=== PATIENT | female | born 1950 | race Caucasian/White ===

== ENCOUNTER → 2016-09-29 | Outpatient (CLI) | payer OTHER ==
[~2016-09-29] MED LIST: AMAN100T PO; ASPI-428 PO; AZL/5 PO; CALC500C70 PO; CARB25TA12 PO; CARB25TA16 PO; CLON1TAB3 PO; DIAZ-165 PO; HYDR-5688 PO; IBUP-103 PO; IBUP-1050 PO; KETO10TA PO; MELO7.5T5 PO; NAPR-1169 PO; TAMO20TA47 PO
--- NOTE | 2016-09-29 15:12 | MAMMOGRAPHY REPORT ---
BILATERAL DIGITAL SCREENING MAMMOGRAM WITH CAD: 09/29/2016 CLINICAL HISTORY: Routine screening examination. TECHNIQUE: Current study was also evaluated with a Computer Aided Detection (CAD) system. COMPARISON: Comparison is made to exams dated: 09/26/2015 mammogram, 09/21/2013 mammogram, 09/22/2014 mammogram, 09/20/2012 mammogram, 09/19/2011 mammogram, and 09/18/2010 mammogram - [facility]. BREAST COMPOSITION: The tissue of both breasts is heterogeneously dense, which may obscure small ma sses. FINDINGS: There are possible clustered microcalcifications in the 9:00 to 10:00 left breast, for wh ich additional spot magnification views are recommended. A 6 mm dense asymmetry in the inferior far posterior left breast, only seen on the MLO view could represent normal overlapping fibroglandular tissue, however additional spot compression tomosynthesis views and possibly ultrasound are recommen ded. No other suspicious mass, architectural distortion or cluster of microcalcifications is seen. IMPRESSION: ACR BI-RADS CATEGORY 0: INCOMPLETE EVALUATION: NEED ADDITIONAL IMAGING EVALUATION The possible clustered microcalcifications in the left breast, and a 6 mm asymmetry in the posterior inferior left breast need additional evaluation. The patient will be called to schedule an appointment. Approximately 10% of breast cancers are not detected with mammography. A negative mammographic repor t should not delay biopsy if a clinically suggestive mass is present. Tiffanie Yee M.D. ay/:09/29/2016 14:41:06 Patient Financial Coordinator: Katherine CARRILLO)(Leo), [facility] letter sent: Addl Imaging 0 BI-RADS Code: ACR BI-RADS Category 0: Incomplete Evaluation: Need Additional Imaging Evaluation
== END | disposition home or self-care (01) ==
LOC: C.MAMM 10:38
PROVIDERS: ATTEND Student in an Organized Health Care Education/Training Program
DX: Z12.31 Encounter for screening mammogram for malignant neoplasm of breast (principal); N64.89 Other specified disorders of breast; R92.8 Other abnormal and inconclusive findings on diagnostic imaging of breast

== ENCOUNTER → 2016-10-09 | Outpatient (CLI) | payer OTHER ==
--- NOTE | 2016-10-09 13:26 | MAMMOGRAPHY REPORT ---
UNILATERAL LEFT DIGITAL DIAGNOSTIC MAMMOGRAM TOMOSYNTHESIS: 10/09/2016 CLINICAL HISTORY: Callback from screening mammogram for left breast asymmetry and left breast calcif ications. TECHNIQUE: Breast tomosynthesis in addition to standard 2D mammography was performed. Spot magnifi cation left CC and ML views and spot compression left CC and MLO 2-D and tomosynthesis images were o btained. COMPARISON: Comparison is made to exams dated: 09/29/2016 mammogram, 09/22/2014 mammogram, 09/26/2015 mammogram, 09/21/2013 mammogram, 09/20/2012 mammogram, and 09/19/2011 mammogram - [facility]. BREAST COMPOSITION: The tissue of the left breast is heterogeneously dense, which may obscure small masses. FINDINGS: The previously described asymmetry seen within the left breast posteriorly on the MLO view effaces o n the spot compression view and has the appearance of normal overlapping fibroglandular tissue. Spot magnification views of the left breast demonstrate a small 2 mm cluster of punctate calcificati ons in the left upper inner quadrant posteriorly. In retrospect, the calcifications are likely not significantly changed compared to the cc view from the 09/22/2014 exam, and are therefore probably be nign. There are grouped faint calcifications within the left upper inner quadrant more anteriorly, which a re not clearly stable compared to prior exams and are therefore indeterminant. Stereotactic biopsy is recommended for further evaluation, however, the patient does not want biopsy and would prefer sh ort interval follow-up. It was discussed with the patient that DCIS is in the differential for the calcifications however she would still like to opt for follow-up. Therefore, recommend follow-up di agnostic mammograms in 6 months. IMPRESSION: ACR-BI-RADS CATEGORY 3: PROBABLY BENIGN 1. Grouped faint calcifications in the left upper inner quadrant are not clearly stable compared to prior exams and are therefore indeterminant and stereotactic biopsy is recommended for further evalu ation. However, the patient does not want biopsy and would prefer follow-up. Therefore, recommend follow-up diagnostic mammograms of the left breast in 6 months to reevaluate. 2. Small cluster of calcifications in the left upper inner quadrant posteriorly is likely stable co mpared to the 2014 exam and is therefore probably benign. Recommend follow-up diagnostic mammograms in 6 months to reevaluate. The patient has been verbally notified of the results. Approximately 10% of breast cancers are not detected with mammography. A negative mammographic repor t should not delay biopsy if a clinically suggestive mass is present. Luisa Holt M.D. ah/:10/09/2016 12:21:27 Keel Press Operator: Katherine SYKES(Antionette)(Leo), [facility] letter sent: Follow Up Recommended 3 BI-RADS Code: ACR-BI-RADS Category 3: Probably Benign
== END | disposition home or self-care (01) ==
LOC: C.MAMM 11:03
PROVIDERS: ATTEND Student in an Organized Health Care Education/Training Program
DX: R92.0 Mammographic microcalcification found on diagnostic imaging of breast (principal); N64.9 Disorder of breast, unspecified

== ENCOUNTER → 2016-10-24 | Outpatient (CLI) | payer OTHER ==
[~2016-10-24] MED LIST changes: -TAMO20TA47 PO; +TAMO20TA9 PO
--- NOTE | 2016-10-24 13:24 | Discharge Instructions ---
Discharge Instructions Procedure Procedure Date: Oct 24, 2016. Reason for visit: Left Calcifications. Discharge Discharge Date: Oct 24, 2016. Discharge Diagnosis: status post breast biopsy Medications Restart Stopped Medication(s): ACTIVITY RECOMMENDATIONS: * No lifting, pushing, pulling or exercising the affected side for three days. RETURN TO SCHOOL/WORK: * You may return to work/school after the procedure, but do not perform any strenuous activities for 24 to 48 hours. MEDICATIONS: * Tylenol (two 325 mg) every four to six hours if needed for mild pain (if not allergic to Tylenol). DIET: * Resume previous diet. SPECIAL CARE INSTRUCTIONS: * Keep biopsy site dry for 24 hours. May shower after 24 hours, but do not soak (bathe) incision. * May remove Tegaderm (plastic patch) tomorrow AFTER showering. * Leave the steri-strips on for one week. Allow the steri-strips to fall off by themselves. If not off after one week, you may remove them. You may place a Bandaid crosswise over the strips, if desired. * Apply ice 10 minutes on and 10 minutes off as needed. * Wear a bra at bedtime to sleep more comfortably for 2-3 days. * Your referring physician should have the results after approximately 5 to 7 business days. * Call for unusual bleeding, fever, drainage, etc or if you have any questions call during normal business hours or after hours call Dr Holt, . FOLLOW UP VISIT: Follow-up with Referring Physician as scheduled. [facility] Recommendations: Call your doctor if: * Temperature above 101 degrees * Pain not relieved by pain medicine ordered * There is increased drainage or redness from any incision * You have any unanswered questions or concerns. Your Doctors Instructions noted above were prepared by provider Luisa Holt. Patient Signature Section: Patient Instructions Signature Page Marifer Farida Patient (or Guardian) Signature/Date: I have read and understand the instructions given to me by my caregivers. Caregiver/RN/Doctor Signature/Date: The above-named patient and/or guardian has received patient instructions on this date. + Original Patient Signature Page (only) stays with chart. Please make copy for patient.
--- NOTE | 2016-10-24 14:30 | MAMMOGRAPHY REPORT ---
UNILATERAL LEFT DIGITAL DIAGNOSTIC MAMMOGRAM: 10/24/2016 CLINICAL HISTORY: Status post left breast stereotactic biopsy. TECHNIQUE: Postprocedural left CC and ML views were obtained. COMPARISON: Comparison is made to exams dated: 10/09/2016 mammogram, 09/26/2015 mammogram, 09/22/2014 m ammogram, 09/21/2013 mammogram, and 09/29/2016 mammogram - [facility]. BREAST COMPOSITION: The tissue of the left breast is heterogeneously dense, which may obscure small masses. FINDINGS: There are postbiopsy changes seen in the expected location of the biopsied calcifications in the le ft upper inner quadrant. There is a possible small postbiopsy hematoma at the biopsy site measuring 1.5 cm. A clip was not placed due to patient request. IMPRESSION: POST PROCEDURE IMAGING FOR MARKER PLACEMENT Post biopsy changes noted at the site of the biopsied calcifications in the left upper inner quadran t. Pending benign pathology results, recommend follow-up diagnostic mammograms of the left breast i n 6 months to reevaluate the other cluster of calcifications seen more posteriorly. Approximately 10% of breast cancers are not detected with mammography. A negative mammographic repor t should not delay biopsy if a clinically suggestive mass is present. Luisa Holt M.D. ah/:10/24/2016 13:53:08 Attending Technologist: Rachel CARRILLO)(M), [facility] Horticulturalist: Katherine Narayan, [facility] BI-RADS Code: Post Procedure Imaging For Marker Placement
--- NOTE | 2016-10-24 14:30 | MAMMOGRAPHY REPORT ---
THIS REPORT HAS BEEN AMENDED. STEREOTACTIC GUIDED BIOPSY LEFT BREAST: 10/24/2016 CLINICAL HISTORY: Indeterminate calcifications in the left upper inner quadrant. PATIENT CONSENT: The procedure, risks, benefits, and alternatives of stereotactic biopsy with clip p lacement were discussed with the patient, and verbal and written consent was obtained. The patient refuses clip placement. A timeout was performed immediately prior to the procedure. PROCEDURE DESCRIPTION: With stereotactic guidance, aseptic technique, and lidocaine as a local anest hetic (1% lidocaine to anesthetize the skin and 1% lidocaine with epinephrine to anesthetize the sabas per tissues), the area of concern was sampled multiple times with a 9-gauge vacuum-assisted biopsy n eedle (Suros Eviva). The path of approach was craniocaudal. The specimen radiograph demonstrates c alcifications to be present in the samples. A clip was not placed due to patient request. Direct p ressure was applied at the biopsy site and hemostasis was readily achieved. The patient tolerated t he procedure without complication. Postprocedure mammograms were obtained; see separate dictation f or details. She was given wound care instructions. COMPARISON: Comparison is made to exams dated: 10/09/2016 mammogram, 09/29/2016 mammogram, 09/26/2015 m ammogram, and 09/22/2014 mammogram - [facility]. IMPRESSION: STEREOTACTIC GUIDED BIOPSY Stereotactic biopsy of indeterminate calcifications in the left upper inner quadrant. A biopsy clip was not placed due to patient request. Pending benign pathology results, recommend follow-up diagn ostic mammograms of the left breast in 6 months to confirm stability of the other cluster in the lef t breast far posteriorly. Luisa Holt M.D. ah/:10/24/2016 13:27:18 Attending Technologist: Rachel CARRILLO)(Leo), [facility] Duty Engineer: Katherine Narayan, [facility] AMENDMENT: 10/29/2016 Luisa Holt M.D. The pathology results from stereotactic biopsy of left breast calcifications reviewed on 10/29/2016. The pathology showed atypical ductal hyperplasia, columnar cell change, and microcalcifications ass ociated with benign ductal elements. Given the presence of atypia, surgical excision is recommended . Additionally, given the presence of atypia, recommend stereotactic biopsy of the other smaller cl uster of calcifications seen within the left upper inner quadrant posteriorly.
== END | disposition home or self-care (01) ==
LOC: C.MAMM 12:29
PROVIDERS: ATTEND Student in an Organized Health Care Education/Training Program
DX: R92.0 Mammographic microcalcification found on diagnostic imaging of breast (principal); N60.82 Other benign mammary dysplasias of left breast

== ENCOUNTER → 2017-01-16 | Day surgery (SDC) | payer OTHER ==
[2017-01-13 16:21] VITALS: Ht 170.2 cm; Wt 72.7 kg
[~2017-01-16] VITALS: Ht 170.2 cm; Wt 72.7 kg
[~2017-01-16] MED LIST changes: +DEXAMETHASONE SOD INJ 4 MG/ML VIAL ONE; -IBUP-1050 PO; +LIDOCAINE HCL 1% MPF 5 ML VIAL ONE
--- NOTE | 2017-01-16 07:31 | History & Physical Bridge - SC ---
H&P Re-Evaluation Bridge Note: I have examined the patient, reviewed the History & Physical and in the interval since the performance of the History & Physical I have noted the following changes of clinical significance: No changes noted
--- NOTE | 2017-01-16 07:52 | Discharge Instructions-SurgCtr ---
Discharge Instructions Date of Service Jan 16, 2017. Visit Reason for Visit: Spondylolisthesis Discharge Discharge Diagnosis / Problem: as above Discharge Goals Goal(s): Improve function Activity Recommendations Activity Limitations: as noted below Lifting Limitations: until after follow-up appointment Exercise/Sports Limitations: until after follow-up appointment May Resume Sexual Activity: after follow-up appointment Anesthesia . Post Anesthesia Instructions: If you have had General Anesthesia or IV Sedation: * Do not drive today. * Resume driving when surgeon permits. * Do not make important decisions or sign legal documents today. * Call surgeon for: 1. Temperature elevations greater than 101 degrees F. 2. Uncontrollable pain. 3. Excessive bleeding. 4. Persistent nausea and vomiting. 5. Medication intolerance (nausea, vomiting or rash). * For nausea and vomiting use only clear liquids such as: tea, soda, bouillon until nausea subsides, then gradually increase diet as tolerated. * If you have any concerns or questions, call your surgeon's office. If physician is unavailable and it is an emergency, call 911 or go to the nearest emergency room. . Diet Recommendations Home Diet: no limitations Procedures Procedures Performed: Lumber Epidural Injection L4-L5. Pending Studies Studies pending at discharge: no Medical Emergencies . Who to Call and When: Medical Emergencies: If at any time you feel your situation is an emergency, please call 911 immediately. . Non-Emergent Contact Non-Emergency issues call your: Surgeon . . "Provider Documentation" section prepared by Broderick Rodríguez. .
--- NOTE | 2017-01-16 07:53 | [facility] Post Operative Brief Note ---
Immediate Operative Summary Operative Date Jan 16, 2017. Pre-Operative Diagnosis Spondylolisthesis Post-Operative Diagnosis same Procedure(s) Performed Lumber Epidural Injection L4-L5. Surgeon Dr. Luli Rodríguez Sexual Assault Counsellor Surgeon(s) 0 Estimated Blood Loss 0 Findings spondy Specimens 0 Complication(s) None Disposition Recovery Room / PACU
[2017-01-16 07:56] VITALS: BP 155/87; PULSE 77; TEMP 36.6; O2SAT 99
--- NOTE | 2017-01-16 08:05 | OPERATIVE REPORT ---
DATE OF OPERATION: 01/16/2017 PREOPERATIVE DIAGNOSIS: Grade 1, possibly grade 2 spondylolisthesis, lumbar spine. POSTOPERATIVE DIAGNOSIS: Same. PROCEDURE: Epidural steroid injection L4-L5 lumbar spine. SURGEON: Dr. Rodríguez. PROCEDURE: The patient was taken to the minor procedure room, scrubbed with Betadine. I engaged the 22 gauge Tuohy needle to the epidural space, left side and right side. One mL of dexamethasone injected without incident. The patient tolerated it well with return to recovery in satisfactory and stable. No complications. No blood loss. I attest to the content of the Intraoperative Record and any orders documented therein. Any exception s are noted below.
== END | disposition home or self-care (01) ==
LOC: X.SURG 06:23
PROVIDERS: ATTEND Orthopaedic Surgery Orthopaedic Surgery of the Spine
DX: M43.16 Spondylolisthesis, lumbar region (principal); M54.5 Low back pain; I10 Essential (primary) hypertension; Z85.3 Personal history of malignant neoplasm of breast; Z82.49 Family history of ischemic heart disease and other diseases of the circulatory system; Z82.3 Family history of stroke; Z80.0 Family history of malignant neoplasm of digestive organs; Z80.42 Family history of malignant neoplasm of prostate; Z51.0 Encounter for antineoplastic radiation therapy; D05.12 Intraductal carcinoma in situ of left breast

== ENCOUNTER → 2017-02-06 | Day surgery (SDC) | payer OTHER ==
[2017-02-03 09:13] VITALS: Ht 170.2 cm; Wt 72.7 kg
[~2017-02-06] VITALS: Ht 170.2 cm; Wt 72.7 kg
[~2017-02-06] MED LIST changes: -DIAZ-165 PO; -KETO10TA PO; +TAMO20TA47 PO; -TAMO20TA9 PO
--- NOTE | 2017-02-06 08:19 | [facility] Operative Report ---
Operative Report Operative Date Feb 06, 2017. Pre-Operative Diagnosis si joint pain, stenosis Procedure(s) Performed si joint injection , bilateral. do L2-3 Findings as above Complication(s) None Disposition Recovery Room / PACU I attest to the content of the Intraoperative Record and any orders documented therein. Any exceptions are noted below.
--- NOTE | 2017-02-06 08:33 | [facility] Post Operative Brief Note ---
Immediate Operative Summary Operative Date Feb 06, 2017. Pre-Operative Diagnosis Low Back Pain and Lower Extremity Difficulty Post-Operative Diagnosis same Procedure(s) Performed L4-[address] Rodríguez Rag Baler Surgeon(s) none Estimated Blood Loss 0ml Findings stenosis Specimens none Complication(s) None Disposition Recovery Room / PACU
--- NOTE | 2017-02-06 08:33 | Discharge Instructions-SurgCtr ---
Discharge Instructions Date of Service Feb 06, 2017. Visit Reason for Visit: Spondylolisthesis Discharge Discharge Diagnosis / Problem: same Discharge Goals Goal(s): Improve function Activity Recommendations Activity Limitations: as noted below Exercise/Sports Limitations: until after follow-up appointment May Resume Sexual Activity: after follow-up appointment Shower/Bathe: no limitations Anesthesia . Post Anesthesia Instructions: If you have had General Anesthesia or IV Sedation: * Do not drive today. * Resume driving when surgeon permits. * Do not make important decisions or sign legal documents today. * Call surgeon for: 1. Temperature elevations greater than 101 degrees F. 2. Uncontrollable pain. 3. Excessive bleeding. 4. Persistent nausea and vomiting. 5. Medication intolerance (nausea, vomiting or rash). * For nausea and vomiting use only clear liquids such as: tea, soda, bouillon until nausea subsides, then gradually increase diet as tolerated. * If you have any concerns or questions, call your surgeon's office. If physician is unavailable and it is an emergency, call 911 or go to the nearest emergency room. . Diet Recommendations Home Diet: no limitations Procedures Procedures Performed: L4-5 Epidural Steroid Injection Pending Studies Studies pending at discharge: no Medical Emergencies . Who to Call and When: Medical Emergencies: If at any time you feel your situation is an emergency, please call 911 immediately. . Non-Emergent Contact Non-Emergency issues call your: Surgeon . . "Provider Documentation" section prepared by Broderick Rodríguez. .
[2017-02-06 08:36] VITALS: TEMP 36.9
--- NOTE | 2017-02-06 08:36 | [facility] Operative Report ---
Operative Report Operative Date Feb 06, 2017. Pre-Operative Diagnosis Low Back Pain and Lower Extremity Difficulty Procedure(s) Performed do Surgeon Dr Rodríguez Head Athletic Trainer/Strength Coach Surgeon(s) none Estimated Blood Loss 0ml Findings stenosis Specimens none Complication(s) None Disposition Recovery Room / PACU I attest to the content of the Intraoperative Record and any orders documented therein. Any exceptions are noted below.
[2017-02-06 08:43] VITALS: BP 155/92; PULSE 73; O2SAT 100
--- NOTE | 2017-02-18 07:03 | [facility] Operative Report ---
Operative Report Operative Date Feb 18, 2017. Pre-Operative Diagnosis Low Back Pain and Lower Extremity Difficulty Post-Operative Diagnosis same Procedure(s) Performed L4-[address] Rodríguez Applications Trainer Surgeon(s) none Estimated Blood Loss 0ml Findings stenosis and spondylolisthes Specimens none Complication(s) None Disposition Recovery Room / PACU Description of Procedure do L4-5 I attest to the content of the Intraoperative Record and any orders documented therein. Any exceptions are noted below.
== END | disposition home or self-care (01) ==
LOC: X.SURG 06:41
PROVIDERS: ATTEND Orthopaedic Surgery Orthopaedic Surgery of the Spine
DX: Z51.0 Encounter for antineoplastic radiation therapy (principal); D05.12 Intraductal carcinoma in situ of left breast; M53.3 Sacrococcygeal disorders, not elsewhere classified; M48.06 Spinal stenosis, lumbar region
CPT/HCPCS: 62323; G0260

== ENCOUNTER → 2017-02-20 | Outpatient (CLI) | payer OTHER ==
[~2017-02-20] MED LIST changes: -ASPI-428 PO; -CALC500C70 PO; -DEXAMETHASONE SOD INJ 4 MG/ML VIAL ONE; -LIDOCAINE HCL 1% MPF 5 ML VIAL ONE; -TAMO20TA47 PO
[2017-02-20 17:04] LABS: BLOOD UREA NITROGEN 18 mg/dl (7-18)
== END | disposition home or self-care (01) ==
LOC: C.LAB 15:06
PROVIDERS: ATTEND Orthopaedic Surgery Orthopaedic Surgery of the Spine
DX: M47.817 Spondylosis without myelopathy or radiculopathy, lumbosacral region (principal)

== ENCOUNTER → 2017-02-23 | Outpatient (CLI) | payer OTHER ==
[~2017-02-23] MED LIST changes: +CALC500C70 PO; +GADAVIST IV PRN; +TAMO20TA47 PO
--- NOTE | 2017-02-23 09:47 | DIAGNOSTIC IMAGING REPORT ---
MRI LUMBAR SPINE COMBINATION CLINICAL HISTORY: Severe back pain. History of breast carcinoma. TECHNIQUE: Sagittal and axial T1, T2 and STIR images were obtained. COMPARISON STUDY: No previous studies for comparison. OBSERVATIONS: There are no areas of marrow replacement viewed as suspicious for metastatic disease. L1-2: No disc protrusions or extrusions. No evidence of spinal canal or neural foraminal compromise. L2-3: No disc protrusions or extrusions. No evidence of spinal canal or neural foraminal compromise. L3-4: There is a mild circumferential disc bulge. There is a slight triangular configuration of the thecal sac, but significant spinal stenosis is not felt to be present L4-5: There is a grade 1 spondylolisthesis of L4 on L5. There is a broad-based disc protrusion. There is moderate spinal stenosis. There is bilateral facet joint arthropathy. There is bilateral foraminal narrowing. L5-S1: No disc protrusions or extrusions. No evidence of spinal canal or neural foraminal compromise. The conus medullaris and cauda equina appear normal. There are no pathologically enhancing masses. IMPRESSION: Multilevel degenerative changes. The study is most significant for a broad-based disc protrusion at the L4-5 level. This in association with facet joint arthropathy, and a grade 1 spondylolisthesis of L4 on L5 results in moderate spinal stenosis and bilateral foraminal narrowing Electronically signed by: Zhao Gaona M.D. 02/23/2017 9:46 AM Dictated Date/Time: 02/23/2017 9:41 AM
== END | disposition home or self-care (01) ==
LOC: C.MRIBC 08:28
PROVIDERS: ATTEND Orthopaedic Surgery Orthopaedic Surgery of the Spine
DX: M47.817 Spondylosis without myelopathy or radiculopathy, lumbosacral region (principal); Z85.3 Personal history of malignant neoplasm of breast

== ENCOUNTER → 2017-03-17 | Outpatient (CLI) | payer OTHER ==
[~2017-03-17] MED LIST changes: -GADAVIST IV PRN; -MELO7.5T5 PO; -NAPR-1169 PO
[2017-03-17 15:05] VITALS: BP 156/83; PULSE 76; TEMP 36.8; O2SAT 99
--- NOTE | 2017-03-17 16:19 | Radiation Oncology Follow-Up ---
Radiation Oncology Follow-Up Date of Visit Mar 17, 2017. 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 Last Edited By: Zeynep Bardales on Mar 06, 2017 09:23 History of Present Illness Ms. Iqbal is a 66-year-old female with Parkinson's disease who recently presented with an abnormal finding on a bilateral digital screening mammogram completed on 09/29/2016; the mammogram revealed a cluster of microcalcification in the left breast and a 6 mm asymmetry in the posterior inferior left breast. The patient underwent a unilateral left digital diagnostic mammogram with Tomosynthesis on 10/09/2016 which confirmed a grouped faint calcification a left upper inner quadrant breast which are not clearly stable as well as a small cluster of calcifications in the left upper inner quadrant that did appear stable. The patient underwent a stereotactic guided biopsy on 2016 of the breast mass in the left upper inner quadrant. Pathology from the biopsy revealed atypical ductal hyperplasia and no evidence of invasive carcinoma. The patient was referred to Dr. Valeria Marin who recommended an excisional biopsy to confirm no evidence of DCIS or invasive carcinoma. The patient underwent a left breast lumpectomy on 11/25/2016 which revealed ductal carcinoma in situ that measured at least 10 mm in the greatest dimension; the tumor was grade 2 and there was comedonecrosis present. The margins were close and measured 0.5 mm. The tumor was estrogen receptor positive and progesterone receptor positive. Dr. Marin brought the patient back for a reexcision to obtain larger margins on 12/17/2016; the pathology revealed 2 foci of low grade residual ductal carcinoma in situ with a new 1.5 mm margin. Ultimately, Dr. Marin was able to achieve negative margins. The patient was seen by Dr. Rigoberto Blake from medical oncology who recommended tamoxifen or Femara for [address] Blake and Dr. Marin both recommended consideration of adjuvant radiation therapy. We are now seeing the patient in consultation. She had a CT simulation was found to be a candidate for hypo-fractionation. Radiation was completed 02/17/2017 she received 5130 cGy. The patient is doing relatively well overall. She states her only significant issues that sometimes she does have difficulty with unintentional tremors due to her Parkinson's disease. Otherwise, she has healed up well from surgery. She completed a CT simulation was found to be a candidate for hypo- fractionation. Radiation was completed 02/11/2017 she received 5130 cGy. Interim History She's been doing well over this past month she did have dry skin. The dark skin has been peeling. She had swelling at the nipple which was tender. She's been using aloe vera on the nipple. She's been using the Lidex to the outer portion of the breast. She's noted no masses or tenderness and no change in the axilla. She is seen Dr. Marin in follow-up and mammography has been scheduled. She is seeing Dr. Blake and is now on tamoxifen. She is tolerating this other than hot flashes. Allergies Coded Allergies: Adhesives (Verified Allergy, Unknown, Rash, 02/06/17) Gold (Verified Allergy, Unknown, Rash, 02/06/17) Nickel (Verified Allergy, Unknown, Discolors skin, 02/06/17) Home Medications Scheduled Amantadine Hcl (Symmetrel), 1 TAB PO BID Calcium/Vitamin D (Os-Elvis 500 Plus D), 1 TAB PO DAILY Carbidopa/Levodopa (Sinemet Cr 25MG/100MG), 2 TAB PO HS Carbidopa/Levodopa (Sinemet 25MG/100MG), 1 TAB PO QID Hydrocodone/Acetaminophen 5MG/325MG ([place] 5MG/325MG), 1 TAB PO Q6 Ibuprofen Tab (Advil), 200 MG PO QID Rasagiline (Azilect), 0.5 TAB PO QAM Scheduled PRN Clonazepam (Klonopin), 1 MG PO HS PRN for Insomnia Miscellaneous Medications Tamoxifen (Nolvadex), 20 MG PO Review of Systems Gastrointestinal: Symptoms: Constipation GI Comments: Chronic constipation - manageable at home; Oral: Symptoms: No Problems Respiratory: Symptoms: WNL Urinary: Symptoms: WNL Skin: Other Skin Symptoms: Dry peely dark brown old desq on left breast/areola/ nipple Breast: Right Upper Arm Measurement: 32.0 Right Mid Arm Measurement: 24.8 Right Wrist Measurement: 16.0 Left Upper Arm Measurement: 33.0 Left Mid Arm Measurement: 24.5 Left Wrist Measurement: 15.5 Arm Dominence: Left Physical Exam Vital Signs Date Time Temp Pulse Resp B/P (MAP) Pulse Ox O2 Delivery O2 Flow Rate FiO2 03/17/17 15:05 36.8 76 20 156/83 99 Pain: Patient Pain Scale: 0 - 10 Initial Pain Intensity: 1.0 Fatigue: None General Appearance: no apparent distress Eyes: normal inspection, EOMI ENT: normal ENT inspection, hearing grossly normal Neck: supple, no adenopathy, thyroid normal Respiratory/Chest: lungs clear, no respiratory distress, no accessory muscle use Breast: Breast examination reveals well-healed incisions of the left breast. She has resolving hyperpigmentation. There is mild swelling at the nipple. There are no masses or tenderness no axillary adenopathy. Using the [place] score cosmesis she currently has a fair outcome due to the hyperpigmentation that is resolving. The right breast showed no masses or tenderness and no axillary adenopathy. Cardiovascular: regular rate, rhythm, no gallop, no murmur Abdomen: non tender, soft Extremities: no pedal edema Neurologic/Psychiatric: no motor/sensory deficits, alert, normal mood/affect Skin: warm/dry Laboratory Studies Test 02/20/17 15:36 Blood Urea Nitrogen 18 mg/dl (7-18) Creatinine 0.80 mg/dl (0.60-1.20) Estimated GFR () 89.0 Estimated GFR (Non- 76.8 Assessment & Plan Plan: Patient is also seen and examined by Dr. Ag. She continues on tamoxifen. Follow-up mammography has been scheduled. She is going to continue to have these at [facility]. She has Parkinson's and has tremors and occasional involuntary movements. She stated at this facility mammography can be done with her sitting in a chair. This helps to keep her in the same position. Today we completed a cancer survivorship care plan. A copy the documents given to the patient. She was given Aquaphor to be used at bedtime. She is can tingling the aloe vera to the nipple. We asked her to return to our office in one month. She may call if she has any questions or concerns in the interim. I agree with note created by Zeynep Bardales PA-C. I reviewed the patient's chart and information with her. I have examined and evaluated the patient. I reviewed relevant clinical information and answered the patient's and/or family' s questions. Total Time In Follow-Up I spent 20 minutes speaking to the patient performing examination. I spent 20 minutes reviewing information, preparing the survivorship document, and completing this note. AK I spent 15 minutes examining and counseling the patient. OUTREACH DIRECTOR Copy To Valeria Marin MD; Jo Ann Smith D.O.; Rigoberot Blake M.D.
== END | disposition home or self-care (01) ==
LOC: C.ONC 14:44
PROVIDERS: ATTEND Physician Assistant Medical
DX: D05.12 Intraductal carcinoma in situ of left breast (principal)

== ENCOUNTER → 2017-09-22 | Outpatient (CLI) | payer OTHER ==
[2017-03-17 15:05] VITALS: BP 156/83; PULSE 76
[~2017-09-22] MED LIST changes: +DOCU-94 PO; +FMR25 PO; -HYDR-5688 PO; -TAMO20TA47 PO
[2017-09-22 13:27] VITALS: BP 153/79; PULSE 80; TEMP 36.6; O2SAT 100
--- NOTE | 2017-09-22 16:18 | Radiation Oncology Follow-Up ---
Radiation Oncology Follow-Up Date of Visit Sep 22, 2017. 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 Last Edited By: Zeynep Bardales on Mar 06, 2017 09:23 History of Present Illness Ms. Iqbal has a history of Parkinson's disease who recently presented with an abnormal finding on a bilateral digital screening mammogram completed on 2016; the mammogram revealed a cluster of microcalcification in the left breast and a 6 mm asymmetry in the posterior inferior left breast. The patient underwent a unilateral left digital diagnostic mammogram with Tomosynthesis on 10/09/2016 which confirmed a grouped faint calcification a left upper inner quadrant breast which are not clearly stable as well as a small cluster of calcifications in the left upper inner quadrant that did appear stable. The patient underwent a stereotactic guided biopsy on 10/24/2016 of the breast mass in the left upper inner quadrant. Pathology from the biopsy revealed atypical ductal hyperplasia and no evidence of invasive carcinoma. The patient was referred to Dr. Valeria Marin who recommended an excisional biopsy to confirm no evidence of DCIS or invasive carcinoma. The patient underwent a left breast lumpectomy on 11/25/2016 which revealed ductal carcinoma in situ that measured at least 10 mm in the greatest dimension; the tumor was grade 2 and there was comedonecrosis present. The margins were close and measured 0.5 mm. The tumor was estrogen receptor positive and progesterone receptor positive. Dr. Marin brought the patient back for a reexcision to obtain larger margins on 12/17/2016; the pathology revealed 2 foci of low grade residual ductal carcinoma in situ with a new 1.5 mm margin. Ultimately, Dr. Marin was able to achieve negative margins. The patient was seen by Dr. Rigoberto Blake from medical oncology who recommended tamoxifen or Femara for [address] Blake and Dr. Marin both recommended consideration of adjuvant radiation therapy. We are now seeing the patient in consultation. She had a CT simulation was found to be a candidate for hypo-fractionation. Radiation was completed 02/17/2017 she received 5130 cGy. The patient is doing relatively well overall. She states her only significant issues that sometimes she does have difficulty with unintentional tremors due to her Parkinson's disease. Otherwise, she has healed up well from surgery. She completed a CT simulation was found to be a candidate for hypo- fractionation. Radiation was completed 02/11/2017 she received 5130 cGy. Interim History She's been doing well over the past 6 months. She has noted no changes to her breast. She denies any areas of pain or tenderness area and she is noted no masses. She has a tight feeling in the axilla. She has been doing stretching exercises and this has improved. She's been seen in follow-up by Dr. Marin. She is scheduled for mammography on 10/02/2017. She had been started on tamoxifen. This was discontinued due to side effects. This was especially the side effect of hot flashes. She also had a metallic taste in her mouth as well as feeling of being emotional. The medication was changed to Femara and this is better tolerated. Allergies Coded Allergies: Adhesives (Verified Allergy, Unknown, Rash, 08/04/17) Gold (Verified Allergy, Unknown, Rash, 08/04/17) Nickel (Verified Allergy, Unknown, Discolors skin, 08/04/17) Home Medications Scheduled Amantadine Hcl (Symmetrel), 1 TAB PO BID Calcium/Vitamin D (Os-Elvis 500 Plus D), 1 TAB PO DAILY Carbidopa/Levodopa (Sinemet Cr 25MG/100MG), 2 TAB PO HS Carbidopa/Levodopa (Sinemet 25MG/100MG), 1 TAB PO QID Letrozole (Femara), 2.5 MG PO DAILY Rasagiline (Azilect), 0.5 TAB PO QAM Scheduled PRN Clonazepam (Klonopin), 1 MG PO HS PRN for Insomnia Docusate Sodium (Colace), 1 CAP PO DAILY PRN for Constipation Ibuprofen Tab (Advil), 200 MG PO QID PRN for Pain Review of Systems Gastrointestinal: Symptoms: Constipation GI Comments: Chronic constipation manageable at home; Oral: Symptoms: No Problems Respiratory: Symptoms: WNL Urinary: Symptoms: Incontinence Comments: Can have urinary leakage- as getting on commode will leak Skin: Symptoms: No Problems Other Skin Symptoms: Dry peely dark brown old desq on left breast/areola/ nipple Breast: Right Upper Arm Measurement: 32.5 Right Mid Arm Measurement: 24.5 Right Wrist Measurement: 15.5 Left Upper Arm Measurement: 32.0 Left Mid Arm Measurement: 24.0 Left Wrist Measurement: 15.0 Arm Dominence: Right Physical Exam Vital Signs Date Time Temp Pulse Resp B/P (MAP) Pulse Ox O2 Delivery O2 Flow Rate FiO2 09/22/17 13:27 36.6 80 16 153/79 100 Fatigue: None General Appearance: no apparent distress Eyes: normal inspection, EOMI ENT: normal ENT inspection, hearing grossly normal Neck: no adenopathy, thyroid normal Respiratory/Chest: lungs clear, no respiratory distress, no accessory muscle use Breast: Breast examination reveals well-healed incisions of the left breast. There are no masses or tenderness and no axillary adenopathy. She has no skin retractions or nipple changes. Using the [place] score cosmesis she has a excellent outcome. The right breast showed no masses or tenderness and no axillary adenopathy. Cardiovascular: regular rate, rhythm, no gallop, no murmur Extremities: no pedal edema Neurologic/Psychiatric: no motor/sensory deficits, alert, normal mood/affect Skin: warm/dry Pain Management Patient Reports Pain: Yes (States her back pain can "be anywhere and down either leg") Pain Location: Left lower back/back of top of legs Patient Preferred Pain Scale: 0 - 10 Initial Pain Intensity: 1.0 Pain Management Plan Her pain is minimal. She requires no pain management through our office. Laboratory Laboratory Results: not applicable Pathology Pathology Results: not applicable Imaging Imaging Studies: were reviewed, and pertinent findings noted below Imaging Comments Results MAMMOGRAM, DIAGNOSTIC, UNILAT [G0206.3] (Spec. #[id number]) (Order [id number]) Date/Time of Imaging Study Study Completed: 05/08/2017 9:53 AM [employer] PACS Image Narrative Comparison is made to images from 11/25/2016 and images from 11/17/2016 (left) and images from 10/24/2016 and images from 10/09/2016 and images from 09/29/2016 and images from 09/26/2015. Left Breast Findings: The breast is heterogeneously dense (51% - 75% fibroglandular). This may lower the sensitivity of mammography. Post surgical changes related to breast conserving surgery for carcinoma (DCIS and ADH) are noted in the upper inner left breast. A linear wire marker indicates the overlying skin scar related to lumpectomy in this region. No new dominant mass or clustered microcalcifications suspicious for malignancy are identified. Authenticated By Authenticating Date Authenticating Time Reading Providers(s) NAHUM PATRICK MD 05-08-2017 14:37 NAHUM PATRICK MD IMPRESSION: LEFT BREAST: Findings are probably benign. A short interval follow-up is recommended in 6 months. Note: Approximately 10% of breast cancers are not detected on mammography. A negative mammographic report should not delay biopsy if a clinically suggestive mass is present. This mammogram has been analyzed with the computer aided detection system. Tomosynthesis was done. This notice contains the results of your recent mammogram, including information about breast density. If your mammogram shows that your breast tissue is dense, you should know that dense breast tissue is a common finding and is not abnormal. Statistics show many women could have dense or highly dense breasts. Dense breast tissue can make it harder to find cancer on a mammogram and may be associated with an increased risk of cancer. This information about the result of your mammogram is given to you to raise your awareness and to inform your conversations with your physician. Together, you can decide which screening options are right for you, based on your mammogram results, individual risk factors or physical examination. A report of your results was sent to your physician. Your mammographic breast density on today's study is described above. There are four categories of breast density on mammography. Fatty breasts and those with scattered fibroglandular tissue are not considered dense. Heterogeneously dense or extremely dense tissue is considered "dense". Please understand that assessment of breast density may vary from year to year. OVERALL ASSESSMENT - CATEGORY 3 - PROBABLY BENIGN; Follow up Bilateral Diagnostic mammogram is advised in September of 2017 at which time patient will be due for her annual follow up mammogram or sooner if clinically warranted.The above findings and recommendations were discussed with and understood by the patient. END OF IMPRESSION Assessment & Plan Plan: Patient was also seen and examined by Dr. Ag. She will be having a recheck mammogram 10/02/2017. She continues on the antiestrogen therapy. Continue follow-up with Dr. Marin, her primary care physician, and Dr. Ag in medical oncology. We asked her to return to our office in 1 year. She may call our office if she has any questions or concerns in the interim. She'll continue the stretching exercises for the axilla. Assessment & Plan (Attending) I agree with note created by Zeynep Bardales PA-C. I reviewed the patient's chart and information with her. I have examined and evaluated the patient. I reviewed relevant clinical information and answered the patient's and/or family' s questions. CILNICAL SCIENTIST Total Time In Follow-Up I spent 20 minutes speaking to the patient and performing examination. I spent 15 minutes reviewing information and completing this note. AK Total Time (Attending) In Follow-Up I spent 15 minutes examining and counseling the patient. CILNICAL SCIENTIST Copy To Valeria Marin MD; Jo Ann Smith D.O.; Jules Ag M.D.
== END | disposition home or self-care (01) ==
LOC: C.ONC 13:19
PROVIDERS: ATTEND Physician Assistant Medical
DX: Z08 Encounter for follow-up examination after completed treatment for malignant neoplasm (principal); Z92.3 Personal history of irradiation; Z85.3 Personal history of malignant neoplasm of breast

== ENCOUNTER 2017-11-01 12:08 | Emergency (ER) | payer OTHER ==
[~2017-11-01] VITALS: Ht 170.2 cm; Wt 74.4 kg
[2017-11-01 12:11] VITALS: TEMP 36.8; Ht 170.2 cm; Wt 74.4 kg
[2017-11-01] MEDS ORDERED: HYDROmorphone INJ 1 MG/ML SYR IV STA (12:32)
[2017-11-01] MEDS ORDERED: ONDANSETRON INJ 2 MG/ML 2 ML VIAL IV STA (12:32)
--- NOTE | 2017-11-01 12:38 | EMERGENCY ROOM VISIT NOTE ---
History Report prepared by Yrn: Rito Argueta Under the Supervision of: Dr. Jose Luis Guaman M.D. First contact with patient: 12:20 Chief Complaint: BACK PAIN Stated Complaint: BACK PAIN/ THORNE History of Present Illness The patient is a 67 year old female who presents to the Emergency Room with complaints of constant back pain beginning two days ago. The patient states that she had a spinal fusion surgery for a ruptured herniated disc done 12 days ago. She notes that she was doing well following her surgery and was discharged home. She reports that she developed a headache yesterday, prompting her to come to the emergency department today. She also complains of constipation but states that her constipation is chronic. The patient notes that took oxycodone, 2 250mg Tylenol tablets, and a muscle relaxer this morning at around 0800 with no relief of her symptoms. She reports that she has a history of breast cancer and Parkinson's disease. She rates her pain as a 5/10. Source of History: patient Onset: two days ago Position: back Symptom Intensity: 5/10 Timing: constant Associated Symptoms: + headache Note: The patient also complains of constipation. Review of Systems See HPI for pertinent positives & negatives. A total of 10 systems reviewed and were otherwise negative. Past Medical & Surgical Medical Problems: (1) Intraductal carcinoma of left breast (2) Parkinson disease (3) Previous back surgery (4) Ruptured disk Family History No pertinent family history stated. Social History Smoking Status: Never Smoker Marital Status: Housing Status: lives with family Occupation Status: retired Current/Historical Medications Scheduled Amantadine Hcl (Symmetrel), 1 TAB PO BID Calcium Carbonate (Tums), 500 MG PO TID Carbidopa/Levodopa (Sinemet Cr 25MG/100MG), 2 TAB PO HS Carbidopa/Levodopa (Sinemet 25MG/100MG), 1 TAB PO QID Cholecalciferol (Vitamin D), 1,000 UNITS PO DAILY Letrozole (Femara), 2.5 MG PO DAILY Methocarbamol (Methocarbamol), 500 MG PO Q4 Rasagiline (Azilect), 0.5 TAB PO QAM Scheduled PRN Clonazepam (Klonopin), 1 MG PO HS PRN for Insomnia Docusate Sodium (Colace), 1 CAP PO DAILY PRN for Constipation Oxycodone HCl (Oxycodone HCl), 5-10 MG PO Q4 PRN for Moderate Pain Allergies Coded Allergies: Adhesives (Verified Allergy, Unknown, Rash, 08/04/17) Gold (Verified Allergy, Unknown, Rash, 08/04/17) Nickel (Verified Allergy, Unknown, Discolors skin, 08/04/17) Physical Exam Vital Signs Date Time Temp Pulse Resp B/P (MAP) Pulse Ox O2 Delivery O2 Flow Rate FiO2 11/01/17 16:52 80 16 143/74 99 11/01/17 15:37 82 24 124/70 98 Room Air 11/01/17 14:18 77 22 143/48 96 Room Air 11/01/17 12:47 83 11/01/17 12:44 83 22 178/80 100 Room Air 11/01/17 12:11 36.8 109 18 137/82 99 Room Air Physical Exam GENERAL: Awake, alert, well-appearing, in no acute distress, able to walk on tip toes and heels, no loss of bladder or bowel control. HENT: Normocephalic, atraumatic. Oropharynx unremarkable. EYES: Normal conjunctiva. Sclera non-icteric. NECK: Supple. No nuchal rigidity. FROM. No JVD. RESPIRATORY: Clear to auscultation. CARDIAC: Regular rate, normal rhythm. Extremities warm and well perfused. Pulses equal. ABDOMEN: Soft, non-distended. No tenderness to palpation. No rebound or guarding. No masses. RECTAL: Deferred. MUSCULOSKELETAL: Chest examination reveals no tenderness. The back is symmetrical on inspection without obvious abnormality. There is no CVA tenderness to palpation. No joint edema. Surgical site running from L2 to S1, sutures in place and appear to be healing well. LOWER EXTREMITIES: Calves are equal size bilaterally and non-tender. No edema. No discoloration. NEURO: Normal sensorium. No sensory or motor deficits noted. SKIN: No rash or jaundice noted. Medical Decision & Procedures ER Provider Diagnostic Interpretation: Radiology results as stated below per my review and radiologist interpretation: LUMBAR SPINE COMBO FINDINGS: Power Generation Turbine Room Operator topogram: Bilateral posterior transpedicular screw fixation of L4-S1 with interbody spacer at L4-5. Slightly exaggerated lumbar lordosis. As mentioned, postsurgical changes of L4-S1 posterior lumbar fusion with transpedicular screw and gisele fixation. Associated laminectomy defects noted at L4 and L5. Bone graft material evident in the operative bed. 5 mm of grade 1 anterolisthesis of L4 on L5. Otherwise alignment is maintained. Vertebral body heights maintained. Interbody spacer evident at L4-5. Remainder of disc spaces preserved. Mild anterior osteophytosis noted at several levels. Allowing for limited evaluation of the soft tissues on CT, no evidence of a disc bulge. No gross evidence of spinal canal narrowing. No osseous neural foraminal narrowing though there is suggestion of mild neural foraminal narrowing on the right at L3-4 secondary to soft tissues. No evidence of a fluid collection in operative bed. Infiltration of the operative bed compatible with granulation tissue. Evaluation of the spinal canal is limited given streak artifact arising from the hardware. IMPRESSION: 1. Postsurgical changes of L4-S1 posterior lumbar fusion with L4-5 laminectomies. 2. Grade 1 anterolisthesis of L4 on L5. 3. Neural foraminal narrowing suggested on the right at L3-4 secondary to soft tissues, which could be better evaluated on MR. No gross evidence of spinal now narrowing. Electronically signed by: Skip Sheehan M.D. 11/01/2017 2:00 PM HEAD WITHOUT CONTRAST (CT) FINDINGS: [employer] Room Operator topogram: Unremarkable. Crowding of the foramen magnum could suggest tonsillar ectopia. Ventricles and sulci otherwise normal in size. Brain parenchyma normal in appearance with preserved kaba-white differentiation. No mass effect or midline shift. No hemorrhage or acute territorial infarct. No extra-axial fluid collection. Paranasal sinuses and mastoid air cells clear. Calvarium intact. IMPRESSION: 1. No acute intracranial abnormality. 2. Tonsillar ectopia suggested. Electronically signed by: Skip Sheehan M.D. 11/01/2017 1:52 PM Laboratory Results 11/01/17 13:00 Red Blood Count 4.04, Mean Corpuscular Volume 92.1, Mean Corpuscular Hemoglobin 31.7, Mean Corpuscular Hemoglobin Concent 34.4, Mean Platelet Volume 9.5, Neutrophils (%) (Auto) 72.5, Lymphocytes (%) (Auto) 18.4, Monocytes (%) (Auto) 6.0, Eosinophils (%) (Auto) 2.4, Basophils (%) (Auto) 0.3, Neutrophils # (Auto) 5.53, Lymphocytes # (Auto) 1.40, Monocytes # (Auto) 0.46, Eosinophils # (Auto) 0.18, Basophils # (Auto) 0.02 11/01/17 13:00 Test 11/01/17 13:00 11/01/17 13:16 11/01/17 14:06 White Blood Count 7.62 K/uL (4.8-10.8) Red Blood Count 4.04 M/uL (4.2-5.4) Hemoglobin 12.8 g/dL (12.0-16.0) Hematocrit 37.2 % (37-47) Mean Corpuscular Volume 92.1 fL (80-100) Mean Corpuscular Hemoglobin 31.7 pg (25-34) Mean Corpuscular Hemoglobin Concent 34.4 g/dl (32-36) Platelet Count 455 K/uL (130-400) Mean Platelet Volume 9.5 fL (7.4-10.4) Neutrophils (%) (Auto) 72.5 % Lymphocytes (%) (Auto) 18.4 % Monocytes (%) (Auto) 6.0 % Eosinophils (%) (Auto) 2.4 % Basophils (%) (Auto) 0.3 % Neutrophils # (Auto) 5.53 K/uL (1.4-6.5) Lymphocytes # (Auto) 1.40 K/uL (1.2-3.4) Monocytes # (Auto) 0.46 K/uL (0.11-0.59) Eosinophils # (Auto) 0.18 K/uL (0-0.5) Basophils # (Auto) 0.02 K/uL (0-0.2) RDW Standard Deviation 42.9 fL (36.4-46.3) RDW Coefficient of Variation 12.6 % (11.5-14.5) Immature Granulocyte % (Auto) 0.4 % Immature Granulocyte # (Auto) 0.03 K/uL (0.00-0.02) Erythrocyte Sedimentation Rate 59 mm/hr (0-21) Est Creatinine Clear Calc Drug Dose 70.1 ml/min Estimated GFR () 85.8 Estimated GFR (Non- 74.0 BUN/Creatinine Ratio 9.7 (10-20) Calcium Level 9.8 mg/dl (8.5-10.1) Total Bilirubin 0.8 mg/dl (0.2-1) Direct Bilirubin 0.1 mg/dl (0-0.2) Aspartate Amino Transf (AST/SGOT) 11 U/L (15-37) Alanine Aminotransferase (ALT/SGPT) 12 U/L (12-78) Alkaline Phosphatase 179 U/L (45-117) C-Reactive Protein 0.78 mg/dl (0-0.29) Total Protein 8.7 gm/dl (6.4-8.2) Albumin 3.9 gm/dl (3.4-5.0) Lipase 77 U/L (73-393) Bedside Hemoglobin 12.2 g/dl (12.0-16.0) Bedside Hematocrit 36 % (37-47) Bedside Sodium 139 mEq/L (135-144) Bedside Potassium 3.7 mEq/L (3.3-5.0) Bedside Chloride 100 mEq/L (101-112) Bedside Total CO2 29 mEq/l (24-31) Anion Gap 15.0 mmol/L (16-25) Bedside Blood Urea Nitrogen 7 mg/dl (7-18) Bedside Creatinine 0.8 mg/dl (0.6-1.3) Bedside Glucose (other) 103 mg/dl (70-99) Bedside Ionized Calcium (Diana) 1.15 mmol/l (1.12-1.32) Urine Color YELLOW Urine Appearance CLEAR (CLEAR) Urine pH 6.0 (4.5-7.5) Urine Specific Am[place] 1.030 (1.000-1.030) Urine Protein NEG (NEG) Urine Glucose (UA) NEG (NEG) Urine Ketones NEG (NEG) Urine Occult Blood NEG (NEG) Urine Nitrite NEG (NEG) Urine Bilirubin NEG (NEG) Urine Urobilinogen NEG (NEG) Urine Leukocyte Esterase TRACE (NEG) Urine WBC (Auto) 1-5 /hpf (0-5) Urine RBC (Auto) 0-4 /hpf (0-4) Urine Hyaline Casts (Auto) 0 /lpf (0-5) Urine Epithelial Cells (Auto) 5-10 /lpf (0-5) Urine Bacteria (Auto) NEG (NEG) Labs reviewed by ED physician. Medications Administered Medications (Trade) Dose Ordered Sig/Cirilo Route Start Time Stop Time Status Last Admin Dose Admin Hydromorphone HCl (Dilaudid Inj) 1 mg NOW STAT IV 11/01/17 12:32 11/01/17 12:37 DC 3/25/18 12:57 1 MG Ondansetron HCl (Zofran Inj) 4 mg NOW STAT IV 11/01/17 12:32 11/01/17 12:37 DC 11/01/17 12:56 4 MG Potassium Chloride (Eleanor Ciel Elix) 40 meq NOW STAT PO 11/01/17 13:39 11/01/17 13:40 DC 11/01/17 13:57 40 MEQ Cyclobenzaprine HCl (Flexeril Tab) 10 mg NOW STAT PO 11/01/17 13:49 11/01/17 13:50 DC 11/01/17 13:56 10 MG Acetaminophen (Tylenol Tab) 1,000 mg NOW STAT PO 11/01/17 14:14 11/01/17 14:15 DC 11/01/17 14:28 1,000 MG Prochlorperazine Edisylate (Compazine Inj) 5 mg NOW STAT IV 11/01/17 14:14 11/01/17 14:15 DC 11/01/17 14:28 5 MG Diphenhydramine HCl (Benadryl Inj) 50 mg NOW STAT IV 11/01/17 14:14 11/01/17 14:15 DC 11/01/17 14:28 50 MG ED Course 1221: Past medical records reviewed. The patient was evaluated in room C8. A complete history and physical examination was performed. 1232: Zofran Inj IV, Dilaudid Inj 1mg IV 1339: Potassium Chloride 40meq PO, Flexeril Tab 10mg PO 1414: Benadryl Inj 50mg PO, Compazine Inj 5mg IV, Acetaminophen 1000mg PO 1415: I reevaluated and updated the patient. She feels much better. 1427: I spoke to the patient at length. 1428: Discussed the patient's case with Dr. Narvaez - customer contact representative for Dr. Farley, Neurology 1601: The patient was accepted to [facility]. 1618: Upon reexamination the patient is stable. I discussed results and treatment plan with the patient. She verbalizes agreement and understanding. She will be transferred to [facility]. Medical Decision Differential diagnosis: Etiologies such as musculoskeletal, disc herniation, fracture, aortic disease, metastatic disease, cord compression, discitis, infection, renal colic, gastrointestinal, acute exacerbation of chronic back pain, sciatica, cauda equina, as well as others were entertained. This is a 67-year-old female who presents emergency department complaining of low back pain. The patient had surgery at [facility] approximate 9 days ago. She has not been doing physical therapy since the surgery and I suspect that in addition to her Parkinson's disease is causing her back muscles to seize up. I will note that the patient is able to walk on her tiptoes as well as her heels. She has not had loss of bowel or bladder control. In addition the patient was given 1 mg of Dilaudid here in the emergency department along with Tylenol Benadryl Compazine. Repeat examination revealed much improvement the patient's symptoms. I did get case management involved in anticipation of the patient needing a rehabilitation hospital stay. I also did discuss the case with the patient's on-call neurosurgeon. We reviewed the patient's films together as well as her laboratory work and felt that the patient was safe enough to be discharged home. The patient was accepted at [facility] for rehabilitation. Both patient and were in agreement with the treatment plan. Medication Reconcilliation Current Medication List: was personally reviewed by me Blood Pressure Screening Patient's blood pressure: Normal blood pressure Blood pressure disposition: Did not require urgent referral Consults Time Called: 1420 Consulting Physician: Dr. Narvaez Returned Call: 1429 Discussed the patient's case with Dr. Narvaez - customer contact representative for Dr. Farley, Neurology Impression Primary Impression: Back pain Scribe Attestation The scribe's documentation has been prepared under my direction and personally reviewed by me in its entirety. I confirm that the note above accurately reflects all work, treatment, procedures, and medical decision making performed by me. Departure Information Dispostion Transfer Acute Care Facility Referrals Jo Ann Smith D.O. (PCP) Patient Instructions My [facility] Problem Qualifiers Primary Impression: Back pain Back pain location: low back pain Chronicity: acute Back pain laterality: midline Sciatica presence: without sciatica Qualified Codes: M54.5 - Low back pain
[2017-11-01] MEDS ORDERED: CALC500C3 PO (12:42)
[2017-11-01] MEDS ORDERED: OXYC-609 PO (12:42)
[2017-11-01] MEDS ORDERED: RBX500 PO (12:42)
[2017-11-01] MEDS ORDERED: CHOL100010 PO (12:42)
[2017-11-01] MEDS ORDERED: OPTIRAY 320 IV PRN (13:00)
[2017-11-01 13:22] LABS: BASO % 0.3 %; BASO ABS # 0.02 K/uL (0-0.2); EOS % 2.4 %; EOS ABS # 0.18 K/uL (0-0.5); HEMATOCRIT 37.2 % (37-47); HEMOGLOBIN 12.8 g/dL (12.0-16.0); IG# 0.03 K/uL (0.00-0.02); LYMPH % 18.4 %; MEAN CELL VOLUME 92.1 fL (80-100); MEAN CORPUSCULAR HEMOGLOBIN 31.7 pg (25-34); MEAN CORPUSCULAR HGB CONC 34.4 g/dl (32-36); MEAN PLATELET VOLUME 9.5 fL (7.4-10.4); MONO ABS # 0.46 K/uL (0.11-0.59); NEUT % 72.5 %; NEUT ABS # 5.53 K/uL (1.4-6.5); PLATELET COUNT 455 K/uL (130-400); RED CELL DISTRIBUTION WIDTH CV 12.6 % (11.5-14.5); RED CELL DISTRIBUTION WIDTH SD 42.9 fL (36.4-46.3); WHITE BLOOD COUNT 7.62 K/uL (4.8-10.8)
[2017-11-01 13:27] LABS: ISTAT CREATININE 0.8 mg/dl (0.6-1.3); ISTAT IONIZED CALCIUM 1.15 mmol/l (1.12-1.32); ISTAT POTASSIUM 3.7 mEq/L (3.3-5.0)
[2017-11-01 13:34] LABS: ALBUMIN 3.9 gm/dl (3.4-5.0); CALCIUM 9.8 mg/dl (8.5-10.1); CREATININE 0.82 mg/dl (0.60-1.20)
[2017-11-01 13:37] LABS: POTASSIUM 3.4 mmol/L (3.5-5.1); TOTAL PROTEIN 8.7 gm/dl (6.4-8.2)
[2017-11-01] MEDS ORDERED: POTASSIUM CHLORIDE 20 MEQ/15 ML UDC PO STA (13:39)
[2017-11-01] MEDS ORDERED: CYCLOBENZAPRINE HCL 5 MG TAB PO STA (13:49)
--- NOTE | 2017-11-01 13:53 | DIAGNOSTIC IMAGING REPORT ---
HEAD WITHOUT CONTRAST (CT) CLINICAL HISTORY: 67 years-old Female presenting with Pt c/o headache. TECHNIQUE: Multidetector CT imaging of the head was performed without the use of intravenous contrast. IV contrast: None. A dose lowering technique was used consistent with the principles of ALARA (as low as reasonably achievable). COMPARISON: None. CT DOSE (mGy.cm): The estimated cumulative dose is 2571.[address] lumbar spine. FINDINGS: Gis Engineer topogram: Unremarkable. Crowding of the foramen magnum could suggest tonsillar ectopia. Ventricles and sulci otherwise normal in size. Brain parenchyma normal in appearance with preserved kaba-white differentiation. No mass effect or midline shift. No hemorrhage or acute territorial infarct. No extra-axial fluid collection. Paranasal sinuses and mastoid air cells clear. Calvarium intact. IMPRESSION: 1. No acute intracranial abnormality. 2. Tonsillar ectopia suggested. Electronically signed by: Skip Sheehan M.D. 11/01/2017 1:52 PM Dictated Date/Time: 11/01/2017 1:50 PM
--- NOTE | 2017-11-01 14:01 | DIAGNOSTIC IMAGING REPORT ---
LUMBAR SPINE COMBO CLINICAL HISTORY: 67 years-old Female presenting with Pt c/o surgery L2-L5. TECHNIQUE: Multidetector CT of the lumbar spine was performed before and after the administration of intravenous contrast. IV contrast: 118 mL of Optiray 320. A dose lowering technique was used consistent with the principles of ALARA (as low as reasonably achievable). COMPARISON: None. CT DOSE (mGy.cm): The estimated cumulative dose is 2571.47 mGy.cm. FINDINGS: Cut [employer] Station Operator topogram: Bilateral posterior transpedicular screw fixation of L4-S1 with interbody spacer at L4-5. Slightly exaggerated lumbar lordosis. As mentioned, postsurgical changes of L4-S1 posterior lumbar fusion with transpedicular screw and gisele fixation. Associated laminectomy defects noted at L4 and L5. Bone graft material evident in the operative bed. 5 mm of grade 1 anterolisthesis of L4 on L5. Otherwise alignment is maintained. Vertebral body heights maintained. Interbody spacer evident at L4-5. Remainder of disc spaces preserved. Mild anterior osteophytosis noted at several levels. Allowing for limited evaluation of the soft tissues on CT, no evidence of a disc bulge. No gross evidence of spinal canal narrowing. No osseous neural foraminal narrowing though there is suggestion of mild neural foraminal narrowing on the right at L3-4 secondary to soft tissues. No evidence of a fluid collection in operative bed. Infiltration of the operative bed compatible with granulation tissue. Evaluation of the spinal canal is limited given streak artifact arising from the hardware. IMPRESSION: 1. Postsurgical changes of L4-S1 posterior lumbar fusion with L4-5 laminectomies. 2. Grade 1 anterolisthesis of L4 on L5. 3. Neural foraminal narrowing suggested on the right at L3-4 secondary to soft tissues, which could be better evaluated on MR. No gross evidence of spinal now narrowing. Electronically signed by: Skip Sheehan M.D. 11/01/2017 2:00 PM Dictated Date/Time: 11/01/2017 1:54 PM
[2017-11-01] MEDS ORDERED: PROCHLORPERAZINE 5 MG/ML 2 ML VIAL IV STA (14:14)
[2017-11-01] MEDS ORDERED: DiphenhydrAMINE HCL 50 MG/ML VIAL IV STA (14:14)
[2017-11-01] MEDS ORDERED: ACETAMINOPHEN 500 MG TAB PO STA (14:14)
[2017-11-01 16:52] VITALS: BP 143/74; PULSE 80; O2SAT 99
== END 2017-11-01 16:50 | disposition short-term general hospital (02) ==
LOC: C.EDB 12:09 → C.EDC 16:50
DX: M54.5 Low back pain (principal); G20 Parkinson's disease; R51 Headache; K59.00 Constipation, unspecified; Z79.899 Other long term (current) drug therapy; Z98.890 Other specified postprocedural states; Z85.3 Personal history of malignant neoplasm of breast; Z88.8 Allergy status to other drugs, medicaments and biological substances; Z91.048 Other nonmedicinal substance allergy status

== ENCOUNTER 2020-05-22 06:46 | Observation (INO) ==
--- NOTE | 2020-04-26 09:32 | PAT Medication Instructions ---
Medication Instructions Date of Service April 26, 2020 Home Medications Medication Instructions Recorded gabapentin 400 mg capsule 400 mg PO QAM #30 cap 05/24/19 diclofenac sodium 75 mg 75 mg PO BID #180 tab 02/02/20 tablet,delayed release calcium carbonate 500 mg calcium (1,250 mg) chewable tablet 500 mg PO BID carbidopa 25 mg-levodopa 100 mg tablet 1 tab PO QID cholecalciferol (vitamin D3) 25 mcg (1,000 unit) capsule 1,000 units PO QAM rasagiline 0.5 mg tablet 0.5 mg PO QAM carbidopa 50 mg-levodopa 200 mg-entacapone 200 mg tablet 1 tab PO HS sennosides 8.6 mg tablet 8.6 mg PO TID acetaminophen 500 mg tablet 500 mg PO Q6H PRN amantadine HCl 100 mg tablet 100 mg PO BID docusate sodium 100 mg capsule 100 mg PO BID gabapentin 400 mg capsule 400 mg PO QAM gabapentin 600 mg tablet 600 mg PO BID diclofenac sodium 75 mg tablet,delayed release 75 mg PO BID Bifidobacterium infantis [Align] 4 mg PO QAM anastrozole 1 mg PO QAM lactobacillus combination no.4 [Probiotic] 3,000 mmu cells PO DAILY polyethylene glycol 3350 [Miralax] 17 g PO QPM trazodone 25 mg PO HS ASK your surgeon for instructions diclofenac sodium 75 mg tablet,delayed release 75 mg PO BID ASK your prescriber and surgeon anastrozole 1 mg PO QAM STOP taking 2 weeks before surgery rasagiline 0.5 mg tablet 0.5 mg PO QAM (please check if this is okay with prescribing doctor) DO NOT take the morning of surgery calcium carbonate 500 mg calcium (1,250 mg) chewable tablet 500 mg PO BID cholecalciferol (vitamin D3) 25 mcg (1,000 unit) capsule 1,000 units PO QAM sennosides 8.6 mg tablet 8.6 mg PO TID docusate sodium 100 mg capsule 100 mg PO BID Bifidobacterium infantis [Align] 4 mg PO QAM lactobacillus combination no.4 [Probiotic] 3,000 mmu cells PO DAILY Take morning of surgery With a small sip of water, OTHERWISE NOTHING TO EAT OR DRINK AFTER MIDNIGHT: carbidopa 25 mg-levodopa 100 mg tablet 1 tab PO QID acetaminophen 500 mg tablet 500 mg PO Q6H PRN (okay to take up to 4 hours prior to surgery if needed) amantadine HCl 100 mg tablet 100 mg PO BID gabapentin 600 mg tablet 600 mg PO BID Take evening before surgery calcium carbonate 500 mg calcium (1,250 mg) chewable tablet 500 mg PO BID carbidopa 25 mg-levodopa 100 mg tablet 1 tab PO QID carbidopa 50 mg-levodopa 200 mg-entacapone 200 mg tablet 1 tab PO HS sennosides 8.6 mg tablet 8.6 mg PO TID acetaminophen 500 mg tablet 500 mg PO Q6H PRN (if needed) amantadine HCl 100 mg tablet 100 mg PO BID docusate sodium 100 mg capsule 100 mg PO BID gabapentin 600 mg tablet 600 mg PO BID polyethylene glycol 3350 [Miralax] 17 g PO QPM trazodone 25 mg PO HS Other Notes If you have any questions please call us at [phone] or [phone] or [phone] or [phone]
--- NOTE | 2020-04-30 09:11 | Anesthesiology Consultation ---
Date of Service April 30, 2020 Assessment & Plan (1) Encounter for pre-operative examination: Chart Review Chart Review: Acceptable Risk for Surgery (pending preop Covid testing results ) and Patient seen in Pre Admission Testing Per PAT appt on 04/30/20, pt resides in [facility]. No recent travel. Wears mask, uses good hand hygiene and socially distances. Educated patient to follow up with surgeon's office regarding Covid testing. Educated on importance of self quarantining, social distancing and wearing mask in public both for the patient and household contacts. Last seen by neurology 03/19/20= seen for follow up on unilateral Parkinson's disease- which is now really bilateral. Right side affected more than left side. Has chronic dyskinetic movements of right arm. Neuro aware of ongoing right knee issues. Pt's exam looked good. Third dose of Amanatine added to regiment. Follow up in three months. Teaching & Discussion Pre-Anesthesia Teaching/Discussion Notes: Instructed NPO after midnight before surgery,except medications with 15 cc of water. Medication instructions provided according to the PAT guidelines. History Surgery Operation Date: 05/22/20 12:30 Proposed Procedures p Right Total Knee Arthroplasty - Andre Whitehead MD Height/Weight Height: 5 ft 7 in Weight: 79.5 kg Allergies Allergy/AdvReac Type Severity Reaction Status Date / Time adhesive Allergy Unknown Rash Verified 04/23/20 09:46 Gold Salts Allergy Unknown Rash Verified 04/23/20 09:46 nickel Allergy Unknown Discolors Verified 04/23/20 09:46 skin Medications Home Medications Medication Instructions Recorded Confirmed Last Taken calcium carbonate 500 mg calcium 500 mg PO BID tab 04/21/18 04/23/20 Unknown (1,250 mg) chewable tablet carbidopa 25 mg-levodopa 100 mg 1 tab PO QID 04/21/18 04/23/20 Unknown tablet cholecalciferol (vitamin D3) 25 1,000 units PO QAM 04/21/18 04/23/20 Unknown mcg (1,000 unit) capsule rasagiline 0.5 mg tablet 0.5 mg PO QAM 04/21/18 04/23/20 Unknown carbidopa 50 mg-levodopa 200 1 tab PO HS tab 09/21/18 04/23/20 Unknown mg-entacapone 200 mg tablet sennosides 8.6 mg tablet 8.6 mg PO TID 09/21/18 04/23/20 Unknown acetaminophen 500 mg tablet 500 mg PO Q6H PRN 05/24/19 04/23/20 Unknown amantadine HCl 100 mg tablet 100 mg PO BID tab 05/24/19 04/23/20 Unknown docusate sodium 100 mg capsule 100 mg PO BID cap 05/24/19 04/23/20 Unknown gabapentin 400 mg capsule 400 mg PO QAM #30 cap 05/24/19 04/23/20 Unknown gabapentin 600 mg tablet 600 mg PO BID tab 09/28/19 04/23/20 Unknown diclofenac sodium 75 mg 75 mg PO BID #180 tab 02/02/20 04/23/20 Unknown tablet,delayed release Bifidobacterium infantis [Align] 4 mg PO QAM 04/23/20 04/23/20 Unknown anastrozole 1 mg PO QAM 04/23/20 04/23/20 Unknown lactobacillus combination no.4 3,000 mmu cells PO DAILY 04/23/20 04/23/20 Unknown [Probiotic] polyethylene glycol 3350 [Miralax] 17 g PO QPM 04/23/20 04/23/20 Unknown trazodone 25 mg PO HS 04/23/20 04/23/20 Unknown Past Medical History Medical History Cardiac murmur " A BABY"- HAS SINCE RESOLVED History of breast cancer Dx'ed 2016- s/p lumpectomy and XRT - no current issues Parkinsons disease DX'D 1999-F/U DR ALLRED- R SIDE AFFECTED >L SIDE SOB (shortness of breath) on exertion "OUT OF SHAPE"-DOES NOT EXERCISE PER PT Urinary incontinence MILD Exercise / Class Metabolic Activity III < 4 Walking/Shop/Light housework (one flight of stairs- no chest pain- does have SOB) Past Family History Family History Mother Family hx of colon cancer Past Surgical History Surgical History H/O breast biopsy LEFT History of breast surgery Re-incision surgery to remove additional margins after lumpectomy History of colonoscopy History of lumbar fusion L4-S1 10/[address] Martel Status post left breast lumpectomy Past Anesthesia History No Hx of Anesthesia Complications (with exception to combativeness post op ) and No Family Hx of Anesthesia Complications History of PONV No Hx of PONV and No Hx of Motion Sickness Social History Smoking Status: Never smoker Do You Dip or Chew Tobacco: No Hx Alcohol Use: Yes Alcohol type: wine alcohol intake frequency: other Alcohol Intake Frequency Comment: 1 X A WEEK Hx Substance Use: Yes substance use type: other Substance Use Type Other:: HEMP SPRAY TOPICALLY R KNEE Q 2 DAYS Review of Systems Patient denies chest pain, shortness of breath at rest,, reflux, cough, wheezing, palpitations. No hx of seizures, stroke, RI, apnea/snoring. No hx of blood clots or blood transfusions Physical Exam Vital Signs VITALS BP 123/67 P 76 TEMP 97.4 SP02 98% RESP 16 Constitutional no acute distress ENMT Mouth: no TMJ clicking Thyromental Distance: > or= 3.5 Finger Breadths Mallampati Class: II Top left molar permanent implant Neck + limited neck extension (minimal ) Respiratory normal respiratory effort; no respiratory distress Auscultation: lungs clear to auscultation bilaterally; no wheezes Cardiovascular Rate/Rhythm: regular rate and regular rhythm Heart Sounds: no murmur Vessels: no carotid bruit Musculoskeletal Spine: + pain with cervical ROM (mild- pain to lower back with neck extension ) Neurologic moves all extremities Dyskinetic movements of arms noted during exam. Right UE droops lower to right side of body compared to left side Psychiatric Orientation: alert Testing Laboratory Results 04/30/20 09:44 04/30/20 09:44 PT 11.1 Seconds (9.0-12.0) 04/30/20 09:44 INR 1.1 (0.9-1.1) 04/30/20 09:44 APTT 25.7 Seconds (21.0-31.0) 04/30/20 09:44 Blood Type A Negative 04/30/20 09:44 Antibody Screen NEGATIVE 04/30/20 09:44 Electrocardiogram Date: 04/30/20 SR with PACs with aberrant conduction at [address] and T wave abnormality Chest X-Ray Date: 04/30/20 Findings: + NAD
--- NOTE | 2020-04-30 10:14 | XRay Report ---
XR chest Pre-admission PA/Lat HISTORY: Preop. COMPARISON: None. FINDINGS: The lungs are clear. Cardiac silhouette is normal in size. No pleural effusions. No pneumot horax. IMPRESSION: No acute process. ACT 112: Negative or not required by law. Electronically signed by: Andrea Salmeron M.D. 04/30/2020 10:13 AM
[2020-04-30 10:30] LABS: Basophils # (auto) 0.02 K/uL (0-0.2); Basophils % (auto) 0.4 %; Eosinophils # (auto) 0.15 K/uL (0-0.5); Eosinophils % (auto) 2.9 %; Hematocrit (blood only) 41.2 % (37-47); Hemoglobin 13.8 g/dL (12.0-16.0); Immature Granulocytes # (auto) 0.01 K/uL (0.00-0.02); Immature Granulocytes % (auto) 0.2 %; Lymphocytes # (auto) 1.47 K/uL (1.2-3.4); Lymphocytes % (auto) 28.4 %; Mean Corpuscular Hemoglobin 31.6 pg (25-34); Mean Corpuscular Hgb Conc 33.5 g/dL (32-36); Mean Corpuscular Volume 94.3 fL (80-100); Mean Platelet Volume 10.7 fL (7.4-10.4); Monocytes # (auto) 0.42 K/uL (0.11-0.59); Monocytes % (auto) 8.1 %; Neutrophils # (auto) 3.11 K/uL (1.4-6.5); Platelet Count 298 K/uL (130-400); RDW Coefficient of Variation 13.2 % (11.5-14.5); RDW Standard Deviation 45.8 fL (36.4-46.3); Red Blood Count 4.37 M/uL (4.2-5.4); White Blood Count 5.18 K/uL (4.8-10.8)
[2020-04-30 10:42] LABS: BUN Creatinine Ratio 32.6 (10-20); Calcium 9.2 mg/dl (8.5-10.1); Creatinine Clr Calc Pharmacy 69.4 ml/min; Est GFR (African American) 83.4; Est GFR (Non-African American) 71.9; Potassium 4.5 mmol/L (3.5-5.1)
[2020-04-30 10:54] LABS: INR 1.1 (0.9-1.1); Partial Thromboplastin Ratio 0.9; Partial Thromboplastin Time 25.7 Seconds (21.0-31.0); Prothrombin Time 11.1 Seconds (9.0-12.0)
--- NOTE | 2020-05-01 15:25 | Electrocardiogram Report ---
Test Reason : Blood Pressure : / mmHG Vent. Rate : 090 BPM Atrial Rate : 077 BPM P-R Int : 160 ms QRS Dur : 082 ms QT Int : 368 ms P-R-T Axes : 059 030 081 degrees QTc Int : 450 ms Sinus rhythm with Premature atrial complexes with Aberrant conduction Nonspecific ST and T wave abnormality Abnormal ECG No previous ECGs available Confirmed by Ernesto Interiano ([id number]) on 05/01/2020 3:25:05 PM Referred By: Andre Whitehead Confirmed By:Ernesto Interiano
--- NOTE | 2020-05-15 22:55 | History and Physical Report ---
DATE OF ADMISSION: 05/22/2020 CHIEF COMPLAINT: Right knee pain, discomfort and instability. HISTORY OF PRESENT ILLNESS: The patient is a 69-year-old female with a long history of underlying Parkinson's disease affecting her right side more so than the left, who presents for surgical treatment of her right knee. I have been treating her over the years with injections and bracing, which initially worked pretty well. This has become less successful over time. The last shot did not help her much at all. Her knee continues to give out on her regularly. She is worried about falling. Has a collapse, it is regularly. She does not feel like she can keep going on like this. She has pain with every step. She has instability also which is a major problem for her. Her Parkinson's disease has been pretty stable and she would like to have her knee fixed. PAST MEDICAL HISTORY: Significant for 1. Parkinson's disease affecting the right side more so than the left. 2. Low back pain/sciatica. 3. Breast cancer, status post mastectomy without recurrence. PAST SURGICAL HISTORY: Include: 1. Spinal fusion. 2. Breast cancer, mastectomy. ALLERGIES: ADHESIVES, STITCHES NICKEL AND GOLD. CURRENT MEDICINES: Include: 1. Amantadine 100 mg 3 times a day. 2. Rasagiline 0.5 mg once a day. 3. Carbidopa/levodopa 5 times a day. 4. Trazodone as needed. 5. Docusate sodium 100 mg a day. 6. Polyethylene glycol. 7. Vitamin D. 8. Gabapentin 3 times a day. 9. Anastrozole 1 mg a day for breast cancer. 10. Calcium. 11. Diclofenac. 12. Sennosides. SOCIAL HISTORY: A 69-year-old female. She is . Does not smoke. FAMILY HISTORY: Noncontributory. REVIEW OF SYSTEMS: Negative for diabetes. Denies any chest pain or shortness of breath. No history of DVT or PE. She does have this underlying Parkinson's disease, followed at [facility] by Dr. Weber. PHYSICAL EXAMINATION: GENERAL: Shows a pleasant, middle-aged female. Looks to be in good health and younger than her age. HEENT: Benign. NECK: Supple, no lymphadenopathy. LUNGS: Clear to auscultation. HEART: Has regular rate and rhythm. ABDOMEN: Soft, nontender, nondistended. EXTREMITIES: Grossly neurovascularly intact except as follows: Examination of the right knee reveals the patient walks with a markedly antalgic gait. Her knee kind of donald in when she weight bears, it goes into further valgus. She has a small knee effusion. Moderate soft tissue envelope. Range of motion about 10 degrees short of full extension, about 120 degrees of flexion. There is no gross instability to testing or laxity. No pain with hip motion. X-RAYS: X-rays of the right knee reviewed. She has advanced right knee lateral compartment DJD. She has complete loss of her lateral joint space. She has gapping of the medial side suggestive of medial laxity. Diffuse osteopenia. ASSESSMENT: A 69-year-old white female with a long history of Parkinson's disease with advanced right knee lateral compartment DJD. It has gotten to the point where it is not only just painful, but markedly unstable and she would like to have her knee fixed as she cannot really do any type of activities. PLAN: We talked about treatment options. We tried to put off surgery as long as possible, but she would like to have this fixed. We will take her to the operating room and do a right total knee replacement. She apparently has a NICKEL ALLERGY, so will use a Moore and Nephew knee, we might need to use a constrained implant. We will likely put a tibial stem in. The risks and benefits of this procedure were explained to the patient including but not limited to DVT, PE, , infection, neurological injury, vascular injury, persistent pain, instability, dislocation, need for blood transfusion, etc. The patient understands and desires to proceed. Informed consent was obtained. As far as discharge plans, she is hoping to go to physical therapy, rehabilitation center versus a correction center for recovery. We will likely use Xarelto for DVT prophylaxis. I believe she has some issues with aspirin. I will see her back in 2 weeks postop.
[~2020-05-22 06:46] MED LIST changes: +ACETAMINOPHEN 500 MG TAB PO SCH; -AMAN100T PO; -AZL/5 PO; +BUPIVACAINE 0.5 % 5 MG/1 ML PF 10ML VIAL ONE; +BUPIVACAINE LIPOSOME/PF 266 MG, BUPIVACAINE/EPINEPHRINE 50 ML, SODIUM CHLORIDE 0.9% 30 ... INFIL SCH; +BUPIVACAINE/EPINEPHRINE 0.25% 1:200,000 30 ML VIAL ONE; -CALC500C70 PO; -CARB25TA12 PO; -CARB25TA16 PO; -CLON1TAB3 PO; -DOCU-94 PO; +FAMOTIDINE 20 MG TAB PO SCH; -FMR25 PO; +GABAPENTIN 300 MG CAP PO SCH; -IBUP-103 PO; +LR 15ML/HR IV SCH; +LR 60ML/HR IV SCH; +TRANEXAMIC ACID 1,000 MG **IV Intra-op IV SCH; +ceFAZolin 2000MG 2,000 MG/15 ML SYR IV SCH
--- NOTE | 2020-05-22 06:52 | History & Physical Bridge Note ---
Date of Service May 22, 2020 History & Physical Bridge Note I have examined the patient, reviewed the History & Physical and in the interval since the performance of the History & Physical I have noted the following changes of clinical significance: no changes noted
[2020-05-22] MEDS ORDERED: MIDAZOLAM HCL 1 MG/ML 2ML VIAL ONE (07:48)
[2020-05-22] MEDS ORDERED: fentaNYL citrate 100 MCG/2 ML VIAL ONE (07:48)
[2020-05-22] MEDS ORDERED: ATROPINE SULFATE 0.1 MG/ML 10ML SYR IV PRN (08:53)
[2020-05-22] MEDS ORDERED: HYDROmorphone INJ 2 MG/ML SYR/VIAL IV PRN (08:53)
[2020-05-22] MEDS ORDERED: ePHEDrine sulfate 50 MG/ML AMP IV PRN (08:53)
[2020-05-22] MEDS ORDERED: fentaNYL citrate 100 MCG/2 ML VIAL IV PRN (08:53)
[2020-05-22] MEDS ORDERED: PROMETHAZINE HCL 12.5 MG in SODIUM CHLORIDE 0.9% 50 ML IV PRN (08:53)
[2020-05-22] MEDS ORDERED: ONDANSETRON INJ 2 MG/ML 2 ML VIAL IV PRN ×2 (08:53→12:33)
[2020-05-22] MEDS ORDERED: BACITRACIN INJ 50,000 UNIT VIAL ONE (09:10)
[2020-05-22] MEDS ORDERED: SODIUM CHLORIDE 0.9% PF 50 ML VIAL ONE (09:10)
[2020-05-22] MEDS ORDERED: BUPIVACAINE LIPOSOME 1.3% 266 MG/20 ML VIAL ONE (09:10)
[2020-05-22] MEDS ORDERED: BUPIVACAINE/EPINEPHRINE 0.25% 1:200,000 30 ML VIAL ONE (09:10)
[2020-05-22] MEDS ORDERED: PROPOFOL IV EMULSION 10 MG/ML 20 ML VIAL IV ONE ×2 (09:14→11:18)
[2020-05-22] MEDS ORDERED: LIDOCAINE HCL 2% 2 ML VIAL/AMP(20MG/ML) INFIL ONE (09:14)
--- NOTE | 2020-05-22 11:24 | Post Operative Brief Note ---
PG Immediate Post Op with CF Date of Surgery May 22, 2020 Pre & Post Diagnosis Operation Date: 05/22/20 08:50 Pre-Op Diagnosis: Right Knee Degenerative Joint Disease Post-Op Diagnosis: Right Knee Degenerative Joint Disease I identified the patient and participated in the time-out.: Yes Procedure Operation Date: 05/22/20 08:50 Actual Procedures p Right Total Knee Arthroplasty(Right) - Andre Whitehead MD Surgeon Andre Whitehead MD Shrimp Header Jean Claude, PAC Estimated Blood Loss 50 Findings Consistent with Post-Op Diagnosis Fluids 1300 cc Specimens Specimen Description: A. Bone and tissue from Right knee Drains Rebolledo Catheter (16 Fr rebolledo catheter inserted by VINCENT Felipe without difficulty. Draining clear yellow urine. Anesthesia to monitor urine output. ) Anesthesia Type Spinal MAC Complications none Disposition Accompanied Patient To Recovery: No Disposition: Recovery Room
--- NOTE | 2020-05-22 11:43 | XRay Report ---
RIGHT KNEE 2 VIEWS History: Right total knee arthroplasty. Degenerative arthritis. Postop. FINDINGS: The patient is status post a right total knee arthroplasty. The hardware is intact. No frac ture or dislocation. Skin damir are in place. IMPRESSION: Right total knee arthroplasty. No evidence for hardware complication. ACT 112: Negative or not required by law. Electronically signed by: Andrea Salmeron M.D. 05/22/2020 11:42 AM
--- NOTE | 2020-05-22 12:07 | Operative Report ---
Post Operative Report Pre & Post Diagnosis Operation Date: 05/22/20 08:50 Pre-Op Diagnosis: Right Knee Degenerative Joint Disease Post-Op Diagnosis: Right Knee Degenerative Joint Disease I identified the patient and participated in the time-out.: Yes Procedure Operation Date: 05/22/20 08:50 Actual Procedures p Right Total Knee Arthroplasty(Right) - Andre Whitehead MD Surgeon Andre Whitehead MD [employer] Director Jean Claude, NICOLA Estimated Blood Loss 50 Findings Consistent with Post-Op Diagnosis Operative findings to the limit weightbearing it is done. revealed advanced right knee DJD with extensive grade 4 [id number] disease of the lateral compartment as well as the patellofemoral compartment. Her medial compartment was fairly well-preserved. She did have a significant valgus deformity to her knee. She had osteoporosis on the medial compartment of the knee. She had a slight flexion contracture. She had extensive wear of the posterior lateral femoral condyle. Fluids 1300 cc. Specimens Right knee sent for pathology. Drains None. Anesthesia Type Spinal MAC Complications none Disposition Accompanied Patient To Recovery: No Disposition: Recovery Room Indications Patient is a 69-year-old female with some underlying Parkinson's disease who developed a progressive increased pain discomfort and deformity to her right leg. We treated her over the years with conservative care which became less successful over time. As she was having a lot of pain with her knee and a lot o f instability as well. She was certainly at risk for falling. X-rays show advanced DJD. She elected proceed with surgical treatment. The patient does have an apparent nickel allergy so therefore used a Moore & Nephew zirconium total knee arthroplasty. Description of Procedure Operative implants consist of: 1. Moore & Nephew size 6 right journey 2 zirconium posterior stabilized femoral component. 2. Moore & Nephew size 4 right tibial tray with 14 mm x 100 mm stem extension. 3. 12 mm posterior stabilized polyethylene plus insert. 4. 32 x 9 all poly-patella. Patient was taken to the operating identified and placed on the operating table supine position protectors were appropriately padded. IV antibiotics were 5 by the anesthesia team. A spinal anesthetic and abductor canal block had been provided in the holding area. Ibrahim catheter was placed in sterile fashion. Right thigh turn was then placed in the right lower extremities and prepped and draped in usual sterile fashion. The right leg was elevated exsanguinated with use of an Esmarch and turns placed at 300 mmHg. An anterior approach to the right knee was then performed to longitudinal incision centered over the patella. Sharp dissection was got through subcutaneous tissue down to the extensor mechanism. A medial parapatellar arthrotomy incision was made. Some subperiosteal dissection was carried out medially. I tried to minimize this dissection and stripping the MCL as it was already fairly lax. The fat pad was resected from each patella tendon. Lateral patellofemoral ligament was released. The patella was subluxated laterally and the knee was flexed. The osteophytes were taken off the distal femur. The ACL and PCL were then released in the distal femur and the tibia subluxated anteriorly. The external tibial alignment jig was then placed in the interface the tibia and adjusted 8 mm medially. Proximal tibial cut was made remove about 4 mm of bone from the medial side. This resected about 2 from the most efficient aspect the lateral side. I then sized the tibia to a size 4. The tibial tray was pinned in place and the proximal tibia was initially prepared for a standard for tibial tray. Then the dentist eventually did ream up to a size [address] a 14 mm stem. I placed a cemented stem as I was planning on placing a constrained into her insert due to her marked instability preoperatively. The tibial tray was left in place and attention then drawn the femur. The distal femur returned with a sharp drill bit intramedullary canal was suction. A right 5 degree valgus cutting guide was placed. Distal femoral cutting block was pinned in place. The distal femoral cutting block was adjusted to take an additional 2 mm of bone off distal femur. The distal femur was then cut and took just a small amount of bone from the most efficient lateral side. The femur was then sized to a size 6. We did downsize this sligh tly. The AP cutting block was then pinned and placed parallel to the epicondylar axis which was 6 degrees of external rotation. The anterior cord, anterior chamfer, posterior cut, posterior chamfer followed by anterior chamfer cuts were made. I then flexed the knee. The osteophytes were taken off posteriorly. The remnants of the medial lateral menisci were excised. The femoral component was placed. The femur was then reamed for the box and the trochlear component was placed. I then trialed the knee and the 12 mm insert fit most appropriately. I initially just tried the standard posterior stabilized insert and it fit pretty well but with her marked instability and Parkinson's disease I really wanted to maximize her stability so we did place the PS plus insert. Attention drawn the patella. The patella was cleaned of all soft tissues. Patella thickness measured 21 mm in thickness was cut down to 14. Was sized to a size 32 patella. Locals were drilled for 32 patella. The lateral osteophyte is moved. Patella button was placed. The knee was taken through range of motion the patella tracked nicely with no thumbs test. Attention drawn to place the permanent components. All trial components were removed. A bone plug was placed in the distal femur limit blood loss. I did try the permanent tibial component appeared to fit well within the proximal tibia. A double batch Palacos G cement was then mixed. A Moore & Nephew size 6 right posterior stabilized journey zirconium femoral component was then placed followed by a size 4 right tibial tray with a 14 x 100 mm stem extension, 12 mm posterior stabilized polyethylene plus implant followed by a 32 x 9 all poly-patella. I placed this cemented stem in order to maximize her stability. The knee was brought out in full extension until cement hardened. Upon placing the tibial component it did shift a little bit medial. This left for just a slight bit of overhang medially and I did not feel this was anything that would provide any clinical significance and only lead to a just a slight abnormal appearance on x-ray. I elected to leave this as placed. A final cement check was then performed. The pericapsular tissues were injected with total 100 cc of combination of 20 cc of Exparel, 30 cc normal saline, 50 cc of quarter percent Marcaine with epinephrine. Patient did receive 1 g tranexamic acid. The tourniquet was then let down for final tourniquet time 69 minutes. Hemostasis assured use electrocautery. Wounds once again irrigated. The extensor max was then closed with combination 1 PDS suture #1 Vicryl suture in [id number] fashion. The extensor mechanism checked found to be intact with subcutaneous this and then closed with 2 Dexon suture in a buried interrupted fashion skin was closed skin damir. Legs then cleaned dried and sterile dressed with Xeroform, 4 x 4's, cast padding, Wisam bandage were applied. Patient then transferred to the recovery room in stable condition. Patient tolerated procedure well and there were no complications. Anton Silverio, my physician event sales assistant, was present for the entire procedure. His assistance was essential and required for appropriate patient positioning, prepping and draping, surgical exposure, performing the technical details the operation, placement the implants, closure of the wound, and placement of the sterile dressing. I attest to the content of the Intraoperative Record and any orders documented therein. Any exceptions are noted below.
[2020-05-22] MEDS ORDERED: CARBIDOPA/LEVODOPA 25/100MG TAB PO STA (12:15)
--- NOTE | 2020-05-22 12:17 | Anesthesiology Progress Note ---
Date of Service May 22, 2020 Anesthesia Post Procedure Vital Signs Vital Signs: Temp Pulse Pulse Resp BP BP Pulse Ox 05/22/20 12:10 95 H 20 126/70 92 05/22/20 12:00 36.4 C L 93 H 17 116/59 L 93 05/22/20 11:50 93 H 24 130/57 L 92 05/22/20 11:40 92 H 19 107/54 L 92 05/22/20 11:30 36.3 C L 102 H 17 102/60 92 05/22/20 08:07 95 H 18 150/95 H 100 05/22/20 07:43 36.5 C 80 18 148/72 H 96 Transfer of Care Handoff Completed per policy Notes Mental Status: alert / awake / arousable and participated in evaluation Patient Amnestic to Procedure: Yes Nausea / Vomiting: adequately controlled Pain: adequately controlled Airway Patency, RR, SpO2: stable & adequate BP & HR: stable & adequate Hydration State: stable & adequate Anesthetic Complications: no major complications apparent and Pt Satisfied with anesthetic care
[2020-05-22] MEDS ORDERED: ALUMINUM/MAGNESIUM SUSP 30 ML UDC PO PRN (12:33)
[2020-05-22] MEDS ORDERED: MAGNESIUM HYDROXIDE SUSP 30 ML UDC PO PRN (12:33)
[2020-05-22] MEDS ORDERED: HYDROmorphone INJ 0.5 MG/0.5 ML SYR IV PRN (12:33)
[2020-05-22] MEDS ORDERED: oxyCODONE HCL IR 5 MG TAB (IMMEDIATE RELEASE) PO PRN (12:33)
[2020-05-22] MEDS ORDERED: NALOXONE HCL 0.4 MG/1 ML VIAL/CARP IV PRN (12:33)
[2020-05-22] MEDS ORDERED: bisacodyL 10 MG SUPP PR PRN (12:33)
[2020-05-22] MEDS ORDERED: METOCLOPRAMIDE HCL INJ 5 MG/ML 2 ML VIAL IV PRN (12:33)
[2020-05-22] MEDS: SODIUM CHLORIDE 0.9% 1000ML 1,000 ML IV SCH ×2 (12:41→22:16)
[2020-05-22] MEDS: SENNA 8.6 MG TAB PO SCH ×2 (14:04→20:35)
[2020-05-22] MEDS: KETOROLAC TROMETHAMINE 15 MG/ML VIAL IV SCH ×2 (14:06→20:34)
[2020-05-22] MEDS: GABAPENTIN 600 MG TAB PO SCH ×2 (14:32→22:16)
[2020-05-22] MEDS: Scopolamine CHECK PATCH PLACEMENT SCH (16:28)
[2020-05-22] MEDS: FERROUS GLUCONATE 324 MG TAB PO SCH (16:32)
[2020-05-22] MEDS: ASCORBIC ACID 500 MG TAB PO SCH (16:32)
[2020-05-22] MEDS: ceFAZolin 1000MG 1,000 MG/7.5 ML SYR IV SCH (16:32)
[2020-05-22] MEDS: CARBIDOPA/LEVODOPA 25/100MG TAB PO SCH ×2 (16:33→20:35)
[2020-05-22] MEDS ORDERED: TRANEXAMIC ACID / 0.7% NACL 1,000 MG/100 ML BAG IV SCH (17:30)
[2020-05-22] MEDS: CALCIUM 600MG + VIT D 400 IU TAB PO SCH (20:34)
[2020-05-22] MEDS: ASPIRIN 81 MG ECTAB PO SCH (20:34)
[2020-05-22] MEDS: DOCUSATE SODIUM 100 MG CAP PO SCH (20:35)
[2020-05-22] MEDS: AMANTADINE HCL 100 MG CAPSULE PO SCH (20:35)
[2020-05-22] MEDS: ENTACAPONE 200 MG TAB PO SCH (20:36)
[2020-05-22] MEDS: TAPENTADOL HCL ER 50 MG TABCR PO SCH (20:36)
[2020-05-22] MEDS: traZODone HCL 50 MG TAB PO SCH (20:36)
[2020-05-22] MEDS: CARBIDOPA/LEVODOPA 50/200MG EXT REL TAB PO SCH (20:36)
[2020-05-22] MEDS: POLYETHYLENE (MIRALAX) 17 GM PACK PO SCH (20:37)
[2020-05-22] MEDS ORDERED: ASPIRIN 81 MG ECTAB PO SCH (21:00)
[2020-05-22] MEDS ORDERED: SENNA 8.6 MG TAB PO SCH (21:00)
[2020-05-22] MEDS ORDERED: DOCUSATE SODIUM 100 MG CAP PO SCH (21:00)
[2020-05-23] MEDS: ceFAZolin 1000MG 1,000 MG/7.5 ML SYR IV SCH (00:10)
[2020-05-23] MEDS: Scopolamine CHECK PATCH PLACEMENT SCH ×4 (00:10→22:56)
[2020-05-23] MEDS: KETOROLAC TROMETHAMINE 15 MG/ML VIAL IV SCH ×4 (02:22→21:07)
[2020-05-23 07:18] LABS: Hematocrit (blood only) 34.8 % (37-47); Hemoglobin 11.5 g/dL (12.0-16.0); Mean Corpuscular Hemoglobin 31.3 pg (25-34); Mean Corpuscular Volume 94.8 fL (80-100); Platelet Count 185 K/uL (130-400); RDW Coefficient of Variation 12.9 % (11.5-14.5); Red Blood Count 3.67 M/uL (4.2-5.4); White Blood Count 5.97 K/uL (4.8-10.8)
[2020-05-23 07:48] LABS: BUN Creatinine Ratio 17.6 (10-20); Creatinine Clr Calc Pharmacy 82.2 ml/min; Est GFR (African American) 102.9; Est GFR (Non-African American) 88.8; Potassium 3.9 mmol/L (3.5-5.1)
[2020-05-23] MEDS ORDERED: NON-FORMULARY MEDICATION (Lactobacillus Combination No.4 [Probiotic] 3,000 mmu cells) PO SCH (09:00)
[2020-05-23] MEDS: ANASTROZOLE 1 MG TAB PO SCH (09:13)
[2020-05-23] MEDS: LACTOBACILLUS ACIDOPHILUS (FLORANEX) TAB PO SCH (09:13)
[2020-05-23] MEDS: GABAPENTIN 400 MG CAP PO SCH (09:13)
[2020-05-23] MEDS: AMANTADINE HCL 100 MG CAPSULE PO SCH ×2 (09:13→21:14)
[2020-05-23] MEDS: CALCIUM 600MG + VIT D 400 IU TAB PO SCH ×2 (09:13→21:08)
[2020-05-23] MEDS: DOCUSATE SODIUM 100 MG CAP PO SCH ×2 (09:14→21:10)
[2020-05-23] MEDS: SENNA 8.6 MG TAB PO SCH ×3 (09:14→21:10)
[2020-05-23] MEDS: CHOLECALCIFEROL 1,000 UNITS 25 MCG TAB PO SCH (09:14)
[2020-05-23] MEDS: CARBIDOPA/LEVODOPA 25/100MG TAB PO SCH ×4 (09:14→21:11)
[2020-05-23] MEDS: ASCORBIC ACID 500 MG TAB PO SCH ×2 (09:14→18:17)
[2020-05-23] MEDS: FERROUS GLUCONATE 324 MG TAB PO SCH ×2 (09:14→18:18)
[2020-05-23] MEDS: ASPIRIN 81 MG ECTAB PO SCH ×2 (09:15→21:09)
[2020-05-23] MEDS: MULTIVITAMIN TAB PO SCH (09:16)
[2020-05-23] MEDS: TAPENTADOL HCL ER 50 MG TABCR PO SCH ×2 (09:24→21:19)
--- NOTE | 2020-05-23 12:27 | Progress Notes ---
DATE: 05/23/2020 SUBJECTIVE: A 69-year-old white female with underlying Parkinson's disease, now postop day 1 from a right knee replacement. She is doing pretty well. Has some moderate amount of pain, but doing okay with pain pills. No chest pain or shortness of breath. Not feeling dizzy or lightheaded. OBJECTIVE: VITAL SIGNS: Temperature is 36.8. Vital signs stable. GENERAL: Shows a pleasant, middle-aged female. She was sitting up in her bed, reading a book when I visited her this morning. LUNGS: Clear to auscultation. HEART: Has a regular rate and rhythm. ABDOMEN: Soft, nontender, nondistended. EXTREMITIES: Grossly neurovascularly intact except as follows: Examination of the right leg reveals the leg to be well aligned. She can dorsiflex her foot and her toes appropriately. She cannot quite do a straight leg raise. She is neurologically intact otherwise. LABORATORY DATA: Hemoglobin 11.5. Hematocrit 34.8. Electrolytes are stable. ASSESSMENT: A 69-year-old white female with underlying Parkinson disease, postoperative day 1 from a right knee replacement, doing pretty well. She is having some pain, but nothing out of the ordinary. Pain medications are doing okay. She is neurologically intact. PLAN: 1. DVT prophylaxis including thigh-high TEDs, SCDs, and aspirin twice a day. 2. PT/OT. She can weightbear as tolerated. Right total knee protocol. 3. Pain control, doing okay with current pain regimen. 4. Disposition: She is hoping to be discharged to rehab or shelter facility for a short stay. I certainly think with her Parkinson disease, this could benefit her.
[2020-05-23] MEDS: GABAPENTIN 600 MG TAB PO SCH ×2 (14:33→22:55)
[2020-05-23] MEDS: RASAGILINE PO SCH (18:17)
[2020-05-23] MEDS: traZODone HCL 50 MG TAB PO SCH (21:09)
[2020-05-23] MEDS: CARBIDOPA/LEVODOPA 50/200MG EXT REL TAB PO SCH (21:09)
[2020-05-23] MEDS: ENTACAPONE 200 MG TAB PO SCH (21:10)
[2020-05-23] MEDS: POLYETHYLENE (MIRALAX) 17 GM PACK PO SCH (21:14)
[2020-05-24] MEDS: KETOROLAC TROMETHAMINE 15 MG/ML VIAL IV SCH ×2 (01:44→09:07)
[2020-05-24 07:13] VITALS: BP 110/68; PULSE 84; TEMP 98.1; O2SAT 91
--- NOTE | 2020-05-24 08:55 | Progress Notes ---
DATE: 05/24/2020 SUBJECTIVE: A 69-year-old white female postop day 2 from a right knee replacement. She is doing pretty well. A moderate amount of pain, but doing okay with pain pills. No chest pain or shortness of breath. Not feeling dizzy or lightheaded. OBJECTIVE: VITAL SIGNS: Temperature 36.7. Vital signs stable. GENERAL: Shows a pleasant, middle-aged female. She is lying in bed, looks pretty comfortable. EXTREMITIES: Examination of the right leg reveals the leg to be well aligned. Dressing is clean, dry and intact. Minimal drainage. Calf is soft and supple. She is neurologically intact. ASSESSMENT: A 69-year-old white female postop day 2 from a right knee replacement, doing pretty well. She has got underlying Parkinson's disease which is going to make her rehabilitation a little bit more difficult, but seems to be doing okay. PLAN: 1. DVT prophylaxis including thigh-high TEDs, SCDs, and aspirin twice a day. 2. PT/OT. Weight bear as tolerated. Right total knee protocol. 3. Pain control, doing well with current pain regimen. 4. Disposition: Plan to discharge to rehab if approved and accepted.
[2020-05-24] MEDS: CHOLECALCIFEROL 1,000 UNITS 25 MCG TAB PO SCH (09:08)
[2020-05-24] MEDS: ASCORBIC ACID 500 MG TAB PO SCH (09:08)
[2020-05-24] MEDS: MULTIVITAMIN TAB PO SCH (09:08)
[2020-05-24] MEDS: ANASTROZOLE 1 MG TAB PO SCH (09:09)
[2020-05-24] MEDS: Scopolamine CHECK PATCH PLACEMENT SCH (09:09)
[2020-05-24] MEDS: FERROUS GLUCONATE 324 MG TAB PO SCH (09:09)
[2020-05-24] MEDS: GABAPENTIN 400 MG CAP PO SCH (09:09)
[2020-05-24] MEDS: CARBIDOPA/LEVODOPA 25/100MG TAB PO SCH ×2 (09:10→13:34)
[2020-05-24] MEDS: ASPIRIN 81 MG ECTAB PO SCH (09:10)
[2020-05-24] MEDS: TAPENTADOL HCL ER 50 MG TABCR PO SCH (09:10)
[2020-05-24] MEDS: AMANTADINE HCL 100 MG CAPSULE PO SCH (09:11)
[2020-05-24] MEDS: RASAGILINE PO SCH (09:12)
[2020-05-24] MEDS: SENNA 8.6 MG TAB PO SCH ×2 (09:12→13:33)
[2020-05-24] MEDS: CALCIUM 600MG + VIT D 400 IU TAB PO SCH (09:13)
[2020-05-24] MEDS: LACTOBACILLUS ACIDOPHILUS (FLORANEX) TAB PO SCH (09:13)
[2020-05-24] MEDS: DOCUSATE SODIUM 100 MG CAP PO SCH (09:13)
[2020-05-24] MEDS: ACETAMINOPHEN 500 MG TAB PO SCH ×2 (09:14→13:33)
[2020-05-24] MEDS ORDERED: CeleBREX 200 MG CAP PO SCH (21:00)
[2020-05-25] MEDS ORDERED: ADVANCED PROBIOTIC 1250 MG CAPSULE PO SCH (09:00)
== END 2020-05-24 14:06 ==
LOC: ASU 06:46 → 3E 06:46

== ENCOUNTER 2020-09-24 11:25 | Observation (INO) ==
--- NOTE | 2020-09-07 12:35 | Anesthesiology Consultation ---
Date of Service September 07, 2020 Assessment & Plan (1) Encounter for pre-operative examination: Chart Review Chart Review: Acceptable Risk for Surgery (pending preop Covid testing and new surgery date that allows patient to hold Azilect for two weeks ) and Patient NOT seen in Pre Admission Testing Pt initially scheduled for surgery 09/14/20- but Azilect was not held two weeks prior to surgery. As a results- surgery will need to be rescheduled- Azilect will need to be held two weeks prior to surgery and patient will need to check with neuro to ensure they approve. ((Per nursing assessment on 09/07/20, patient denies any recent travel. No known Covid positive contacts or Covid related symptoms. No known Covid infection in the past 90 days. Pt will need preop Covid testing done 6-7 days prior to new surgery date = will await results. Right TKA 05/22/20= Done under [facility] with MAC at L3-4 with 1 attempt. No anesthesia issues noted per anesthesia record. Last seen by neurology 06/20/2020 = patient seen for follow-up on longstanding hemiparkinsonism predominantly involving left arm with some emergence of some low-grade parkinsonian symptoms on the right and a lot of dyskinesias over the years. Having visual issues. "At this point Parkinson's is doing very well and I am going to make no changes in her combination of Sinemet Azilect and amantadine. She is going to keep an eye on the visual phenomenon and at some point we may end up cutting back a little on both the Azilect and then the amantadine to see if either of these agents may be the driving force here.. Unfortunately is may simply be part of her Parkinson's disease and not medication driven and even if it were medication related I am not sure we would changing as her control has been so good on the current combination and for unclear reasons seems even better following knee surgery" History Surgery Operation Date: 09/14/20 09:05 Proposed Procedures p Right Total Knee Revision - Andre Whitehead MD Height/Weight Height: 5 ft 7 in Weight: 72.575 kg Allergies Allergy/AdvReac Type Severity Reaction Status Date / Time adhesive Allergy Mild Rash Verified 09/07/20 11:30 Gold Salts Allergy Mild Rash Verified 09/07/20 11:30 nickel Allergy Mild Discolors Verified 09/07/20 11:30 skin Medications Home Medications Medication Instructions Recorded Confirmed Last Taken calcium carbonate 500 mg calcium 500 mg PO BID tab 04/21/18 09/07/20 05/20/20 (1,250 mg) chewable tablet carbidopa 25 mg-levodopa 100 mg 1 tab PO QID 04/21/18 09/07/20 05/22/20 06:00 tablet cholecalciferol (vitamin D3) 25 1,000 units PO QAM 04/21/18 09/07/20 05/21/20 09:00 mcg (1,000 unit) capsule rasagiline 0.5 mg tablet 0.5 mg PO QAM 04/21/18 09/07/20 05/08/20 carbidopa 50 mg-levodopa 200 1 tab PO HS tab 09/21/18 09/07/20 05/21/20 23:00 mg-entacapone 200 mg tablet sennosides 8.6 mg tablet 8.6 mg PO TID 09/21/18 09/07/20 05/21/20 21:00 acetaminophen 500 mg tablet 500 mg PO Q6H PRN 05/24/19 09/07/20 05/21/20 23:00 amantadine HCl 100 mg tablet 100 mg PO BID tab 05/24/19 09/07/20 05/22/20 06:00 docusate sodium 100 mg capsule 100 mg PO BID cap 05/24/19 09/07/20 05/21/20 21:00 gabapentin 400 mg capsule 400 mg PO QAM #30 cap 05/24/19 09/07/20 05/21/20 09:00 gabapentin 600 mg tablet 600 mg PO BID tab 09/28/19 09/07/20 05/22/20 06:00 anastrozole 1 mg PO QAM 04/23/20 09/07/20 05/19/20 polyethylene glycol 3350 [Miralax] 17 g PO QPM 04/23/20 09/07/20 05/18/20 trazodone 50 mg PO HS 04/23/20 09/07/20 05/21/20 23:00 tramadol 50 mg PO QAM 09/07/20 09/07/20 Unknown Past Medical History Medical History Cardiac murmur " A BABY"- HAS SINCE RESOLVED History of breast cancer Dx'ed 2017- s/p lumpectomy and XRT - no current issues Parkinsons disease DX'D 1999-F/U DR ALLRED- R SIDE AFFECTED >L SIDE Right knee dislocation Sciatica SOB (shortness of breath) on exertion "OUT OF SHAPE"-DOES NOT EXERCISE PER PT Urinary incontinence MILD Past Family History Family History Mother Family hx of colon cancer Past Surgical History Surgical History H/O breast biopsy LEFT History of breast surgery Re-incision surgery to remove additional margins after lumpectomy History of colonoscopy History of lumbar fusion L4-S1 10/[address] Martel History of total knee replacement RT Status post left breast lumpectomy Social History Smoking Status: Never smoker Hx Alcohol Use: Yes Alcohol type: wine alcohol intake frequency: a few times a month Hx Substance Use: No substance use type: other Substance Use Type Other:: HEMP SPRAY TOPICALLY R KNEE Q 2 DAYS Testing Laboratory Results Blood Type A Negative 09/07/20 10:37 Antibody Screen NEGATIVE 09/07/20 10:37 Laboratory Tests 09/07/20 09/07/20 09/07/20 10:37 10:37 10:37 WBC 5.63 Hgb 14.4 Hct 43.2 Plt Count 423 H PT 10.9 INR 1.0 Sodium 139 Potassium 3.9 Chloride 108 H Carbon Dioxide 28 BUN 24 H Creatinine 0.96 Glucose 96 Electrocardiogram Date: 04/30/20 SR with PACs with aberrant conduction at [address] and T wave abnormality Chest X-Ray Date: 04/30/20 Findings: + NAD
[~2020-09-24 11:25] MED LIST changes: -BUPIVACAINE/EPINEPHRINE 0.25% 1:200,000 30 ML VIAL ONE; +LIDOCAINE HCL 2% 2 ML VIAL/AMP(20MG/ML) INFIL ONE; -LR 15ML/HR IV SCH; +LR 500ML BOLUS, THEN 15ML/HR IV SCH; +METOCLOPRAMIDE HCL 10 MG TABLET PO SCH; +MIDAZOLAM HCL 1 MG/ML 2ML VIAL ONE; +ONDANSETRON INJ 2 MG/ML 2 ML VIAL ONE; +PROPOFOL IV EMULSION 10 MG/ML 20 ML VIAL IV ONE; +fentaNYL citrate 100 MCG/2 ML VIAL ONE
[2020-09-24] MEDS ORDERED: EPINEPHrine INJ 1 MG/ML AMP ONE (12:48)
[2020-09-24] MEDS ORDERED: BUPIVACAINE 0.25% 30 ML VIAL ONE (12:48)
[2020-09-24] MEDS ORDERED: BUPIVACAINE LIPOSOME 1.3% 266 MG/20 ML VIAL ONE (12:48)
[2020-09-24] MEDS ORDERED: SODIUM CHLORIDE 0.9% PF 50 ML VIAL ONE (12:48)
[2020-09-24] MEDS ORDERED: BACITRACIN INJ 50,000 UNIT VIAL ONE (12:48)
[2020-09-24] MEDS ORDERED: ATROPINE SULFATE 0.1 MG/ML 10ML SYR IV PRN (12:53)
[2020-09-24] MEDS ORDERED: ePHEDrine sulfate 50 MG/ML AMP IV PRN (12:53)
[2020-09-24] MEDS ORDERED: ONDANSETRON INJ 2 MG/ML 2 ML VIAL IV PRN ×2 (12:53→17:44)
[2020-09-24] MEDS ORDERED: fentaNYL citrate 100 MCG/2 ML VIAL IV PRN (12:53)
--- NOTE | 2020-09-24 13:10 | History & Physical Bridge Note ---
Date of Service September 24, 2020 History & Physical Bridge Note I have examined the patient, reviewed the History & Physical and in the interval since the performance of the History & Physical I have noted the following changes of clinical significance: no changes noted
[2020-09-24] MEDS ORDERED: PROPOFOL IV EMULSION 10 MG/ML 20 ML VIAL IV ONE ×2 (13:55→14:43)
[2020-09-24] MEDS ORDERED: LIDOCAINE HCL 2% 2 ML VIAL/AMP(20MG/ML) INFIL ONE (13:55)
--- NOTE | 2020-09-24 14:56 | Post Operative Brief Note ---
PG Immediate Post Op with CF Date of Surgery September 24, 2020 Pre & Post Diagnosis Operation Date: 09/24/20 13:30 Pre-Op Diagnosis: Right Total Knee Dislocation Post-Op Diagnosis: Right Total Knee Dislocation I identified the patient and participated in the time-out.: Yes Procedure Operation Date: 09/24/20 13:30 Actual Procedures p Right Total Knee Poly Revision(Right) - Andre Whitehead MD Surgeon Andre Whitehead MD Aluminum Boat Inspector VINCENT Silverio Estimated Blood Loss 50 Findings Consistent with Post-Op Diagnosis Fluids 1000 cc Specimens Specimen Description: no specimens per surgeon Drains Ibrahim Catheter (placed by Johnny Silverio, clear yellow urine for return) Anesthesia Type Spinal MAC Complications none Disposition Accompanied Patient To Recovery: No Disposition: Recovery Room
--- NOTE | 2020-09-24 15:11 | Operative Report ---
Post Operative Report Pre & Post Diagnosis Operation Date: 09/24/20 13:30 Pre-Op Diagnosis: Right Total Knee replacement recurrent dislocation Post-Op Diagnosis: Right Total Knee replacement recurrent dislocation I identified the patient and participated in the time-out.: Yes Procedure Operation Date: 09/24/20 13:30 Actual Procedures p Right Total Knee Poly Revision(Right) - Andre Whitehead MD Surgeon Andre Whitehead MD Lacquerer VINCENT Silverio Estimated Blood Loss 50 Findings Consistent with Post-Op Diagnosis Operative findings are posteriorly dislocated total knee arthroplasty. The femoral and tibial components were well fixed. There is a moderate to mild a serosanguineous effusion. No clinical signs of infection. Fluids 1000 cc. Specimens None. Drains None. Anesthesia Type Spinal MAC Disposition Accompanied Patient To Recovery: No Disposition: Recovery Room Indications Patient is a 70-year-old female with pretty significant Parkinson's disease who has had a progressive a history of right knee pain discomfort and instability. We treated conservatively for several years but she became more unstable over time and was falling. She underwent right knee replacement about 4 months ago. About 7weeks post surgery she developed a dislocation with doing some exercising bending and twisting her knee. We did do a closed reduction and she did well well for several weeks. She is come back with persistent instability knee without a for further injury. X-ray showed recurrent dislocation. The patient is indicated for surgical revision. There is no clinical signs of infection. Description of Procedure Operative implants consist of: 1 [employer] journey 2 size 18 posterior stabilized polyethylene plus insert. The patient was taken the operating identified and placed on the operating table supine position protectors were properly padded. IV antibiotics tried by anesthesia team. A spinal anesthetic and abductor canal block had provided holding area. Ibrahim catheter was placed in sterile fashion a right thigh turn was then placed in the right lower extremities and prepped draped in usual sterile fashion. The right leg was elevated exsanguinated with use of an Esmarch and tourniquet placed at 300 mmHg. An anterior posterior right knee was then performed through a longitudinal incision using the previous incision. Sharp dissection was got through subcutaneous tissue down the extensor mechanism. A medial parapatellar arthrotomy incision was made. I did do some dissection with subperiosteally medially. Suprapatellar pouch and medial lateral glide synovectomies were performed. There was not much in the way synovitis. I subluxated the patella laterally. The knee was clearly dislocated and I could relocated to easier in extension than flexion. We exposed the knee and then remove the poly-. I then trialed the knee with several different implants. The knee seemed a little bit looser in extension than flexion. I initially tried the 12 insert and it seemed to loosen extension more than flexion. She did have some mild to moderate medial laxity with his implant in in extension only. I then trialed the the 15. It provided pretty good stability but I was still concerned that only a 3 mm increase would not fix her problem. Therefore, we elected to place the 18 poly- . The knee was extremely stable in extension and flexion. Was little bit tighter in flexion but I did not feel like I could compromise and go down any further thickness on the polyconvincingly increased greater stability. Therefore, we elect to place his implant. Knee was prepared and cleaned. I cleaned off the tibial tray meticulously and then placed an 18 mm posterior stabilized polyethylene plus insert. This was placed and reduced. The knee was fully stable. With this implant the patella did tend to tilted laterally some. We did irrigated extensively then injected locally with 100 cc of combination of 20 cc of Exparel rel, 30 cc normal saline, 50 cc of quarter percent Marcaine with epinephrine. Patient did receive 1 g tranexamic acid. The tourniquet was then let down for a total tourniquet time of 35 minutes. Hemostasis assured use electrocautery.. The patella tracked better but still tended to a tilt and sublux a little bit laterally. I did a modified lateral release to try to maximize this. I then repaired the extensor mechanism with a single suture and the patella tracked much improved. I elected not to do any further released. The extensor mechanism is then closed with a combination 1 PDS suture #1 Vicryl suture in a [id number] fashion. Extensor mechanism checked found to be intact the subcutaneous tissue then closed with 2 Dexon suture in a buried interrupted fashion skin was closed skin damir. Leg was then cleaned and dried and a sterile dressing both Xeroform, 4 x 4's, sterile cast padding, Wisam bandage were applied. I did place the patient in knee immobilizer until she was awake alert and started therapy. The patient was then transferred to the recovery room in stable condition. The there were no complications. I attest to the content of the Intraoperative Record and any orders documented therein. Any exceptions are noted below.
--- NOTE | 2020-09-24 15:22 | XRay Report ---
XR knee RT 1 or 2V routine HISTORY: 70 years-old Female Surgical Post Op right knee total joint arthroplasty COMPARISON: Knee radiographs 05/22/2020 TECHNIQUE: 2 views of the right knee FINDINGS: Right knee total joint arthroplasty and patella resurfacing. Expected postsurgical soft tissue swelli ng and deep tissue air with anterior skin damir. No acute fracture, dislocation or unexpected opaqu e foreign body. IMPRESSION: Right knee total joint arthroplasty and patella resurfacing with expected postoperative c hanges. ACT 112: Negative or not required by law. The above report was generated using voice recognition software. It may contain grammatical, syntax o r spelling errors. Electronically signed by: Goyo Lua M.D. 09/24/2020 3:20 PM
--- NOTE | 2020-09-24 16:45 | Anesthesiology Progress Note ---
Date of Service September 24, 2020 Anesthesia Post Procedure Vital Signs Vital Signs: Temp Pulse Pulse Resp BP Pulse Ox 09/24/20 16:30 36.5 C 87 20 125/72 99 09/24/20 16:20 85 20 119/75 99 09/24/20 16:10 83 20 112/60 99 09/24/20 16:00 67 14 121/59 L 98 09/24/20 15:50 92 H 20 108/62 99 09/24/20 15:40 82 15 116/63 99 09/24/20 15:30 73 15 124/59 L 98 09/24/20 15:20 80 15 121/69 100 09/24/20 15:10 81 16 124/53 L 100 09/24/20 15:04 36.7 C 86 16 100/63 98 09/24/20 12:28 36.5 C 76 20 124/76 100 Pain Intensity Left Leg: Pain Intensity: 5 Transfer of Care Handoff Completed per policy Notes Mental Status: alert / awake / arousable Patient Amnestic to Procedure: Yes Nausea / Vomiting: adequately controlled Pain: adequately controlled Airway Patency, RR, SpO2: stable & adequate BP & HR: stable & adequate Hydration State: stable & adequate Neuraxial Anesthesia: was administered and sensory block is resolving Anesthetic Complications: no major complications apparent and Pt Satisfied with anesthetic care
[2020-09-24] MEDS ORDERED: NALOXONE HCL 0.4 MG/1 ML VIAL/CARP IV PRN (17:44)
[2020-09-24] MEDS ORDERED: SODIUM CHLORIDE 0.9% 1000ML 1,000 ML IV SCH (17:44)
[2020-09-24] MEDS ORDERED: traMADol HCL 50 MG TABLET PO PRN (17:44)
[2020-09-24] MEDS ORDERED: ALUMINUM/MAGNESIUM SUSP 30 ML UDC PO PRN (17:44)
[2020-09-24] MEDS ORDERED: HYDROmorphone INJ 0.5 MG/0.5 ML SYR IV PRN (17:44)
[2020-09-24] MEDS ORDERED: MAGNESIUM HYDROXIDE SUSP 30 ML UDC PO PRN (17:44)
[2020-09-24] MEDS ORDERED: bisacodyL 10 MG SUPP PR PRN (17:44)
[2020-09-24] MEDS ORDERED: METOCLOPRAMIDE HCL INJ 5 MG/ML 2 ML VIAL IV PRN (17:44)
[2020-09-24] MEDS: ASCORBIC ACID 500 MG TAB PO SCH (18:39)
[2020-09-24] MEDS: CARBIDOPA/LEVODOPA 25/100MG TAB PO SCH ×2 (18:39→20:44)
[2020-09-24] MEDS: KETOROLAC TROMETHAMINE 15 MG/ML VIAL IV SCH (18:40)
[2020-09-24] MEDS: POLYETHYLENE (MIRALAX) 17 GM PACK PO SCH (20:43)
[2020-09-24] MEDS: DOCUSATE SODIUM 100 MG CAP PO SCH (20:43)
[2020-09-24] MEDS: CARBIDOPA/LEVODOPA 50/200MG EXT REL TAB PO SCH (20:44)
[2020-09-24] MEDS: ENTACAPONE 200 MG TAB PO SCH (20:44)
[2020-09-24] MEDS: ASPIRIN 81 MG ECTAB PO SCH (20:45)
[2020-09-24] MEDS: traZODone HCL 50 MG TAB PO SCH (20:45)
[2020-09-24] MEDS: CALCIUM CARBONATE 1250MG TAB PO SCH (20:45)
[2020-09-24] MEDS: AMANTADINE HCL 100 MG CAPSULE PO SCH (20:45)
[2020-09-24] MEDS: SENNA 8.6 MG TAB PO SCH (20:46)
[2020-09-24] MEDS: ceFAZolin 1000MG 1,000 MG/7.5 ML SYR IV SCH (20:49)
[2020-09-24] MEDS ORDERED: DOCUSATE SODIUM 100 MG CAP PO SCH (21:00)
[2020-09-24] MEDS ORDERED: SENNA 8.6 MG TAB PO SCH (21:00)
[2020-09-24] MEDS: ACETAMINOPHEN 500 MG TAB PO SCH (22:46)
[2020-09-24] MEDS: GABAPENTIN 600 MG TAB PO SCH (22:46)
[2020-09-25] MEDS: KETOROLAC TROMETHAMINE 15 MG/ML VIAL IV SCH ×5 (00:11→23:39)
[2020-09-25] MEDS: RASAGILINE: ORDER AWAITING ACTION SCH ×4 (00:16→22:39)
[2020-09-25] MEDS: ACETAMINOPHEN 500 MG TAB PO SCH ×3 (05:31→21:49)
[2020-09-25] MEDS: ceFAZolin 1000MG 1,000 MG/7.5 ML SYR IV SCH (05:32)
[2020-09-25 07:12] LABS: Hematocrit (blood only) 38.2 % (37-47); Hemoglobin 13.2 g/dL (12.0-16.0); Mean Corpuscular Hemoglobin 31.9 pg (25-34); Mean Corpuscular Hgb Conc 34.6 g/dL (32-36); Mean Corpuscular Volume 92.3 fL (80-100); Mean Platelet Volume 10.2 fL (7.4-10.4); Platelet Count 274 K/uL (130-400); RDW Coefficient of Variation 13.6 % (11.5-14.5); RDW Standard Deviation 45.8 fL (36.4-46.3); Red Blood Count 4.14 M/uL (4.2-5.4); White Blood Count 5.48 K/uL (4.8-10.8)
--- NOTE | 2020-09-25 07:27 | Anesthesiology Progress Note ---
Date of Service September 25, 2020 Anesthesia Post Procedure Vital Signs Vital Signs: Temp Pulse Pulse Resp BP Pulse Ox 09/25/20 03:26 36.5 C 85 16 152/97 H 95 09/24/20 21:51 36.5 C 77 16 164/97 H 98 09/24/20 19:45 36.4 C L 92 H 16 168/85 H 92 09/24/20 18:45 36.5 C 79 16 172/95 H 96 09/24/20 18:17 36.7 C 82 17 155/85 H 100 09/24/20 17:45 36.6 C 87 16 133/71 99 09/24/20 17:20 36.5 C 89 17 125/72 100 09/24/20 17:10 36.5 C 89 16 132/85 100 09/24/20 17:00 36.5 C 85 16 130/70 100 09/24/20 16:50 36.5 C 87 20 132/66 100 09/24/20 16:40 87 20 135/67 100 09/24/20 16:30 87 20 125/72 99 09/24/20 16:20 85 20 119/75 99 09/24/20 16:10 83 20 112/60 99 09/24/20 16:00 67 14 121/59 L 98 09/24/20 15:50 92 H 20 108/62 99 09/24/20 15:40 82 15 116/63 99 09/24/20 15:30 73 15 124/59 L 98 09/24/20 15:20 80 15 121/69 100 09/24/20 15:10 81 16 124/53 L 100 09/24/20 15:04 36.7 C 86 16 100/63 98 09/24/20 12:28 36.5 C 76 20 124/76 100 Notes Mental Status: alert / awake / arousable and participated in evaluation Patient Amnestic to Procedure: Yes Nausea / Vomiting: adequately controlled Pain: adequately controlled Airway Patency, RR, SpO2: stable & adequate BP & HR: stable & adequate Hydration State: stable & adequate Neuraxial Anesthesia: sensory block resolved Anesthetic Complications: no major complications apparent
[2020-09-25 07:46] LABS: BUN Creatinine Ratio 18.2 (10-20); Calcium 9.2 mg/dl (8.5-10.1); Est GFR (Non-African American) 86.3; Potassium 3.9 mmol/L (3.5-5.1)
[2020-09-25] MEDS ORDERED: dexAMETHasone 4 MG TAB PO SCH (08:00)
[2020-09-25] MEDS: CHOLECALCIFEROL 1,000 UNITS 25 MCG TAB PO SCH (08:31)
[2020-09-25] MEDS: ASCORBIC ACID 500 MG TAB PO SCH ×2 (08:31→17:24)
[2020-09-25] MEDS: CALCIUM CARBONATE 1250MG TAB PO SCH ×2 (08:31→20:12)
[2020-09-25] MEDS: AMANTADINE HCL 100 MG CAPSULE PO SCH ×2 (08:31→20:13)
[2020-09-25] MEDS: ANASTROZOLE 1 MG TAB PO SCH (08:31)
[2020-09-25] MEDS: MULTIVITAMIN TAB PO SCH (08:31)
[2020-09-25] MEDS: GABAPENTIN 400 MG CAP PO SCH (08:32)
[2020-09-25] MEDS: SENNA 8.6 MG TAB PO SCH ×3 (08:32→20:12)
[2020-09-25] MEDS: CARBIDOPA/LEVODOPA 25/100MG TAB PO SCH ×4 (08:32→20:13)
[2020-09-25] MEDS: DOCUSATE SODIUM 100 MG CAP PO SCH ×2 (08:32→20:11)
[2020-09-25] MEDS: ASPIRIN 81 MG ECTAB PO SCH ×2 (08:33→20:12)
[2020-09-25 15:18] VITALS: O2SAT 95
[2020-09-25] MEDS: GABAPENTIN 600 MG TAB PO SCH ×2 (15:35→21:49)
--- NOTE | 2020-09-25 19:42 | Progress Notes ---
DATE: 09/25/2020 SUBJECTIVE: A 70-year-old female postop day 1 from a right revision of polyethylene component of the total knee for instability. She is doing pretty well. She has been in a knee immobilizer and it is really hindering her. She would like to get back wearing a different brace. Her pain is controlled with tramadol. No fevers. No chest pain or shortness of breath. OBJECTIVE: VITAL SIGNS: Temperature 36.7. Vital signs are stable. GENERAL: Shows a pleasant, middle-aged female. She is lying in bed, looks pretty comfortable. LUNGS: Clear to auscultation. HEART: Has a regular rate and rhythm. ABDOMEN: Soft, nontender, nondistended. EXTREMITIES: Grossly neurovascularly intact except as follows: Examination of the right leg reveals the leg to be well aligned. Dressing is clean, dry and intact. She can dorsiflex and plantarflex her foot appropriately. She can do a pretty good straight leg raise with some effort. She is neurologically intact. LABORATORY DATA: Hemoglobin 13.2. Hematocrit 38.2. Electrolytes are stable. ASSESSMENT: A 70-year-old female postoperative day 1 of right total knee polyethylene revision for instability. She is doing well. Pain is controlled. She is neurologically intact. PLAN: 1. DVT prophylaxis including thigh-high TEDs, SCDs, and aspirin twice a day for the next month. 2. PT/OT. Weight bear as tolerated. Right total knee protocol. We are going to discontinue the use of a knee immobilizer. 3. Pain control, doing well with current pain regimen. 4. Disposition: She would like to do a little bit more therapy and likely discharge tomorrow. We will change her bandage tomorrow, discharge to home with likely some home health.
[2020-09-25] MEDS: traZODone HCL 50 MG TAB PO SCH (20:12)
[2020-09-25] MEDS: ENTACAPONE 200 MG TAB PO SCH (20:12)
[2020-09-25] MEDS: CARBIDOPA/LEVODOPA 50/200MG EXT REL TAB PO SCH (20:12)
[2020-09-25] MEDS: POLYETHYLENE (MIRALAX) 17 GM PACK PO SCH (20:13)
[2020-09-26] MEDS: ACETAMINOPHEN 500 MG TAB PO SCH ×2 (05:26→13:21)
[2020-09-26] MEDS: KETOROLAC TROMETHAMINE 15 MG/ML VIAL IV SCH ×2 (05:26→13:20)
[2020-09-26 07:00] VITALS: BP 148/82; PULSE 76; TEMP 98.2
[2020-09-26] MEDS: CHOLECALCIFEROL 1,000 UNITS 25 MCG TAB PO SCH (08:27)
[2020-09-26] MEDS: RASAGILINE: ORDER AWAITING ACTION SCH (08:27)
[2020-09-26] MEDS: ASCORBIC ACID 500 MG TAB PO SCH (08:28)
[2020-09-26] MEDS: AMANTADINE HCL 100 MG CAPSULE PO SCH (08:28)
[2020-09-26] MEDS: CARBIDOPA/LEVODOPA 25/100MG TAB PO SCH ×2 (08:28→13:20)
[2020-09-26] MEDS: GABAPENTIN 400 MG CAP PO SCH (08:28)
[2020-09-26] MEDS: ANASTROZOLE 1 MG TAB PO SCH (08:28)
[2020-09-26] MEDS: MULTIVITAMIN TAB PO SCH (08:28)
[2020-09-26] MEDS: CALCIUM CARBONATE 1250MG TAB PO SCH (08:29)
[2020-09-26] MEDS: SENNA 8.6 MG TAB PO SCH (08:29)
[2020-09-26] MEDS: DOCUSATE SODIUM 100 MG CAP PO SCH (08:29)
[2020-09-26] MEDS: ASPIRIN 81 MG ECTAB PO SCH (08:29)
--- NOTE | 2020-09-26 10:02 | Progress Notes ---
DATE: 09/26/2020 SUBJECTIVE: A 70-year-old female postop day 2 from a right polyethylene revision/exchange for instability. She is doing pretty well. Pain is controlled taking tramadol. No chest pain or shortness of breath. OBJECTIVE: VITAL SIGNS: Temperature 36.8. Vital signs are stable. GENERAL: Shows a pleasant, middle-aged female. She is sitting in her bedside chair, just finished up some therapy. EXTREMITIES: Examination of the right leg reveals the dressing to be clean, dry and intact. Leg is well aligned. She can do a straight leg raise. She is neurologically intact. ASSESSMENT: A 70-year-old female postoperative day 2 from a right revision of polyethylene for instability. Her knee is located. Knee alignment looks good. Pain is controlled. She is neurologically intact. PLAN: 1. DVT prophylaxis including thigh-high TEDs, SCDs, and aspirin twice a day. 2. PT/OT. She can weightbear as tolerated. We are going to discontinue the use of a knee immobilizer as her knee feels quite stable and her muscles are working well. 3. Pain control, doing pretty well with current pain regimen. 4. Disposition: Plan to discharge to home later today.
--- NOTE | 2020-09-27 06:33 | Discharge Summary ---
Date of Service September 27, 2020 Discharge Data Consultations 09/24/20 17:44 Consult Case Management - Discharge Planning Routine Procedures Performed Operation Date: 09/24/20 13:30 Actual Procedures p Right Total Knee Poly Revision(Right) - Andre Whitehead MD Hospital Course (1) Status post revision of total replacement of right knee: This patient is a 70 year old female admitted on 09/24/20 and underwent total knee revision/exchange of polyethylene liner. She tolerated the procedure well and there were no complications. Transferred to the PACU post op and later to the orthopedic floor for further care. She was given ancef for antibiotic prophylaxis. She was also given HAMMAD stockings, SCDs, and aspirin for DVT prophylaxis. Hemoglobin, hematocrit, and vital signs were monitored during her hospital stay and remained stable. Did not require any blood transfusions. There were no complications during her hospital stay. By post op day #2 the patient was tolerating a regular diet, pain was reasonably controlled with oral pain medicine, and she was participating in physical therapy. On post op day #2 the patient was discharged home and set up with home health care. She was given printed discharge instructions including prescriptions for extra strength tylenol, aspirin, and tramadol. Continue physical therapy, weight bearing as tolerated. Continue HAMMAD stockings. Follow up approximately 2 weeks post op or sooner if there are problems or concerns. Coding Level of Care Code None Diagnoses Status post revision of total replacement of right knee Z96.651
== END 2020-09-26 14:16 | disposition home or self-care (01) ==
LOC: ASU 11:25 → 3E 11:25 → UNDODISOB 09-26 13:30

== ENCOUNTER 2024-05-09 15:24 | Inpatient (IN) ==
[2024-05-09] MEDS: ONDANSETRON INJ 2 MG/ML 2 ML VIAL IV STA (15:40)
[2024-05-09] MEDS: MoRPHine SULFATE 4 MG/ML 1 ML CARP\\VIAL IV PRN (15:41)
[2024-05-09] MEDS: SODIUM CHLORIDE 0.9% 500 ML IV STA (15:42)
--- NOTE | 2024-05-09 15:48 | Emergency Department Note ---
Impression & Plan Subcapital fracture of left hip, Fall ED Provider Note NAME: JANE MCGOVERN AGE: 73 SEX: F : 1950 ARRIVES VIA: Ambulance INFORMANT: Patient, EMS ED PROVIDER(S): Richard Mei DO CHIEF COMPLAINT: Fall HPI: The patient is a 73-year-old female who has a history of Parkinson's who presented to the emergency department after a fall. The patient states that she was out for a walk. She became dizzy when she turned quickly and fell onto her left side. The patient was not able to stand. The patient arrived via ambulance. The patient describes having any nausea or vomiting. She denies striking her head. She denies having any headache or neck pain. The patient was immobilized prior to arrival in a position of comfort. She arrived via ambulance. ROS: See above HPI for pertinent positives & negatives. A total of 10 systems reviewed and were otherwise negative. PAST MEDICAL HISTORY: See Below PAST SURGICAL HISTORY: See Below FAMILY HISTORY: See Below SOCIAL HISTORY: See Below HOME MEDICATIONS: See Below ALLERGIES: See Below VITALS: See Below PHYSICAL EXAMINATION: GENERAL: Patient is awake and alert. She is very anxious and appears to be uncomfortable. EYES: The conjunctivae are clear. The pupils are round and reactive. EARS, NOSE, MOUTH AND THROAT: The nose is without any evidence of any deformity. NECK: The neck is nontender and supple. RESPIRATORY: Normal respiratory effort is noted there is no evidence of wheezing rhonchi or rales CARDIOVASCULAR: Regular rate and rhythm noted there no murmurs rubs or gallops normal S1 normal S2. GASTROINTESTINAL: The abdomen is soft. Abdomen is nontender. BACK: No midline tenderness or or step-off noted range of motion in flexion extension as well as rotation no signs of muscle spasm noted MUSCULOSKELETAL/EXTREMITIES: There is shortening noted to the left hip. There is tenderness to range of motion testing of the left hip. Pulses are symmetric in both feet. There is also a small abrasion and tenderness over the left knee. There is no tenderness below the knee. SKIN: There is no obvious evidence of any rash. There are no petechiae, pallor or cyanosis noted. NEUROLOGIC: Patient is awake alert and oriented x3 MEDICAL DECISION MAKING: The patient is a 73-year-old female who presented to the emergency department for an evaluation after a fall. The patient fell onto her left side suffering a left hip fracture. She was treated with pain medication in the emergency department. She was reevaluated multiple times. I discussed the patient's laboratory and radiographic studies with her. I discussed her condition with the on-call [facility] hospitalist as well as the on-call orthopedic physician. They have agreed to evaluate the patient for further management and disposition. Likely the patient will require inpatient management and surgical intervention. Triage Nursing notes reviewed. Prior medical records reviewed Vital Signs: reviewed and remarkable for elevated blood pressure. Differential diagnosis: Fracture, subluxation, dislocation, contusion, ligamentous injury, neurovascular, compartment syndrome, rhabdomyolysis, as well as other pathologies. ER treatment provided: See below Diagnostics interpreted by me: ECG: EKG was obtained in the emergency department. My interpretation is sinus rhythm at 75 bpm. Frequent PVCs were noted. Nonspecific ST segment depressions were also appreciated. This was compared to a tracing from April 30, 2020. The PVCs are new otherwise no specific changes are noted. Cardiac Monitoring: An order was placed for continuous cardiac monitoring. The monitor shows a rate of 81 beats per with sinus rhythm. Laboratory studies: As stated above and show below. Imaging studies: See below. Radiographic imaging was reviewed by myself Consultation(s): I discussed this case with Jillian who is on for the [facility] hospitalist group. I discussed this case with Dr. Whitehead who is on-call for the orthopedic group. Past Med/Surg History Problem List (Updated 05/09/24 @ 18:19 by Richard Mei DO) Fall (Acute) Subcapital fracture of left hip (Acute) Fall Subcapital fracture of left hip Left knee DJD Greater trochanteric bursitis of right hip Lumbar spondylosis Hip bursitis, left Status post revision of total replacement of right knee Intraductal carcinoma of left breast (Chronic 11/25/16) Parkinson disease Intractable neuropathic pain of lower extremity (Chronic) Right knee DJD Encounter for preoperative screening laboratory testing for COVID-19 virus Status post total knee replacement, right Right knee pain Sciatica Right knee dislocation History of lumbar fusion L4-S1 10/[address] Martel Status post left breast lumpectomy History of breast cancer (Chronic) Dx'ed 2017- s/p lumpectomy and XRT - no current issues Parkinsons disease (Chronic) DX'D 1999-F/U DR ALLRED- R SIDE AFFECTED >L SIDE Medical History Encounter for pre-operative examination Urinary incontinence MILD Encounter for pre-operative examination SOB (shortness of breath) on exertion "OUT OF SHAPE"-DOES NOT EXERCISE PER PT Cardiac murmur " A BABY"- HAS SINCE RESOLVED Surgical History History of total knee replacement RT History of breast surgery Re-incision surgery to remove additional margins after lumpectomy H/O breast biopsy LEFT History of colonoscopy Family History Mother Family hx of colon cancer Social History Smoking Status: Never smoker Second Hand Exposure: Yes (SPOUSE USED TO SMOKE); Do You Dip or Chew Tobacco: No; Hx Alcohol Use: Yes Alcohol type: wine Hx Substance Use: No Preferred Language: Persian Communication Ability: Effective Visual Impairment: No Limitations Hearing Ability: Normal Duplicator Punch Set Up Operator Required: No Beliefs That Will Affect Care: None marital status: Current Living Situation: Spouse current occupational status: retired Feels Safe at Home: Yes Assistive Devices: Walker Allergies Allergies Allergy/AdvReac Type Severity Reaction Status Date / Time adhesive Allergy Mild Rash Verified 10/01/21 14:41 Gold Salts Allergy Mild Rash Verified 10/01/21 14:41 nickel Allergy Mild Discolors Verified 10/01/21 14:41 skin Home Meds Home Medications Medication Instructions Recorded Confirmed carbidopa 25 mg-levodopa 100 mg 1 tab PO QID 04/21/18 05/09/24 tablet (Sinemet) cholecalciferol (vitamin D3) 25 1,000 units PO QAM 04/21/18 05/09/24 mcg (1,000 unit) capsule carbidopa 50 mg-levodopa 200 1 tab PO HS 09/21/18 05/09/24 mg-entacapone 200 mg tablet acetaminophen 500 mg tablet 500 mg PO Q6H PRN Pain 05/24/19 05/09/24 (Tylenol Extra Strength) docusate sodium 100 mg capsule 100 mg PO BID 05/24/19 05/09/24 (Colace) gabapentin 600 mg tablet 600 mg PO BID 09/28/19 05/09/24 polyethylene glycol 3350 17 gram 17 g PO QPM 04/23/20 05/09/24 oral powder packet (Miralax) trazodone 50 mg tablet 50 mg PO HS 04/23/20 05/09/24 amantadine HCl 100 mg tablet 100 mg PO TID 10/01/21 05/09/24 calcium carbonate 1,500 mg PO DAILY 10/01/21 05/09/24 rasagiline 0.5 mg tablet (Azilect) 0.25 mg PO QAM 10/01/21 05/09/24 sennosides 8.6 mg tablet 8.6 mg PO QAM 10/01/21 05/09/24 meloxicam 7.5 mg tablet 7.5 mg PO QAM 05/09/24 05/09/24 Previous Rx's Medication Instructions Recorded gabapentin 400 mg capsule 400 mg PO QAM #30 caps 05/24/19 amoxicillin 500 mg capsule 2,000 mg (4 x 500 mg) PO ONCE #4 11/06/22 [facility] Results & Data (ED) Vital Signs Vital Signs - 24 hr 05/09/24 15:31 05/09/24 15:59 Temperature 36.5 C Temperature Source Oral Pulse Rate 62 81 Respiratory Rate 18 Blood Pressure 160/90 H Blood Pressure Mean 113 Pulse Oximetry 99 Oxygen Delivery Method Room Air Sepsis Recent Fever Within 48 Hours No Sepsis New/Unexplained Change in Mental Status No Sepsis Action Taken by Nursing No Action Required Home Medications Current Medication List: was personally reviewed by me Laboratory Data Attestation: I reviewed the patient's lab results. 05/09/24 15:41 05/09/24 15:41 Lab Results 05/09/24 Range/Units 15:41 WBC 11.76 H (4.8-10.8) K/ul RBC 4.07 L (4.20-5.40) M/uL Hgb 13.0 (12.0-16.0) g/dl Hct 37.4 (37.0-47.0) % MCV 91.9 (80.0-100.0) fL MCH 31.9 (25.0-34.0) pg MCHC 34.8 (32.0-36.0) g/dL RDW Std Deviation 43.9 (36.4-46.3) fL RDW Coeff of Joseph 13.1 (11.5-14.5) % Plt Count 237 (130-400) K/uL MPV 11.0 (9.4-12.4) fL Immature Gran % (Auto) 0.5 % Neut % (Auto) 84.1 % Lymph % (Auto) 8.2 % [place]oul[place] % (Auto) 5.9 % Eos % (Auto) 1.0 % Baso % (Auto) 0.3 % Neut # (Auto) 9.90 H (1.40-6.50) K/uL Lymph # (Auto) 0.96 L (1.20-3.40) K/uL [place] # (Auto) 0.69 H (0.11-0.59) K/uL Eos # (Auto) 0.12 (0.00-0.50) K/uL Baso # (Auto) 0.03 (0.00-0.20) K/uL Immature Gran # (Auto) 0.06 (0.01-0.20) K/uL PT 11.3 (9.0-12.0) Seconds INR 1.0 (0.9-1.1) APTT 25 (21-31) Seconds PTT Ratio 0.9 Sodium 139 (136-145) mmol/L Potassium 3.8 (3.5-5.1) mmol/L Chloride 104 (98-107) mmol/L Carbon Dioxide 26 (21-32) mmol/L Anion Gap 9 (3-11) BUN 19 (6-23) mg/dl Creatinine 0.83 (0.6-1.2) mg/dl Est Cr Clr Drug Dosing 58.7 ml/min Est GFR ( Amer) 81.1 ml/min Est GFR (Non-Af Amer) 70.0 ml/min BUN/Creatinine Ratio 22.9 H (10-20) Glucose 110 H (70-99(Fasting)) mg/dl Calcium 10.3 (8.6-10.3) mg/dl Total Bilirubin 1.1 H (0.2-1.0) mg/dl AST 10 L (13-39) U/L ALT < 3 L (7-52) U/L Alkaline Phosphatase 108 H (34-104) U/L Troponin I High Sens 9.4 (0-14) pg/ml Total Protein 7.4 (6.0-8.3) gm/dl Albumin 4.7 (3.4-5.0) gm/dl Globulin 2.7 (2.5-4.0) gm/dl Albumin/Globulin Ratio 1.7 (0.9-2) Lipase 11 (11-82) U/L Administered Medications Morphine Sulfate (Morphine Sulfate 4 Mg/Ml 1 Ml Carp\\Vial) 4 mg IV Q15M PRN PRN Reason: Pain Stop: 05/23/24 15:27 Last Admin: 05/09/24 15:41 Dose: 4 mg Documented By: NRAnila Discontinued Medications Acetaminophen (Acetaminophen 500 Mg Tab) 1,000 mg PO NOW STA Stop: 05/09/24 16:59 Last Admin: 05/09/24 17:19 Dose: 1,000 mg Documented By: STELLA Cyclobenzaprine HCl (Cyclobenzaprine Hcl 10 Mg Tab) 10 mg PO NOW STA Stop: 05/09/24 16:58 Last Admin: 05/09/24 17:19 Dose: 10 mg Documented By: STELLA Sodium Chloride (Nss) 500 mls @ 999 mls/hr IV .Q31M STA Stop: 05/09/24 15:58 Last Infusion: 05/09/24 16:20 Dose: Infused Documented By: Admin: 05/09/24 15:42 Dose: 999 mls/hr Documented By: STELLA Ondansetron HCl (Ondansetron Inj 2 Mg/Ml 2 Ml Vial) 4 mg IV NOW STA Stop: 05/09/24 15:29 Last Admin: 05/09/24 15:40 Dose: 4 mg Documented By: STELLA Oxycodone HCl (Oxycodone Hcl Ir 5 Mg Tab (Immediate Release)) 5 mg PO NOW STA Stop: 05/09/24 16:59 Last Admin: 05/09/24 17:20 Dose: 5 mg Documented By: STELLA Imaging Data Attestation: I personally reviewed and interpreted this imaging study as follows: My Impression: Stray of the left hip and pelvis was obtained in the emergency department. My interpretation is subcapital left hip fracture, final report below. X-ray of the left knee was obtained in the emergency department. My interpretation is no definite fracture, final report below. 1 view chest x-ray was obtained in the emergency department. My interpretation is no free air or definite infiltrate, final report below. Radiologist's Impression: Hip/Pelvis X-Ray 05/09/24 15:28 XR hip LT 2V w pelvis CLINICAL HISTORY: fall COMPARISON: Pelvis radiograph January 24, 2021. FINDINGS: There is an acute displaced left femoral neck fracture. Fracture is displaced 1.8 cm. No additional fractures are identified within the pelvis or right hip. Proximal right femur is intact. L4-S1 decompression and fusion is noted. Lucency adjacent to the bilateral S1 pedicle screws is unchanged. IMPRESSION: Acute displaced left femoral neck fracture. ACT 112: Negative or not required by law. Electronically signed by: Jagjit Potter M.D. 05/09/2024 4:24 PM Knee X-Ray 05/09/24 15:28 XR knee LT 1 or 2V routine CLINICAL HISTORY: Fall. COMPARISON: Left knee radiographs January 12, 2023. FINDINGS: Alignment of left knee is anatomic. There is no joint effusion. There are no acute fractures. Patellofemoral compartment osteophytosis is present. IMPRESSION: No fractures within the left knee. ACT 112: Negative or not required by law. Electronically signed by: Jagjit Potter M.D. 05/09/2024 4:26 PM Chest X-Ray 05/09/24 15:29 SUPINE PORTABLE AP CHEST RADIOGRAPH CLINICAL HISTORY: Fall. COMPARISON STUDY: Chest radiograph April 30, 2020. FINDINGS: No pneumothorax or pleural effusion is identified on supine exam. Skin folds project over the right chest. Lungs are clear. Pulmonary vascularity is normal. Cardiomediastinal silhouette is unremarkable. IMPRESSION: No acute cardiopulmonary findings. ACT 112: Negative or not required by law. Electronically signed by: Jagjit Potter M.D. 05/09/2024 4:36 PM Discharge Plan Visit Data Chief Complaint: Hip Pain ED Provider: Richard Mei Discharge Problem: Subcapital fracture of left hip, Fall Patient Disposition: Being Evaluated by Hospitalist Forms Stand Alone Forms: [employer] Prescriptions Prescriptions: No Action gabapentin 600 mg tablet 600 mg PO BID Patient Comments: This is taken after lunch and at bedtime Rx Instructions: 5pm and 11pm acetaminophen [Tylenol Extra Strength] 500 mg tablet 500 mg PO Q6H PRN (Reason: Pain) gabapentin 400 mg capsule 400 mg PO QAM Qty: 30 3RF carbidopa-levodopa [Sinemet] 25-100 mg tablet 1 tab PO QID cholecalciferol (vitamin D3) 1,000 unit capsule 1,000 units PO QAM docusate sodium [Colace] 100 mg capsule 100 mg PO BID amantadine HCl 100 mg tablet 100 mg PO TID rasagiline [Azilect] 0.5 mg tablet 0.25 mg PO QAM calcium carbonate 500 mg calcium (1,250 mg) tablet,chewable 1,500 mg PO DAILY [id number]-[id number] 50-200-200 mg tablet 1 tab PO HS sennosides 8.6 mg tablet 8.6 mg PO QAM amoxicillin 500 mg capsule 2,000 mg PO ONCE Qty: 4 2RF trazodone 50 mg Tablet 50 mg PO HS polyethylene glycol 3350 [Miralax] 17 gram Powder In Packet 17 g PO QPM meloxicam 7.5 mg tablet 7.5 mg PO QAM Referrals Referrals: Jo Ann Smith DO [Primary Care Provider] - Discharge Problem: Subcapital fracture of left hip Qualifiers: Encounter type: initial encounter Fracture type: closed Qualified Code(s): S 72.012A - Unspecified intracapsular fracture of left femur, initial encounter for closed fracture Fall Qualifiers: Encounter type: initial encounter Qualified Code(s): W19.XXXA - Unspecified fall, initial encounter
[2024-05-09 16:06] LABS: Basophils # (auto) 0.03 K/uL (0.00-0.20); Basophils % (auto) 0.3 %; Eosinophils # (auto) 0.12 K/uL (0.00-0.50); Hematocrit (blood only) 37.4 % (37.0-47.0); Immature Granulocytes # (auto) 0.06 K/uL (0.01-0.20); Immature Granulocytes % (auto) 0.5 %; Lymphocytes # (auto) 0.96 K/uL (1.20-3.40); Lymphocytes % (auto) 8.2 %; Mean Corpuscular Hemoglobin 31.9 pg (25.0-34.0); Mean Corpuscular Hgb Conc 34.8 g/dL (32.0-36.0); Mean Corpuscular Volume 91.9 fL (80.0-100.0); Monocytes # (auto) 0.69 K/uL (0.11-0.59); Monocytes % (auto) 5.9 %; Neutrophils % (auto) 84.1 %; Platelet Count 237 K/uL (130-400); RDW Coefficient of Variation 13.1 % (11.5-14.5); RDW Standard Deviation 43.9 fL (36.4-46.3); Red Blood Count 4.07 M/uL (4.20-5.40); White Blood Count 11.76 K/ul (4.8-10.8)
[2024-05-09 16:20] LABS: Anion Gap 9 (3-11); BUN Creatinine Ratio 22.9 (10-20); Blood Urea Nitrogen 19 mg/dl (6-23); Calcium 10.3 mg/dl (8.6-10.3); Carbon Dioxide 26 mmol/L (21-32); Chloride 104 mmol/L (98-107); Creatinine Clr Calc Pharmacy 58.7 ml/min; Est GFR (African American) 81.1 ml/min; Glucose 110 mg/dl (70-99(Fasting)); Potassium 3.8 mmol/L (3.5-5.1); Sodium 139 mmol/L (136-145)
--- NOTE | 2024-05-09 16:25 | XRay Report ---
XR hip LT 2V w pelvis CLINICAL HISTORY: fall COMPARISON: Pelvis radiograph January 24, 2021. FINDINGS: There is an acute displaced left femoral neck fracture. Fracture is displaced 1.8 cm. No a dditional fractures are identified within the pelvis or right hip. Proximal right femur is intact. L4 -S1 decompression and fusion is noted. Lucency adjacent to the bilateral S1 pedicle screws is unchang ed. IMPRESSION: Acute displaced left femoral neck fracture. ACT 112: Negative or not required by law. Electronically signed by: Jagjit Potter M.D. 05/09/2024 4:24 PM
[2024-05-09 16:27] LABS: Troponin I High Sensitivity 9.4 pg/ml (0-14)
--- NOTE | 2024-05-09 16:27 | XRay Report ---
XR knee LT 1 or 2V routine CLINICAL HISTORY: Fall. COMPARISON: Left knee radiographs January 12, 2023. FINDINGS: Alignment of left knee is anatomic. There is no joint effusion. There are no acute fractur es. Patellofemoral compartment osteophytosis is present. IMPRESSION: No fractures within the left knee. ACT 112: Negative or not required by law. Electronically signed by: Jagjit Potter M.D. 05/09/2024 4:26 PM
[2024-05-09 16:31] LABS: Partial Thromboplastin Ratio 0.9; Partial Thromboplastin Time 25 Seconds (21-31); Prothrombin Time 11.3 Seconds (9.0-12.0)
[2024-05-09 16:33] LABS: Alanine Aminotransferase < 3 U/L (7-52); Albumin Globulin Ratio 1.7 (0.9-2); Albumin Level 4.7 gm/dl (3.4-5.0); Alkaline Phosphatase 108 U/L (34-104); Aspartate Aminotransferase 10 U/L (13-39); Bilirubin,Total 1.1 mg/dl (0.2-1.0); Globulin 2.7 gm/dl (2.5-4.0); Lipase 11 U/L (11-82); Total Protein 7.4 gm/dl (6.0-8.3)
--- NOTE | 2024-05-09 16:38 | XRay Report ---
SUPINE PORTABLE AP CHEST RADIOGRAPH CLINICAL HISTORY: Fall. COMPARISON STUDY: Chest radiograph April 30, 2020. FINDINGS: No pneumothorax or pleural effusion is identified on supine exam. Skin folds project over t he right chest. Lungs are clear. Pulmonary vascularity is normal. Cardiomediastinal silhouette is unr emarkable. IMPRESSION: No acute cardiopulmonary findings. ACT 112: Negative or not required by law. Electronically signed by: Jagjit Potter M.D. 05/09/2024 4:36 PM
--- NOTE | 2024-05-09 16:45 | History & Physical Report ---
Date of Service May 09, 2024 Assessment & Plan (1) Subcapital fracture of left hip: (2) Fall: (3) Parkinson disease: (4) Intraductal carcinoma of left breast: Plan: Left Femoral Neck fracture Fall - Admit to med surg - Hip fracture order set ordered - Ortho consulted- Dr. Andre Whitehead, plans for OR tomorrow, allow diet this evening, NPO after midnight - pain medication and bowel regimen ordered - PT/OT consults - Likely will require inpatient rehab afterwards, CM to assist with discharge planning, [facility] -Point of contact: would like to be informed regarding orthopedic plans SonBroderick at [phone] Daughter in law (son's ), Tiffanie Iqbal [phone] Parkinson - Continue home medications: Carbidopa-levodopa, amantadine, gabapentin - missed afternoon doses, will order now DVT ppx: teds, scds, no anticoagulation with plans for OR tomorrow Lines: IV x 2 Diet: Allow HH and NPO after midnight for surgical procedure CODE: FULL Dispo: From home, likely to remain in the hospital x 1-2 days A total of 75 minutes were spent with greater than 50% of that time face to face with the patient, personally reviewing all current laboratories, imaging studies, past medication reconciliation, outpatient chart review, and discussion with specialists to collaborate care for the patient with attending. Please see attending documentation for corrections and/or additions. History of Present Illness Chief Complaint: Left hip pain s/p fall Primary Care Provider: Jo Ann Smith, This is a 73-year-old female PMHx of Parkinson's, breast cancer in 2006 status post partial left mastectomy and radiation, HTN, who presents to the hospital after sustaining a fall while she was walking outside, became dizzy as she turned her head too quickly, and fell onto her left side subsequently having severe left-sided hip pain and was unable to stand up. She reports that getting dizzy is common for her with Parkinsons, and normally this occurs and she is able to reach out and hold herself steady for a few moments, and then continues. Today since she was outside, and was ambulating independently, had nothing to support her. She denies hitting her head, no other sustained lacerations or trauma. Pt reports pain in the left hip with minimal leg movement. So far in the ER the patient has been given morphine sulfate 4 mg IV, she reports that it has worn off at this point and does not feel adequate pain control. She also is having severe muscle spasms in the left thigh. She lives at home independently, son at bedside supports the history. Patient took morning medications for Parkinson's however missed afternoon dosing of carbidopa levodopa, gabapentin and amantadine. Patient is found to have a left Femoral neck fracture on imaging. Allergies Allergy/AdvReac Type Severity Reaction Status Date / Time adhesive Allergy Mild Rash Verified 10/01/21 14:41 Gold Salts Allergy Mild Rash Verified 10/01/21 14:41 nickel Allergy Mild Discolors Verified 10/01/21 14:41 skin Home Medications Medication Instructions Recorded Confirmed Type carbidopa 25 mg-levodopa 100 mg 1 tab PO QID 04/21/18 05/09/24 History tablet (Sinemet) cholecalciferol (vitamin D3) 25 1,000 units PO QAM 04/21/18 05/09/24 History mcg (1,000 unit) capsule carbidopa 50 mg-levodopa 200 1 tab PO HS 09/21/18 05/09/24 History mg-entacapone 200 mg tablet acetaminophen 500 mg tablet 500 mg PO Q6H PRN Pain 05/24/19 05/09/24 History (Tylenol Extra Strength) docusate sodium 100 mg capsule 100 mg PO BID 05/24/19 05/09/24 History (Colace) gabapentin 400 mg capsule 400 mg PO QAM #30 caps 05/24/19 05/09/24 Rx gabapentin 600 mg tablet 600 mg PO BID 09/28/19 05/09/24 History polyethylene glycol 3350 17 gram 17 g PO QPM 04/23/20 05/09/24 History oral powder packet (Miralax) trazodone 50 mg tablet 50 mg PO HS 04/23/20 05/09/24 History amantadine HCl 100 mg tablet 100 mg PO TID 10/01/21 05/09/24 History calcium carbonate 1,500 mg PO DAILY 10/01/21 05/09/24 History rasagiline 0.5 mg tablet (Azilect) 0.25 mg PO QAM 10/01/21 05/09/24 History sennosides 8.6 mg tablet 8.6 mg PO QAM 10/01/21 05/09/24 History amoxicillin 500 mg capsule 2,000 mg (4 x 500 mg) PO ONCE #4 11/06/22 05/09/24 Rx caps meloxicam 7.5 mg tablet 7.5 mg PO QAM 05/09/24 05/09/24 History Past Med/Surg History Problem List (Updated 05/09/24 @ 18:19 by Richard Mei DO) Fall (Acute) Subcapital fracture of left hip (Acute) Fall Subcapital fracture of left hip Left knee DJD Greater trochanteric bursitis of right hip Lumbar spondylosis Hip bursitis, left Status post revision of total replacement of right knee Intraductal carcinoma of left breast (Chronic 11/25/16) Parkinson disease Intractable neuropathic pain of lower extremity (Chronic) Right knee DJD Encounter for preoperative screening laboratory testing for COVID-19 virus Status post total knee replacement, right Right knee pain Sciatica Right knee dislocation History of lumbar fusion L4-S1 10/[address] Martel Status post left breast lumpectomy History of breast cancer (Chronic) Dx'ed 2017- s/p lumpectomy and XRT - no current issues Parkinsons disease (Chronic) DX'D 1999-F/U DR ALLRED- R SIDE AFFECTED >L SIDE Medical History Encounter for pre-operative examination Urinary incontinence MILD Encounter for pre-operative examination SOB (shortness of breath) on exertion "OUT OF SHAPE"-DOES NOT EXERCISE PER PT Cardiac murmur " A BABY"- HAS SINCE RESOLVED Surgical History History of total knee replacement RT History of breast surgery Re-incision surgery to remove additional margins after lumpectomy H/O breast biopsy LEFT History of colonoscopy Family History Mother Family hx of colon cancer Social History Smoking Status: Never smoker Second Hand Exposure: Yes (SPOUSE USED TO SMOKE); Do You Dip or Chew Tobacco: No; Hx Alcohol Use: Yes Alcohol type: wine Hx Substance Use: No Preferred Language: Estonian Communication Ability: Effective Visual Impairment: No Limitations Hearing Ability: Normal Fire Information Officer Required: No Beliefs That Will Affect Care: None marital status: Current Living Situation: Spouse current occupational status: retired Feels Safe at Home: Yes Assistive Devices: Walker Review of Systems Review of Systems: Constitutional: No fever, sweats or chills, + bouts of dizziness as per HPI with history of Parkinson's, no dizziness presently Eyes: No diplopia, no worsening or blurred vision ENT: normal hearing, no trouble swallowing Respiratory: No cough, sputum, dyspnea at rest or on exertion Cardiovascular: No chest pain, tightness or palpitations Abdomen: No pain, nausea, vomiting, diarrhea or constipation Musculoskeletal: Left hip pain with left lower extremity movement, otherwise no joint pain, calf pain, swelling Neurologic: No weakness, numbness/tingling, or balance problems Psychiatric: No anxiety or depression Skin: No rash or itch Physical Exam Physical Exam: General: awake, alert, no apparent distress, white female, Parkinson-like m ovements with multiple limbs slightly flailing at times Head: Normocephalic, atraumatic ENT: PERRL, EOMI, no pharyngeal exudate, mucous membranes moist Chest: Clear to auscultation, on room air, no adventitious breath sounds Cardiac: Regular rate and rhythm, no murmur, no JVD, normal peripheral pulses, good capillary refill Abdominal: NABS x 4 quadrants, soft, nondistended, nontender to palpation, no rebound or guarding Extremities: LLE is shortened and externally rotated, no numbness or tingling distally, peripheral pulses intact distally, otherwise normal inspection, no peripheral edema or erythema, calfs nontender to palpation Psych: Normal mood and affect Neuro: AAO x 3, strength intact bilaterally and rated 5/5, no motor deficits, speech is clear, no peripheral sensory deficits Results & Data Results & Data Vital Signs (Past 12 Hours) Vital Signs Temp Pulse Resp BP Pulse Ox O2 Del Method 05/09/24 15:59 81 05/09/24 15:31 36.5 C 62 18 160/90 H 99 Room Air Laboratory Results 05/09/24 15:41 WBC 11.76 H RBC 4.07 L Hgb 13.0 Hct 37.4 MCV 91.9 MCH 31.9 MCHC 34.8 RDW Std Deviation 43.9 RDW Coeff of Joseph 13.1 Plt Count 237 MPV 11.0 Immature Gran % (Auto) 0.5 Neut % (Auto) 84.1 Lymph % (Auto) 8.2 Roseau % (Auto) 5.9 Eos % (Auto) 1.0 Baso % (Auto) 0.3 Neut # (Auto) 9.90 H Lymph # (Auto) 0.96 L Roseau # (Auto) 0.69 H Eos # (Auto) 0.12 Baso # (Auto) 0.03 Immature Gran # (Auto) 0.06 PT 11.3 INR 1.0 APTT 25 PTT Ratio 0.9 Sodium 139 Potassium 3.8 Chloride 104 Carbon Dioxide 26 Anion Gap 9 BUN 19 Creatinine 0.83 Est Cr Clr Drug Dosing 58.7 Est GFR ( Amer) 81.1 Est GFR (Non-Af Amer) 70.0 BUN/Creatinine Ratio 22.9 H Glucose 110 H Calcium 10.3 Total Bilirubin 1.1 H AST 10 L ALT < 3 L Alkaline Phosphatase 108 H Troponin I High Sens 9.4 Total Protein 7.4 Albumin 4.7 Globulin 2.7 Albumin/Globulin Ratio 1.7 Lipase 11 Diagnostic Findings Hip/Pelvis X-Ray 05/09/24 15:28 XR hip LT 2V w pelvis CLINICAL HISTORY: fall COMPARISON: Pelvis radiograph January 24, 2021. FINDINGS: There is an acute displaced left femoral neck fracture. Fracture is displaced 1.8 cm. No additional fractures are identified within the pelvis or right hip. Proximal right femur is intact. L4-S1 decompression and fusion is noted. Lucency adjacent to the bilateral S1 pedicle screws is unchanged. IMPRESSION: Acute displaced left femoral neck fracture. ACT 112: Negative or not required by law. Electronically signed by: Jagjit Potter M.D. 05/09/2024 4:24 PM Knee X-Ray 05/09/24 15:28 XR knee LT 1 or 2V routine CLINICAL HISTORY: Fall. COMPARISON: Left knee radiographs January 12, 2023. FINDINGS: Alignment of left knee is anatomic. There is no joint effusion. There are no acute fractures. Patellofemoral compartment osteophytosis is present. IMPRESSION: No fractures within the left knee. ACT 112: Negative or not required by law. Electronically signed by: Jagjit Potter M.D. 05/09/2024 4:26 PM Chest X-Ray 05/09/24 15:29 SUPINE PORTABLE AP CHEST RADIOGRAPH CLINICAL HISTORY: Fall. COMPARISON STUDY: Chest radiograph April 30, 2020. FINDINGS: No pneumothorax or pleural effusion is identified on supine exam. Skin folds project over the right chest. Lungs are clear. Pulmonary vascularity is normal. Cardiomediastinal silhouette is unremarkable. IMPRESSION: No acute cardiopulmonary findings. ACT 112: Negative or not required by law. Electronically signed by: Jagjit Potter M.D. 05/09/2024 4:36 PM ECG Additional Comments: Sinus, few PVCs nonspecific T waves. Code Status & VTE Plan Code Status Full code - discussed with pt and son at bedside Supervising Physician Co-Signing Physician Notes 73 y/o female admitted with a subcapital left hip fracture post fall. Pt seen and examined in the ED with Justina Ordoñez PA-C. Her son is present. 20 minutes spent in the care coordination of this patient. Dr. Whitehead has been contacted and the plain is for operative repair tomorrow. NPO at midnight. I agree with the assessment and plan by the PANKAJ.
--- NOTE | 2024-05-09 16:58 | Electrocardiogram Report ---
Test Reason : Blood Pressure : */* mmHG Vent. Rate : 75 BPM Atrial Rate : 75 BPM P-R Int : 184 ms QRS Dur : 82 ms QT Int : 358 ms P-R-T Axes : 33 7 52 degrees QTcB Int : 399 ms Poor data quality, interpretation may be adversely affected Probably Sinus rhythm with Premature supraventricular complexes and with frequent Premature ventricu lar complexes Otherwise normal ECG When compared with ECG of 30-Apr-2020 09:48, Premature ventricular complexes are now Present Nonspecific T wave abnormality, improved in Anterolateral leads QT has shortened Confirmed by Ermias Santoro ([id number]) on 05/09/2024 4:58:07 PM Referred By: Confirmed By: Ermias Santoro
[2024-05-09] MEDS: ACETAMINOPHEN 500 MG TAB PO STA (17:19)
[2024-05-09] MEDS: CYCLOBENZAPRINE HCL 10 MG TAB PO STA (17:19)
[2024-05-09] MEDS: oxyCODONE HCL IR 5 MG TAB (IMMEDIATE RELEASE) PO STA (17:20)
[2024-05-09 18:31] LABS: Appearance Urine Clear (Clear); Bilirubin Urine Negative (Negative); Blood Urine Negative (Negative); Color Urine Yellow; Glucose Urine UA Negative (Negative); Ketones Urine Negative (Negative); Leukocyte Esterase Urine Negative (Negative); Nitrite Urine Positive (Negative); Protein Urine Negative (Negative); Urobilinogen Urine Negative (Negative); pH Urine 6.5 (4.5-7.5)
[2024-05-09 19:37] LABS: Epithelial Cell Urine 0-2 /hpf (0-2)
[2024-05-09 19:38] LABS: Bacteria Urine 3+ (None Seen); Hyaline Casts Urine P /lpf (None Presnt); RBC Urine 0-2 /hpf (0-2); WBC Urine 0-5 /hpf (0-5)
[2024-05-09] MEDS ORDERED: MAGNESIUM HYDROXIDE SUSP 30 ML UDC PO PRN (20:18)
[2024-05-09] MEDS ORDERED: MoRPHine SULFATE 2 MG/ML CARP IV PRN (20:18)
[2024-05-09] MEDS ORDERED: bisacodyL 10 MG SUPP PR PRN (20:18)
[2024-05-09] MEDS ORDERED: ONDANSETRON INJ 2 MG/ML 2 ML VIAL IV PRN (20:18)
[2024-05-09] MEDS ORDERED: NALOXONE HCL 0.4 MG/1 ML VIAL/CARP IV PRN (20:18)
[2024-05-09] MEDS: CARBIDOPA/LEVODOPA 25/100MG TAB PO SCH ×2 (21:01→21:29)
[2024-05-09] MEDS: traZODone HCL 50 MG TAB PO SCH (21:01)
[2024-05-09] MEDS: AMANTADINE HCL 100 MG CAPSULE PO SCH (21:02)
[2024-05-09] MEDS: ENTACAPONE 200 MG TAB PO SCH (22:01)
[2024-05-09] MEDS: NSS + 20MEQ KCL 20 MEQ/1,000 ML BAG IV ONE (23:45)
[2024-05-10] MEDS: POLYETHYLENE (MIRALAX) 17 GM PACK PO SCH (00:06)
[2024-05-10] MEDS: GABAPENTIN 600 MG TAB PO SCH (00:06)
[2024-05-10] MEDS: DOCUSATE SODIUM 100 MG CAP PO SCH (00:06)
[2024-05-10] MEDS: ACETAMINOPHEN 500 MG TAB PO SCH (01:24)
--- NOTE | 2024-05-10 01:32 | CT Scan Report ---
Exam(s): CT HEAD Without Contrast EXAM: CT Head Without Intravenous Contrast CLINICAL HISTORY: Reason for exam: diaz, fall hx. TECHNIQUE: Axial computed tomography images of the head/brain without intravenous contrast. CTDI is 37.78 mGy and DLP is 781.9 mGy-cm. Automated exposure control was utilized for the study. A dose lowering technique was utilized adhering to the principles of ALARA. COMPARISON: No relevant prior studies available. FINDINGS: No acute intracranial hemorrhage. No midline shift or mass effect. The territorial kaba-white matter differentiation is maintained throughout. Age-related cerebral volume loss. Periventricular and subcortical white matter hypoattenuation, consistent with chronic microangiopathy. The visualized orbits appear grossly unremarkable. The calvarium is intact. The visualized paranasal sinuses and mastoid air cells are grossly clear. IMPRESSION: No acute intracranial hemorrhage, midline shift, or mass effect. Electronically signed by: Erik Girard MD 05/10/24 01:31 AM
--- OUTSIDE RECORDS SUMMARY | 2024-05-10 02:47 | External Medical Summary | Summary of Care ---
Author Name Unknown Organization [facility] Address [address] [place] [address] Phone [phone] Care Team Providers Care Slat Basket Maker Name Role Phone Jo Ann Smith DO Primary Care Provider [phone] Reason for Referral * Evaluate & Treat - Unlimited Visits (Within 30 days (routine)) - Authorized Specialty Diagnoses / Procedures Referred By Bettye garcia Referred To Contact Ophthalmology Diagnoses Abscess of left lower eyelid Yokasta Arellano, OD [address] [place] [address] Referral ID Status Reason Start Date Expiration Date Visits Requested Visits Authorized [id number] Authorized Specialty Services Required 01/26/2024 999 999 Question Answer Referral Priority Within 30 days (routine) Where should this appointment be scheduled? [facility] Referring for: Ophthalmology Conditions Ophthalmology Conditions Other Ophthalmology (comment) Comments Lower lid growth Reason for Visit * Reason Onset Date Comments Referral 01/26/2024 Encounter Details Date Type Department Care Team ([facility] Contact Info) Description 01/26/2024 Telephone Access Center, [place] [address] [facility] *DO NOT REMOVE THIS DEPARTMENT* [place] [address] Request, External Referral Referral Allergies Active Allergy Reactions Criticality Noted Date Comments Adhesive Tape Rash 11/17/2016 Gold Rash 11/17/2016 Nickel Rash 11/17/2016 Discoloration of skin documented as of this encounter (statuses as of 01/26/2024) Medications Medication Sig Dispensed Refills Start Date End Date Status Calcium 500 MG Tablet Take 3 Tablets by mouth in the morning. 1 Tab 04/06/2017 Active Cholecalciferol (VITAMIN D3) 1000 units CAPS Take 1 Cap by mouth once for 1 dose. 1 Cap 04/06/2017 Active docusate sodium (COLACE) 100 MG Capsule Take 1 Capsule by mouth in the morning and 1 Capsule before bedtime. 60 Cap 5 11/12/2017 Active Polyethylene Glycol 3350 17 GM/SCOOP Oral Powder Take 17 g by mouth in the morning. 255 g 11/12/2017 Active Sennosides 8.6 MG Capsule Take 1 Capsule by mouth in the morning. 1 Cap 04/19/2018 Active acetaminophen (TYLENOL) 500 MG Tablet Take 1 Tablet by mouth every 4 hours as needed for Pain. Active Zoster Vac Recomb Adjuvanted 50 MCG/0.5ML Intramuscular Suspension Reconstituted (Shingrix)Indicatio ns:Need for vaccination for zoster Inject 0.5 mL into a large muscle now and repeat dose in 60 to 180 days 1 Each 1 01/24/2021 Active Additional Information Patient not taking.Reported on 06/01/2023 Triamcinolone Acetonide 0.1 % External Cream (Aristocort)Indicat ions:Bug bite, initial encounter Apply 2x daily (or more if itchy instead of scratching) to bites until resolved 45 g 04/08/2022 Active Additional Information Patient not taking.Reported on 02/16/2023 Carbidopa-Levodopa 25-100 MG Oral Tablet (Sinemet) TAKE 1 TABLET BY MOUTH 4 TIMES DAILY AND 1/2 TO 1 TABLET BY MOUTH EXTRA NEEDED 450 Tablet 10/08/2023 Active Carbidopa-Levodopa ER 50-200 MG Oral Tablet Extended Release (Sinemet CR) TAKE 1 TABLET BY MOUTH AT BEDTIME 90 Tablet 10/08/2023 Active Gabapentin 600 MG Oral Tablet (Neurontin) TAKE 1 TABLET BY MOUTH IN THE AFTERNOON AND AT NIGHT 180 Tablet 1 10/08/2023 Active Gabapentin 400 MG Oral Capsule (Neurontin) TAKE 1 CAPSULE BY MOUTH DAILY IN THE MORNING 90 Capsule 1 10/22/2023 Active Meloxicam 7.5 MG Oral Tablet Take 1 Tablet by mouth in the morning. for pain.. 90 Tablet 3 11/06/2023 Active Rasagiline Mesylate 0.5 MG Oral Tablet (Azilect) One half pill orally daily 90 Tablet 3 11/09/2023 Active Amantadine HCl 100 MG Oral Capsule (Symmetrel)Indicati ons:Parkinson's disease (HCC) TAKE 1 CAPSULE BY MOUTH 3 TIMES DAILY 270 Capsule 12/31/2023 Active traZODone HCl 50 MG Oral Tablet (Desyrel)Indication s:Insomnia, unspecified type TAKE 1 TABLET BY MOUTH AT BEDTIME 90 Tablet 1 01/01/2024 Active Furosemide 20 MG Oral Tablet (Lasix)Indications: Ankle edema, bilateral Take 1 Tablet by mouth daily as needed (swelling ankles). 30 Tablet 11 01/13/2024 Active documented as of this encounter (statuses as of 01/26/2024) Active Problems Problem Noted Date Diagnosed Date 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 Parkinson's disease 10/05/2017 HTN, goal below 150/90 10/26/2014 Menopause documented as of this encounter (statuses as of 01/26/2024) Resolved Problems Problem Noted Date Diagnosed Date Resolved Date History of left breast cancer 10/05/2017 12/22/2018 Herniation of intervertebral disc between L4 and L5 04/06/2017 11/02/2017 Intraductal carcinoma in situ of left breast 7 10/05/2017 Inflamed seborrheic keratosis 02/23/2015 10/14/2017 Plata angioma 01/25/2013 10/14/2017 Other seborrheic keratosis 01/25/2013 0 10/14/2017 Lichenoid keratosis 01/25/2013 10/15/19 18 Melasma 01/25/2013 10/14/2017 Diffuse photodamage of skin 01/25/2013 10/14/2017 CALCIF TENDINITIS ARINER--RIGHT 01/29/2011 10/14/2017 Need for prophylactic vaccin ation and inoculation against other viral diseases(V04.89) 07/11/2010 10/14/2017 Routine medical exam 02/28/2009 018 ADVANCE DIRECTIVE INFORMATION 01/21/2005 10/14/2017 Overview: No, Advance Directive brochure offered , patient declined. EXTRAPYRAMIDAL DIS NOS 09/30/200410/14 Acute laryngitis 09/30/2004 02/28/2009 Overview: ICD-10 update of inactive term Chronic rhinitis 09/30/2004 02/28/2009 PHARYNGITIS 09/30/2004 02/28/2009 Acute laryngitis 06/22/2001 02/28/2009 ACUTE PHARYNGITIS 06/22/2001 09/28/2008 Overview: Resolved per Benign Acute Dxs Protocol #3 Epistaxis 06/22/2001 02/28/2009 RHINITIS 06/22/2001 02/28/2009 SCIATICA, RIGHT, MILD 06/22/20012008 HIP PAIN, RIGHT 06/22/2001 02/28/2009 DYSFUNCT EUSTACHIAN TUBE 06/22/2001 PATELLO-FEMORAL PAIN SYNDROME 03/24/2000 10/14/2017 SACROILIITIS, UPPER RIGHT 03/24/2000 JOINT PAIN-RIGHT SHOULDER 03/24/2000 HTN, goal below 140/90 07/11 Overview: loses some of eyesight when bp too high HTN, goal below 130/80 10/26 Overview: loses some of eyesight when bp too high documented as of this encounter (statuses as of 01/26/2024) Immunizations Name Administration Dates Next Due COVID-19 mRNA, LNP-s, No Pre serve, 2-Dose Series (Moderna) 10/12/2020,09/14/2020 COVID-19, mRNA, LNP-s, PF, B ooster, 100mcg/0.5mg (Moderna) 11/25/2021,06/06/2021 Pneumococcal Conjugate Vacc, 13 Valent (Prevnar) 08/11/2019 Pneumococcal Polysaccharide PPV23 (Pneumovax) 01/24/2021 Season Influenza, Quad, PF, Adjuvanted, 65+ Yrs, IM (FLUAD) 04/20/2020 Seasonal Influenza, PF, 6 M & above, IM , (FluLaval or Fluzone) 05/17/2021,05/11/2019,06/21/2018,08/12 Seasonal Influenza, Quadriva lent Hd (Fluzone Hd) 04/10/2023 Seasonal Influenza, Quadriva lent, No Preserve, IM 06/05/2016,05/25/2015 06/05/2017 Seasonal Influenza, Split, I IV3, With Preserve, Inj 05/10/2014,06/04/2011,07/07/2010 TD, Preservative Free 02/23/2020 TDAP, Age 7 and older, IM (Adacel) 02/28/2009 documented as of this encounter Social History Tobacco Use Types Packs/Day Years Used Date Smoking Tobacco: Never Passive Smoke Exposure: Never Smokeless Tobacco: Never Comments:No passive smoke ex posure Alcohol Use Standard Drinks/Week Comments No 0 (1 standard drink = 0.6 oz pur e alcohol) PHQ-2 Answer Date Recorded PHQ Adult Total Score 1 12/27/2021 Hunger Vital Sign Answer Date Recorded Worried About Running Out of Food in the Last Ye ar Never true 02/23/2020 Ran Out of Food in the Last Year Never true 02/23/2020 Sex and Gender Information Value Date Recorded Sex Assigned at Female 12/04/2022 10:18 AM EDT Gender Identity Female 12/27/2021 2:36 PM EDT Sexual Orientation Straight 02/23/2020 8: 57 AM EDT Job Start Date Occupation Industry Not on file Not on file Not on file documented as of this encounter Plan of Treatment Upcoming Encounters Date Type Department Care Team (Late st Contact Info) Description 02/08/2024 11:20 AM EDT Office Visit Neurology [facility] [address] [place] [address] Broderick Weber MD [address] [facility] [place] [address] 04/14/2024 12:40 PM EDT Office Visit Dermatology [facility] [address] [place] [address] Sarah Fish PA-C [address] [facility] [place] [phone] 07/29/2024 9:50 AM EST [address] [phone] Jo Ann Smith, DO [address] [place] [address] 09/05/2024 10:00 AM EST Office Visit Ophthalmology, [facility] [address] [facility] [place] [address] Sebastien Cruz, DO [address] [place] [address] Scheduled Referrals Name Type Priority Associated Diagnoses Orde r Schedule ADULT/PEDS OPHTHALMOLOGY/OPTOM ETRY REFERRAL OP Referral Within 30 days (routine) Abscess of left lower eyelid Ordered: 01/26/2024 Health Maintenance Due Date Last Done Comments Hepatitis C Screening 1968 Colonoscopy 1995 Fecal Occult Blood Test 1995 Sigmoidoscopy 1995 Zoster Vaccines (1 of 2) 2000 COVID-19 Vaccine ( season) 2023 11/25/2021, 06/06/2021, 10/12/2020, Additional history exists Depression Screening 08/13/2024 08/13/2023, 10/15/19 18 Mammogram 09/21/2024 09/21/2023, 02/2023, 09/16/2022, Additional history exists Albumin/Creatinine Ratio 10/09/2024 10/09/2021 GFR 01/12/2025 01/13/2024, 08/2022, 11/25/2022, Additional history exists Cologuard 01/28/2025 01/28/2022, 01/08, 01/22/2022, Additional history exists Colorectal Cancer Screening 01/28/2025 Lipid Panel 01/24/2026 01/24/2021, 02/07, 02/24/2019, Additional history exists DXA Scan 05/13/2028 05/13/2021, 11/2020, 05/09/2019, Additional history exists DTaP,Tdap,and Td Vaccines (3 - Td or Tdap) 02/22/2030 02/23/2020, 02/28/2009 Pneumococcal Vaccine: 65+ Years Completed 01/24/2021, 08/11/2019 Influenza Vaccine (FLU shot) Completed 08/2022, 07/25/2022, 05/17/2021, Additional history exists GARDASIL-HPV IMMUNIZATION SERIES Aged Out No longer eligible based on patient's age to complete this topic Hepatitis B Aged Out No longer eligi ble based on patient's age to complete this topic MENINGOCOCCAL (MENACTRA/MENVEO) Aged Out No longer eligible based on patient's age to complete this topic documented as of this encounter Medical Devices Not on filedocumented as of this encounter Visit Diagnoses Diagnosis Abscess of left lower eyelid- Primary Abscess of eyelid documented in this encounter Care Teams Slat Basket Maker Relationship Specialty Start Date End Date Jo Ann Smith DO [address] [place] [address] PCP - General Family Medicine 07/10/11 documented as of this encounter
--- OUTSIDE RECORDS SUMMARY | 2024-05-10 02:47 | External Medical Summary | Summary of Care ---
Author Name Unknown Organization [facility] Address [address] [place] [address] Phone [phone] Care Team Providers Care Scientific Advisor Name Role Phone Jo Ann Smith DO Primary Care Provider [phone] Reason for Visit * Reason Comments Follow Up Return in 4 months W ould like to discuss linzess Ankles are swelling but not as much as they were Would like to discuss urinary issues Wants to discuss medications as she is not sure what she is to be taking or not Encounter Details Date Type Department Care Team (Latest Contact Info) Description 01/13/2024 8:30 AM EDT [facility] [address] [place] [address] Jo Ann Smith, [address], [place] [phone] Parkinson's disease with dyskinesia, unspecified whether manifestations fluctuate (HCC)*; Ankle edema, bilateral; HTN, goal below 150/90 Allergies Active Allergy Reactions Criticality Noted Date Comments Adhesive Tape Rash 11/17/2016 Gold Rash 11/17/2016 Nickel Rash 11/17/2016 Discoloration of skin documented as of this encounter (statuses as of 01/13/2024) Medications Medication Sig Dispensed Refills Start Date [...] (swelling ankles). 30 Tablet 11 01/13/2024 Active Amoxicillin 500 MG Oral Capsule (Amoxil)Indications :HTN, goal below 150/90 Take 4 Capsules by mouth once for 1 dose. 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 Parkinson's disease 10/05/2017 HTN, goal below 150/90 10/26/2014 Menopause documented as of this encounter (statuses as of 01/13/2024) Resolved Problems Problem Noted Date Diagnosed Date [...] photodamage of skin 01/25/2013 10/14/2017 CALCIF TENDINITIS TRACIELDER--RIGHT 01/29/2011 10/14/2017 Need for prophylactic vaccin ation [...] as of this encounter (statuses as of 01/13/2024) Immunizations Name Administration Dates Next Due COVID-19 [...] Passive Smoke Exposure: Never Smokeless Tobacco: Never Tobacco Cessation:Counseling Given: Not Answered Comments:No passive smoke exposure Alcohol Use Standard Drinks/Week Comments No 0 [...] on file documented as of this encounter Last Filed Vital Signs Vital Sign Reading Time Taken Comments Blood Pressure 122/68 01/13/2024 8:29 AM EDT Pulse 72 01/13/2024 8:29 AM EDT Temperature 35.9 C (96.7 F) 01/13/2024 8:29 AM ED T Respiratory Rate - - Oxygen Saturation 95% 01/13/2024 8:29 AM EDT Inhaled Oxygen Concentration - - Weight 72.7 kg (160 lb 3.2 oz) 01/13/2024 8:29 A M EDT Height 167.6 cm (5' 6") 01/13/2024 8:29 AM EDT Body Mass Index 25.86 01/13/2024 8:29 AM EDT documented in this encounter Progress Notes * Jo Ann Smith DO - 01/13/2024 8:39 AM EDT Subjective: Marifer Iqbal is a 73 year old female. Chief Complaint Patient presents with Follow Up Return in 4 months Would like to discuss linzess Ankles are swelling but not as much as they were Would like to discuss urinary issues Wants to discuss medications as she is not sure what she is to be taking or not HPI: 73 year old female here today for a follow-up. She has hx of DCIS, parkinsons, htn, and on meds as listed. She is on meds as listed. Still struggling with edema in her ankles I do think this is from her gabapentin, but we talked to Miralax every other day. And senna daily. She was asking about Linzess. We talked continuing this. Her urine flows is slow. Needs amoxil before the dental cleaning, was told due to her back surgery and knee surgery. Will send in. We talked about adding in a water pill will do this. PHM: Patient Active Problem List Diagnosis Menopause HTN, goal below 150/90 Parkinson's disease (HCC) Ductal carcinoma in situ (DCIS) of left breast Current Outpatient Medications Medication Sig Dispense Refill Calcium 500 MG Tablet Take 3 Tablets by mouth in the morning. 1 Tab 0 Cholecalciferol (VITAMIN D3) 1000 units CAPS Take 1 Cap by mouth once for 1 dose. 1 Cap 0 docusate sodium (COLACE) 100 MG Capsule Take 1 Capsule by mouth in the morning and 1 Capsule beforebedtime. 60 Cap 5 Polyethylene Glycol 3350 17 GM/SCOOP Oral Powder Take 17 g by mouth in the morning. 255 g 0 Sennosides 8.6 MG Capsule Take 1 Capsule by mouth in the morning. 1 Cap 0 acetaminophen (TYLENOL) 500 MG Tablet Take 1 Tablet by mouth every 4 hours as needed for Pain. Carbidopa-Levodopa 25-100 MG Oral Tablet (Sinemet) TAKE 1 TABLET BY MOUTH 4 TIMES DAILY AND 1/2 TO 1 TABLET BY MOUTH EXTRA NEEDED 450 Tablet 0 Carbidopa-Levodopa ER 50-200 MG Oral Tablet Extended Release (Sinemet CR) TAKE 1 TABLET BY MOUTH ATBEDTIME 90 Tablet 0 Gabapentin 600 MG Oral Tablet (Neurontin) TAKE 1 TABLET BY MOUTH IN THE AFTERNOON AND AT NIGHT 180 Tablet 1 Gabapentin 400 MG Oral Capsule (Neurontin) TAKE 1 CAPSULE BY MOUTH DAILY IN THE MORNING 90 Capsule 1 Meloxicam 7.5 MG Oral Tablet Take 1 Tablet by mouth in the morning. for pain.. 90 Tablet 3 Rasagiline Mesylate 0.5 MG Oral Tablet (Azilect) One half pill orally daily 90 Tablet 3 Amantadine HCl 100 MG Oral Capsule (Symmetrel) TAKE 1 CAPSULE BY MOUTH 3 TIMES DAILY 270 Capsule 0 traZODone HCl 50 MG Oral Tablet (Desyrel) TAKE 1 TABLET BY MOUTH AT BEDTIME 90 Tablet 1 Zoster Vac Recomb Adjuvanted 50 MCG/0.5ML Intramuscular Suspension Reconstituted (Shingrix) Inject 0.5 mL into a large muscle now and repeat dose in 60 to 180 days (Patient not taking: Reported on 06/01/2023) 1 Each 1 Triamcinolone Acetonide 0.1 % External Cream (Aristocort) Apply 2x daily (or more if itchy instead of scratching) to bites until resolved (Patient not taking: Reported on 02/16/2023) 45 g 0 No current facility-administered medications for this visit. Review of patient's allergies indicates: Allergen Reactions Adhesive Tape Rash Gold Rash Nickel Rash Discoloration of skin Objective: BP 122/68 | Pulse 72 | Temp 35.9 C (96.7 F) | Ht 1.676 m (5' 6") | Wt 72.7 kg (160 lb 3.2 oz) |SpO2 95% | BMI 25.86 kg/m | BSA 1.84 m Physical Exam: General: alert, healthy, and no distress Heart: regular rate & rhythm, no murmur, and no gallops Lungs: chest symmetric with normal AP diameter, no chest deformities noted, no chest wall tenderness, lungs clear to auscultation Abdomen: abdomen soft, non-tender, normal bowel sounds, and no masses or organomegaly Extremities: ankle edema both ankles. + spontaneous upper body movements. ASSESSMENT/PLAN: Parkinson's disease with dyskinesia, unspecified whether manifestations fluctuate (HCC) (Primary) Cont neuro meds as listed. Ankle edema, bilateral - Furosemide 20 MG Oral Tablet (Lasix); Take 1 Tablet by mouth daily as needed (swelling ankles). To use as needed. Compression socks. HTN, goal below 150/90 - BASIC METABOLIC PANEL; Future; Expected date: 01/13/2024 - Amoxicillin 500 MG Oral Capsule (Amoxil); Take 4 Capsules by mouth once for 1 dose. 1 hour beforedental procedure BP stable. And check BMP Follow-up: Return in about 4 months (around 05/14/2024). | Check-out note: Ok to do 20 min follow up Lab s today Jo Ann Smith DO documented in this encounter Nursing Notes * Willow Reaves LPN - 01/13/2024 8:38 AM EDT The patient has been properly identified by confirmation of name and date of . Chief Complaint Patient presents with Follow Up Return in 4 months Would like to discuss linzess Ankles are swelling but not as much as they were Would like to discuss urinary issues Wants to discuss medications as she is not sure what she is to be taking or not documented in this encounter Plan of Treatment Upcoming Encounters Date Type Department Care Team (Late st Contact Info) Description 02/08/2024 11:20 AM EDT Office Visit [facility] [address] [facility] [place] [address] Broderick Weber MD [address] [facility] [place] [address] 04/14/2024 12:40 PM EDT Office Visit Dermatology [facility] [address] [facility] [place] [address] Sarah Fish PA-C [address] [facility] [place] [phone] 07/29/2024 9:50 AM EST Office [facility] [address] [place] [phone] Jo Ann Smith DO [address] [place] [address] Health Maintenance Due Date Last Done Comments Hepatitis C Screening 1968 Colonoscopy 1995 Fecal Occult Blood Test 1995 Sigmoidoscopy 1995 Zoster Vaccines (1 of 2) 2000 COVID-19 Vaccine ( - season) 2023 11/25/2021, 06/06/2021, 10/12/2020, Additional history exists GFR 04/10/2024 04/10/2023, 11/08, 11/14/2021, Additional history exists Depression Screening 08/13/2024 08/13/2023, 10/15/19 18 Mammogram 09/21/2024 09/21/2023, 02/2023, 09/16/2022, Additional history exists Albumin/Creatinine Ratio 10/09/2024 10/09/2021 Cologuard 01/28/2025 01/28/2022, 01/08, 01/22/2022, Additional history [...] as of this encounter Visit Diagnoses Diagnosis Parkinson's disease with dyskinesia, unspecified whether manifestations fluctuate (HCC)- Primary Ankle edema, bilateral HTN, goal below 150/90 documented in this encounter Care Teams Scientific Advisor Relationship Specialty Start Date End Date Jo Ann Smith DO [address] [place] [address] PCP - General Family Medicine 07/10/11 documented as of this encounter
--- OUTSIDE RECORDS SUMMARY | 2024-05-10 02:47 | External Medical Summary | Summary of Care ---
Author Name Unknown Organization [facility] Address [address] [place] [address] Phone [phone] Care Team Providers Care Stencil Printer Name Role Phone Jo Ann Smith DO Primary Care Provider [phone] Reason for Visit * Reason Comments Follow Up Patient here for a s kin check. Nothing real concerning, just bothersome, like skin tags. Encounter Details Date Type Department Care Team (Late st Contact Info) Description 04/14/2024 12:40 PM EDT [facility] [address] [facility] [place] [address] Sarah Fish PA-C [address] [facility] [place] [address] Skin exam, screening for cancer*; Seborrheic keratosis; Lentigines; Inflamed seborrheic keratosis; Skin tag Allergies Active Allergy Reactions Criticality Noted Date Comments Adhesive Tape Rash 11/17/2016 Gold Rash 11/17/2016 Nickel Rash 11/17/2016 Discoloration of skin documented as of this encounter (statuses as of 04/14/2024) Medications Medication Sig Dispensed Refills Start Date [...] 4 hours as needed for Pain. Active Triamcinolone Acetonide 0.1 % External Cream (Aristocort)Indicat ions:Bug bite, initial encounter Apply 2x daily (or more if itchy instead of scratching) to bites until resolved 45 g 04/08/2022 Active Carbidopa-Levodopa 25-100 MG Oral Tablet (Sinemet) TAKE 1 TABLET BY MOUTH 4 TIMES DAILY AND 1/2 TO 1 TABLET BY MOUTH EXTRA NEEDED 450 Tablet 10/08/2023 Active Gabapentin 600 MG Oral Tablet (Neurontin) TAKE 1 TABLET BY MOUTH IN THE AFTERNOON AND AT NIGHT 180 Tablet 1 10/08/2023 Active Meloxicam 7.5 MG Oral Tablet Take [...] 01/13/2024 Active Amoxicillin 500 MG Oral Capsule (Amoxil) 01/13/2024 Active Gabapentin 400 MG Oral Capsule (Neurontin) TAKE 1 CAPSULE BY MOUTH DAILY IN THE MORNING 90 Capsule 1 03/10/2024 Active Carbidopa-Levodopa ER 50-200 MG Oral Tablet Extended Release (Sinemet CR) TAKE 1 TABLET BY MOUTH AT BEDTIME 90 Tablet 03/10/2024 Active Ketoconazole 2 % External Shampoo (Nizoral) Apply to scalp and face 3 times per week 120 mL 4 04/14/2024 Active documented as of this encounter (statuses as of 04/14/2024) Active Problems Problem Noted Date Diagnosed Date 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 Parkinson's disease 10/05/2017 HTN, goal below 150/90 10/26/2014 Menopause documented as of this encounter (statuses as of 04/14/2024) Resolved Problems Problem Noted Date Diagnosed Date [...] photodamage of skin 01/25/2013 10/14/2017 CALCIF TENDINITIS SHLDER--RIGHT 01/29/2011 10/14/2017 Need for prophylactic vaccin ation [...] as of this encounter (statuses as of 04/14/2024) Immunizations Name Administration Dates Next Due COVID-19 [...] No Preserve, IM 06/05/2016,05/25/2015 06/05/2017 Seasonal Influenza, Trivalen t, (IIV3), with Preserv, (Fluzone) 05/10/2014,06/04/2011,07/07/2010 TD, Preservative Free 02/23/2020 TDAP, Age [...] on file documented as of this encounter Progress Notes * Sarah Fish PA-C - 04/14/2024 12:38 PM EDT SUBJECTIVE: History of Present Illness: Marifer Iqbal is a 73 year old female seen today for follow up of skin check. Date Last Appointment: 02/23/2015 (in office), Visit date not found (telemedicine) Patient here for a skin check. Nothing real concerning, just bothersome, like skin tags. Spot on R chest Bumpy spots on skin REVIEW OF SYSTEMS: SKIN: No other new or changing moles. HEME/LYMPH: No new or enlarging lumps or bumps. MEDICA TIONS: Current Outpatient Medications Medication Sig Dispense Refill [...] every 4 hours as needed for Pain. Triamcinolone Acetonide 0.1 % External Cream (Aristocort) Apply 2x daily (or more if itchy instead of scratching) to bites until resolved 45 g 0 Carbidopa-Levodopa 25-100 MG Oral Tablet (Sinemet) TAKE 1 TABLET BY MOUTH 4 TIMES DAILY AND 1/2 TO 1 TABLET BY MOUTH EXTRA NEEDED 450 Tablet 0 Gabapentin 600 MG Oral Tablet (Neurontin) TAKE 1 TABLET BY MOUTH IN THE AFTERNOON AND AT NIGHT 180 Tablet 1 Meloxicam 7.5 MG Oral Tablet Take [...] BY MOUTH AT BEDTIME 90 Tablet 1 Furosemide 20 MG Oral Tablet (Lasix) Take 1 Tablet by mouth daily as needed (swelling ankles). 30 Tablet 11 Amoxicillin 500 MG Oral Capsule (Amoxil) Gabapentin 400 MG Oral Capsule (Neurontin) TAKE 1 CAPSULE BY MOUTH DAILY IN THE MORNING 90 Capsule 1 Carbidopa-Levodopa ER 50-200 MG Oral Tablet Extended Release (Sinemet CR) TAKE 1 TABLET BY MOUTH ATBEDTIME 90 Tablet 0 No current facility-administered medications for this visit. ALLERG IES: Adhesive tape, Gold, and Nickel OBJECTIVE: GEN: Healthy, alert, no distress, appears oriented, pleasant, and cooperative. *pt has dystonia during exam SKIN: Detailed exam of hair, face including lids and lips, neck, chest, abdomen, back, bilateral upper ext. (arm, hand, fingers), bilateral lower ext. (leg, foot, toes), and palpation of scalp completed and are normal except: 1. R and L neck, R chest - tiny brown pedunculated papules 2. Scalp, eyebrows- flaking 3. L inferior eyelid- verrucal skin colored growth (eye makeup atop) ASSESS MENT/PLAN: 1. Inflamed Sks. Cryosurgery explained to the patient, consent obtained, patient, site and procedure verified, and then cryotherapy was performed with Liquid Nitrogen via cryo spray unit to 4 lesions. Location noted in physical exam. Post op course explained. 2. Seborrheic dermatitis Ketoconazole shampoo 3. Skin tag vs VV vs VK vs SK. Pt states she has had this since teenage years without change. She has an catherine to have it removed by oculoplastics in August Follow-up: 1 year There were no barriers tolearning and no other pain was related to today's visit. The patient and/or person accompanying patient demonstrates understanding of the visit and treatment. Sarah Fish PA-C 04/14/2024 12:38 PM documented in this encounter Nursing Notes * Octavia Munson LPN - 04/14/2024 12:41 PM EDT Chief Complaint Patient presents with Follow Up Patient here for a skin check. Nothing real concerning, just bothersome, like skin tags. documented in this encounter Plan of Treatment Upcoming Encounters Date Type Department Care Team (Late st Contact Info) Description 05/16/2024 10:40 AM EDT Office Visit Neurology [facility] [address] [facility] [place] [address] Broderick Weber MD [address] [facility] [place] [address] 07/29/2024 9:50 AM EST Office Visit [facility] [address] [place] [phone] Jo Ann Smith, DO [address] [place] [address] 09/05/2024 10:00 AM EST Office Visit Ophthalmology, [facility] [address] [facility] [place] [address] Sebastien Cruz, DO [address] [facility] [address] Health Maintenance Due Date Last Done Comments Hepatitis C Screening 1968 Colonoscopy 1995 Fecal Occult Blood Test 1995 Sigmoidoscopy 1995 Zoster Vaccines (1 of 2) 2000 Adult Wellness Visit 12/27/2022 12/27/2021 COVID-19 Vaccine ( season) 2024 11/25/2021, 06/06/2021, 10/12/2020, Additional history exists Influenza Vaccine (FLU shot) (#1) 2024 04/10/2023, 07/25/2022, 05/17/2021, Additional history exists Depression Screening 08/13/2024 08/13/2023, 10/15/19 18 Mammogram 09/21/2024 09/21/2023, 02/2023, 09/16/2022, Additional history exists Albumin/Creatinine Ratio 10/09/2024 10/09/2021 GFR 01/12/2025 01/13/2024, 0908/2022, 11/25/2022, Additional history exists Cologuard 01/28/2025 01/28/2022, 01/08, 01/22/2022, Additional history exists Colorectal Cancer Screening 01/28/2025 Lipid Panel 01/24/2026 01/24/2021, 02/07, 02/24/2019, Additional history exists DXA Scan 05/13/2028 05/13/2021, 11/2020, 05/09/2019, Additional history exists DTap/Tdap Vaccines (3 - Td or Tdap) 02/22/2030 02/23/2020, 02/28/2009 Pneumococcal Vaccine: 65+ Years Completed 01/24/2021, 08/11/2019 HPV (Gardasil) Vaccine Aged Out No lo nger eligible based on patient's age to complete this topic Hepatitis B Vaccine Aged Out No longe r eligible based on patient's age to complete this topic MENINGOCOCCAL (MENACTRA/MENVEO) Aged Out No longer eligible based on patient's age to complete this topic documented as of this encounter Medical Devices Not on filedocumented as of this encounter Visit Diagnoses Diagnosis Skin exam, screening for cancer- Primary Screening for malignant neoplasm of the skin Seborrheic keratosis Other seborrheic keratosis Lentigines Other dyschromia Inflamed seborrheic keratosis Skin tag Unspecified hypertrophic and atrophic condition of skin documented in this encounter Care Teams Stencil Printer Relationship Specialty Start Date End Date Jo Ann Smith DO [address] [facility] [place] [phone] PCP - General Family Medicine 07/10/11 documented as of this encounter
--- OUTSIDE RECORDS SUMMARY | 2024-05-10 02:47 | External Medical Summary | Summary of Care ---
Author Name Unknown Organization [facility] Address [address] [place] [address] Phone [phone] Care Team Providers Care Grievance Manager Name Role Phone Jo Ann Smith DO Primary Care Provider [phone] Reason for Visit * Reason Comments Follow Up Patient here for a s kin check. Nothing real concerning, just bothersome, like skin tags. Encounter Details Date Type Department Care Team (Late st Contact Info) Description 04/14/2024 12:40 PM EDT [facility] [address] [facility] [place] [address] Sarah Fish PA-C [address] [facility] [place] [address] Skin exam, screening for cancer*; Seborrheic keratosis; [...] as of this encounter Progress Notes * Roberto Garcia MD - 04/14/2024 9:35 PM EDT I have reviewed the charting notes and orders and associated images and agree with the assessment and plan of Sarah Fish PA-C I was available for consultation during and after the visit Roberto Garcia MD 04/14/2024 9:35 PM * Sarah Fish PA-C - 04/14/2024 12:38 [...] 05/16/2024 10:40 AM EDT Office Visit Neurology [facility] [address] [place] [address] Broderick Weber MD [address] [place], [place] [address] 07/29/2024 9:50 AM EST Office Visit [facility] [address] [facility] [place], [place] [phone] Jo Ann Smith DO [address] [facility], [place] [address] 09/05/2024 10:00 AM EST Office Visit Ophthalmology, [facility] [address] [place] [address] Sebastien Cruz, [address] [facility] [place] [address] Health Maintenance Due Date Last Done Comments Hepatitis C Screening 1968 Colonoscopy 1995 Fecal Occult Blood Test 1995 Sigmoidoscopy 1995 Zoster Vaccines (1 of 2) 2000 Adult Wellness Visit 12/27/2022 12/27/2021 COVID-19 Vaccine ( season) 2024 11/25/2021, 06/06/2021, 10/12/2020, Additional history exists Influenza Vaccine (FLU shot) (#1) 2024 04/10/2023, 07/25/2022, 05/17/2021, Additional history exists Depression Screening 08/13/2024 08/13/2023, 10/15/19 18 Mammogram 09/21/2024 09/21/2023, 0202/2023, 09/16/2022, Additional history exists Albumin/Creatinine Ratio 10/09/2024 [...] Not on filedocumented as of this encounter Procedures Procedure Name Priority Date/Time Associated Diagnosis Comments DERM IMAGE (SITE) Routine 04/14/2024 Inflamed seborrheic keratosis Skin tag documented in this encounter Results * DERM IMAGE (SITE) (04/14/2024) 04/14/2024 Sarah Fish PA-C DIGITAL PHOTOGR APHY documented in this encounter Visit Diagnoses Diagnosis Skin exam, screening for cancer- Primary Screening for malignant neoplasm of the skin Seborrheic keratosis Other seborrheic keratosis Lentigines Other dyschromia Inflamed seborrheic keratosis Skin tag Unspecified hypertrophic and atrophic condition of skin documented in this encounter Care Teams Grievance Manager Relationship Specialty Start Date End Date Jo Ann Smith DO [address] [place] [address] PCP - General Family Medicine 07/10/11 documented as of this encounter
--- OUTSIDE RECORDS SUMMARY | 2024-05-10 02:47 | External Medical Summary | Summary of Care ---
Author Name Unknown Organization [facility] Address [address] [place] [address] Phone [phone] Care Team Providers Care Front Maker Name Role Phone Jo Ann Smith DO Primary Care Provider [phone] Reason for Visit * Reason Comments Follow Up Patient here for a s kin check. Nothing real concerning, just bothersome, like skin tags. Encounter Details Date Type Department Care Team (Late st Contact Info) Description 04/14/2024 12:40 PM EDT [facility] [address] [facility] [place] [address] Sarah Fish PA-C [address] [place] [address] Skin exam, screening for cancer*; Seborrheic keratosis; [...] 05/16/2024 10:40 AM EDT Office Visit Neurology [facility] [address] [facility] [place] [address] Broderick Weber MD [address] [place] [address] 07/29/2024 9:50 AM EST Office Visit [facility] [address] [place] [phone] Jo Ann Smith, DO [address] [place] [address] 09/05/2024 10:00 AM EST Office Visit Ophthalmology, [facility] [address] [facility] [place] [address] Sebastien Cruz, DO [address] [facility] [address] Health Maintenance Due Date Last Done Comments [...] skin documented in this encounter Care Teams Front Maker Relationship Specialty Start Date End Date Jo Ann Smith DO [address] [facility] [place] [address] PCP - General Family Medicine 07/10/11 documented as of this encounter
--- OUTSIDE RECORDS SUMMARY | 2024-05-10 02:47 | External Medical Summary | Summary of Care ---
Author Name Unknown Organization [facility] Address [address] [place] [address] Phone [phone] Care Team Providers Care Wire Frame Dipper Name Role Phone Savi Smith DO Primary Care Provider [phone] Reason for Visit * Reason Comments eRx-Medication Refill Encounter Details Date Type Department Care Team (Late st Contact Info) Description 03/09/2024 Refill [facility] [address] [place] [address] Savi Smith DO [address] [place] [address] Allergies Active Allergy Reactions Criticality Noted Date Comments Adhesive Tape Rash 11/17/2016 Gold Rash 11/17/2016 Nickel Rash 11/17/2016 Discoloration of skin documented as of this encounter (statuses as of 03/10/2024) Medications Medication Sig Dispensed Refills Start Date [...] Active Triamcinolone Acetonide 0.1 % External Cream (Aristocort)Indic ations:Bug bite, initial encounter Apply 2x daily (or more if itchy instead of scratching) to bites until resolved 45 g 04/08/2022 Active Carbidopa-Levodop a 25-100 MG Oral Tablet (Sinemet) TAKE 1 [...] Active Amantadine HCl 100 MG Oral Capsule (Symmetrel)Indica tions:Parkinson's disease (HCC) TAKE 1 CAPSULE BY MOUTH 3 TIMES DAILY 270 Capsule 12/31/2023 Active traZODone HCl 50 MG Oral Tablet (Desyrel)Indicati ons:Insomnia, unspecified type TAKE 1 TABLET BY MOUTH AT BEDTIME 90 Tablet 1 01/01/2024 Active Furosemide 20 MG Oral Tablet (Lasix)Indication s:Ankle edema, bilateral Take 1 Tablet by mouth daily as needed (swelling ankles). 30 Tablet 11 01/13/2024 Active Amoxicillin 500 MG Oral Capsule (Amoxil) 01/13/2024 Active Gabapentin 400 MG Oral Capsule (Neurontin) TAKE 1 CAPSULE BY MOUTH DAILY IN THE MORNING 90 Capsule 1 03/10/2024 Active Carbidopa-Levodop a ER 50-200 MG Oral Tablet Extended Release (Sinemet CR) TAKE 1 TABLET BY MOUTH AT BEDTIME 90 Tablet 03/10/2024 Active Carbidopa-Levodop a ER 50-200 MG Oral Tablet Extended Release (Sinemet CR) TAKE 1 TABLET BY MOUTH AT BEDTIME 90 Tablet 10/08/2023 Discontinued Gabapentin 400 MG Oral Capsule (Neurontin) TAKE 1 CAPSULE BY MOUTH DAILY IN THE MORNING 90 Capsule 1 10/22/2023 Discontinued documented as of this encounter (statuses as of 03/10/2024) Active Problems Problem Noted Date Diagnosed Date 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 Parkinson's disease 10/05/2017 HTN, goal below 150/90 10/26/2014 Menopause documented as of this encounter (statuses as of 03/10/2024) Resolved Problems Problem Noted Date Diagnosed Date [...] as of this encounter (statuses as of 03/10/2024) Immunizations Name Administration Dates Next Due COVID-19 [...] on file documented as of this encounter Miscellaneous Notes * Telephone Encounter - Savi Smith DO - 03/10/2024 11:46 AM EDTSigned Prescriptions: Disp Refills Gabapentin 400 MG Oral Capsule (Neurontin) 90 Cap*1 Sig: TAKE 1 CAPSULE BY MOUTH DAILY IN THE MORNING Authorizing Provider: SAVI SMITH Carbidopa-Levodopa ER 50-200 MG Oral Table*90 Tab*0 Sig: TAKE 1 TABLET BY MOUTH AT BEDTIME Authorizing Provider: SAVI SMITH -- * Telephone Encounter - Liborio Quispe [facility] - 03/10/2024 10:10 AM EDT Pending Prescriptions: Disp Refills Gabapentin 400 MG Oral Capsule 90 Cap*1 Sig: TAKE 1 CAPSULE BY MOUTH DAILY IN THE MORNING Carbidopa-Levodopa ER 50-200 MG Oral Table*90 Tab*0 Sig: TAKE 1 TABLET BY MOUTH AT BEDTIME * Telephone Encounter - Liborio Quispe RPh - 03/10/2024 10:10 AM EDT Pending Prescriptions: Disp Refills Gabapentin 400 MG Oral Capsule 90 Cap*1 Sig: TAKE 1 CAPSULE BY MOUTH DAILY IN THE MORNING Carbidopa-Levodopa ER 50-200 MG Oral Table*90 Tab*0 Sig: TAKE 1 TABLET BY MOUTH AT BEDTIME 01/13/2024 (in office), Visit date not found (telemedicine) 07/29/2024 If no future appointments scheduled, and last appointment is greater than a year ago, please schedule patient for a follow-up appointment Last date the medication was ordered: 10/22/23 Pharmacy: [facility] DELIVERY-[address] Is this request for a controlled substance?No Urine Drug Screen:No results found for this or any previous visit. Patient Phone Numbers Labs: Lab Results Component Value Date/Time CREAT 0.8 01/13/2024 09:34 AM CREAT 0.8 02/23/2020 10:23 AM POTASSIUM 4.3 01/13/2024 09:34 AM POTASSIUM 4.9 02/23/2020 10:23 AM TSH 1.54 01/05/2002 03:30 PM LDLCALC 129 01/24/2021 12:43 PM LDLCALC 134 (H) 02/23/2020 10:15 AM ALT 7 (L) 01/13/2024 09:34 AM ALT 7 (L) 02/23/2020 10:23 AM documented in this encounter Plan of Treatment Upcoming Encounters Date Type Department Care Team (Late st Contact Info) Description 04/14/2024 12:40 PM EDT Office Visit [facility] [address] [place] [address] Sarah Fish PA-C [address] [place] [address] 05/16/2024 10:40 AM EDT [facility] [address] [place] [address] Broderick Weber MD [address] [place] [address] 07/29/2024 9:50 AM EST Office Visit Family Practice, [place] [address] [place] [phone] Savi Smith [address] [place] [address] 09/05/2024 10:00 AM EST Office Visit Ophthalmology, [facility] [address] [facility] [place] [address] Sebastien Cruz, [address] [place] [address] Health Maintenance Due Date Last Done Comments Hepatitis C Screening 1968 Colonoscopy 1995 Fecal Occult Blood Test 1995 Sigmoidoscopy 1995 Zoster Vaccines (1 of 2) 2000 COVID-19 Vaccine ( season) 2023 11/25/2021, 06/06/2021, 10/12/2020, Additional history exists Influenza [...] Not on filedocumented as of this encounter Care Teams Wire Frame Dipper Relationship Specialty Start Date End Date Savi Smith DO [address] [place] [address] PCP - General Family Medicine 07/10/11 documented as of this encounter
--- OUTSIDE RECORDS SUMMARY | 2024-05-10 02:47 | External Medical Summary | Summary of Care ---
Author Name Unknown Organization [facility] Address [address] [place] [address] Phone [phone] Care Team Providers Care Knife Sharpener Name Role Phone Jo Ann Smith DO Primary Care Provider [phone] Reason for Visit * Reason Comments Follow Up Patient here for a s kin check. Nothing real concerning, just bothersome, like skin tags. Encounter Details Date Type Department Care Team (Late st Contact Info) Description 04/14/2024 12:40 PM EDT [facility] [address] [facility] [place] [address] Sarah Fish PA-C [address] [facility] [place] [address] Skin exam, screening for cancer*; Seborrheic keratosis; [...] 05/16/2024 10:40 AM EDT Office Visit Neurology [facility] [address] [facility] [place] [address] Broderick Weber MD [address] [facility] [place] [address] 07/29/2024 9:50 AM EST Office Visit [facility] [address] [place] [phone] Jo Ann Smith, DO [address] [place] [address] 09/05/2024 10:00 AM EST Office Visit Ophthalmology, [facility] [address] [facility] [address] [address] Sebastien Cruz, DO [address] [facility] [address] Health Maintenance Due Date Last Done Comments [...] skin documented in this encounter Care Teams Knife Sharpener Relationship Specialty Start Date End Date Jo Ann Smith DO [address] [facility] [place] [address] PCP - General Family Medicine 07/10/11 documented as of this encounter
--- OUTSIDE RECORDS SUMMARY | 2024-05-10 02:47 | External Medical Summary | Summary of Care ---
Author Name Unknown Organization [facility] Address [address] [place] [address] Phone [phone] Care Team Providers Care Help Desk Supervisor Name Role Phone Jo Ann Smith DO Primary Care Provider [phone] Reason for Visit * Reason Comments Follow Up Encounter Details Date Type Department Care Team (Latest Contact Info) Description 02/08/2024 11:20 AM EDT Office Visit Neurology [facility] [address] [facility] [place] [address] Broderick Weber MD [address] [place] [address] Parkinson's disease with dyskinesia and fluctuating manifestations (HCC)* Allergies Active Allergy Reactions Criticality Noted Date Comments Adhesive Tape Rash 11/17/2016 Gold Rash 11/17/2016 Nickel Rash 11/17/2016 Discoloration of skin documented as of this encounter (statuses as of 02/12/2024) Medications Medication Sig Dispensed Refills Start Date [...] 500 MG Oral Capsule (Amoxil) 01/13/2024 Active Zoster Vac Recomb Adjuvanted 50 MCG/0.5ML Intramuscular Suspension Reconstituted (Shingrix)Indicatio ns:Need for vaccination for zoster Inject 0.5 mL into a large muscle now and repeat dose in 60 to 180 days 1 Each 1 01/24/2021 4 Discontinue d(Medicatio n List Clean Up) documented as of this encounter (statuses as of 02/12/2024) Active Problems Problem Noted Date Diagnosed Date 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 Parkinson's disease 10/05/2017 HTN, goal below 150/90 10/26/2014 Menopause documented as of this encounter (statuses as of 02/12/2024) Resolved Problems Problem Noted Date Diagnosed Date [...] as of this encounter (statuses as of 02/12/2024) Immunizations Name Administration Dates Next Due COVID-19 [...] Sign Reading Time Taken Comments Blood Pressure 136/76 02/08/2024 11:17 AM EDT Pulse 74 02/08/2024 11:17 AM EDT Temperature 35.8 C (96.4 F) 02/08/2024 11:17 AM E DT Respiratory Rate 16 02/08/2024 11:17 AM EDT Oxygen Saturation - - Inhaled Oxygen Concentration - - Weight - - Height - - Body Mass Index - - documented in this encounter Progress Notes * Broderick Weber MD - 02/08/2024 12:12 PM EDT CLINIC NOTES Neurology [address] [place] [address] [facility] [address] Marifer Iqbal [id number] NEUROLOGY OUTPATIENT NOTE 02/08/2024 HISTORY: Marifer returns today with her [id number] who provides additional history and observations of how she has been doing since I last saw her 4 months ago. Marifer was 1st diagnosed with Parkinson's of unilateral type predominantly involving left arm leg about 25 years ago and was started initially on dopamine agonists did reasonably well but then we switched her back to Sinemet and over the years have reached a dose of Sinemet 25/100 1 tablet 4 times aday combined with the extended release 50/200 tablets at bedtime and a half of a 0.5 mg rasagiline in the morning She has variably severe dyskinesias is always had the but today they seem to be in better control. I saw her about 11 30 in the morning and she had taken a pill at 9 and if anything she looked a little on the border of being a bradykinetic and while in the office there was very little or any dyskinesias save of her neck muscles. She certainly had more prominent dyskinesias in visits in the past and her [id number] says that they really have not been too bad she has not had any freezing episodes she has not had need to take an extra half of a regular Sinemet to keep her going for activities She does talk about hallucinations which are benign often consist of animals are bugs and she realizes that most of these are not real but she has acted on some of the in the past. She has a lot of oriented rugs and a times designed appears to have a different pattern mimicking a spill or tear and she is found herself trying to repair things that really are not damaged or to remove stains that are there At night I think she is having some REM behavior issues but she lives alone and no one knows if sheshouts out or anything like that but she is found herself out of bed and talks about having at times frightening dreams. 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 HTN, goal below 130/80 loses some of eyesight when bp too high Menopause in 40s Personal history of radiation therapy 2017 Past Surgical History: Procedure Laterality Date BREAST LESION,OTHER,EXCISION Left 12/17/2016 EXCISION OF CYST OR TUMOR BREAST performed by Valeria Marin MD at OR [facility] COLONOSCOPY 02/14 Dr aponte- 10 years EXC BREAST LESION RADMARK Left 11/25/2016 EXCISION OF BREAST LESION RADIOLOGICAL MARKER performed by Valeria Marin MD at [facility] MASTECTOMY, PARTIAL Left 11/25/2017 Re-excision 12/17/2016 Social History Socioeconomic History Marital status: Spouse name: Not on file Number of children: Not on file Years of education: Not on file Highest education level: Not on file Occupational History Not on file Tobacco Use Smoking status: Never Passive exposure: Never Smokeless tobacco: Never Tobacco comments: No passive smoke exposure Vaping Use Vaping status: Never Used Substance and Sexual Activity Alcohol use: No Drug use: No Comment: 2 cups coffee in am Sexual activity: Yes Partners: Male Comment: no problems Other Topics Concern Not on file Social History Narrative job: n/a employer: n/a education: Masters+ service: no hobbies/interests: art transfusions: no exercise: Did until back problems diet: no voodoo/sikh: Janis marital status: 1970 children: 2 gc: 2 girls ggc: 0 pets: cat exposure to violence/threats/abuse:no things to improve: health Social Determinants of Health Financial Resource Strain: Not on file Food Insecurity: No Food Insecurity (02/23/2020) Hunger Vital Sign Worried About Running Out of Food in the Last Year: Never true Ran Out of Food in the Last Year: Never true Transportation Needs: Not on file Social Connections: Unknown (02/08/2024) Social Connections How often do you feel lonely or isolated from those around you? (Adult - for ages 18 years and over): Not on file Housing Stability: Not on file Family History Problem Relation Name Age of Onset Cancer Father prostate- 91 Heart Disorder Mother coumadin for AF Diabetes None Hypertension None Mental Disorder None Stroke None Current Outpatient Medications Medication Sig Dispense Refill [...] 11 Amoxicillin 500 MG Oral Capsule (Amoxil) No current facility-administered medications for this visit. Review of patient's allergies indicates: Allergen Reactions Adhesive Tape Rash Gold Rash Nickel Rash Discoloration of skin REVIEW OF SYSTEMS: With the exception of historical items included in the history of present illness above, a 12-point systems review was normal. PHYSICAL EXAM: BP 136/76 (BP Site: Right Arm, BP Position: Sitting, BP Cuff Size: Regular) | Pulse 74 | Temp 35.8 C (96.4 F) (Tympanic) | Resp 16 She is awake alert oriented there is a little dyskinetic movements of her head and neck this occasional facial grimacing there is some random mildly dyskinetic movements of the hands but by and largeshe is pretty calm when seated and when walking she looks fairly stable there is very little dyskinetic movements save for the head and neck and her arm swing is only slightly reduced. I really do not see any tremor do not bring on any real significant cogwheeling and reflexes strength testing and sensation remain essentially unchanged in largely normal I did observe her for 30 minutes in the office today she was due for medication in fact overdue andafter she took the pill I did not notice any immediate dyskinesias and she looked virtually unchanged and was quite ambulatory LABORATORY: No laboratory studies are needed IMAGING: No imaging is needed ASSESSMENT AND PLAN: Longstanding Parkinson's disease on relatively low doses of dopamine some rasagiline and with now the emergence of some benign hallucinations and perhaps a REM behavior disorder issue Plan is to continue the current medication doses without change but had little melatonin 3 mg at bedtime and see her back in 3 months. I have asked her to let me know by e-mail if the melatonin has had the fact on the nocturnal hallucinations and possible REM behavior and we may actually increase the dose slowly up to 9-12 mg on an outpatient basis before next see her in 3 months I spent 25-30 minutes reviewing the chart discussing her case with the patient's [id number] the patient herself examining her reviewing her records etcetera The above note was generated utilizing voice recognition technology may have spelling errors punctuation errors pronoun usage errors and syntax errors Broderick Weber MD documented in this encounter Nursing Notes * Almaz Gamez LPN - 02/08/2024 11:15 AM EDT Patient verified identity by spelling of last name and date. Chief Complaint Patient presents with Follow Up documented in this encounter Plan of Treatment Upcoming Encounters Date Type Department Care Team (Late st Contact Info) Description 04/14/2024 12:40 PM EDT Office Visit Dermatology [facility] [place] [address] [place] [address] Sarah Fish PA-C [address] [place] [address] 05/16/2024 10:40 AM EDT Office Visit Neurology [facility] [place] [address] [place] [address] Broderick Weber MD [address] [place] [address] 07/29/2024 9:50 AM EST Office Visit [facility] [address] [place] [phone] Jo Ann Smith, DO [address] [place] [address] 09/05/2024 10:00 AM EST Office Visit Ophthalmology, [facility] [address] [facility] [address] [address] Sebastien Cruz, DO [address] [place] [address] Health Maintenance Due Date Last Done Comments [...] encounter Visit Diagnoses Diagnosis Parkinson's disease with dyskinesia and fluctuating manifestations (HCC)- Primary documented in this encounter Care Teams Help Desk Supervisor Relationship Specialty Start Date End Date Jo Ann Smith DO [address] [place] [address] PCP - General Family Medicine 07/10/11 documented as of this encounter"
--- OUTSIDE RECORDS SUMMARY | 2024-05-10 02:48 | External Medical Summary | Summary of Care ---
Author Name Unknown Organization [facility] Address [address] [place] [address] Phone [phone] Care Team Providers Care Celery Tier Name Role Phone Savi Smith DO Primary Care Provider [phone] Reason for Visit * Reason Comments eRx-Medication Refill Encounter Details Date Type Department Care Team (Late st Contact Info) Description 12/31/2023 Refill [facility] [address] [place] [address] Savi Smith DO [address] [place] [address] Encounter for long-term (current) use of medications*; Insomnia, unspecified type Allergies Active Allergy Reactions Criticality Noted Date Comments Adhesive Tape Rash 11/17/2016 Gold Rash 11/17/2016 Nickel Rash 11/17/2016 Discoloration of skin documented as of this encounter (statuses as of 01/01/2024) Medications Medication Sig Dispensed Refills Start Date End Date Status Calcium 500 MG Tablet Take 3 Tablets by mouth in the morning. 1 Tab 7 Active Cholecalciferol (VITAMIN D3) 1000 units CAPS Take 1 Cap by mouth once for 1 dose. 1 Cap 7 Active docusate sodium (COLACE) 100 MG Capsule Take 1 Capsule by mouth in the morning and 1 Capsule before bedtime. 60 Cap 5 8 Active Polyethylene Glycol 3350 17 GM/SCOOP Oral Powder Take 17 g by mouth in the morning. 255 g 8 Active Sennosides 8.6 MG Capsule Take 1 Capsule by mouth in the morning. 1 Cap 8 Active acetaminophen (TYLENOL) 500 MG Tablet Take 1 Tablet by mouth every 4 hours as needed for Pain. Active Zoster Vac Recomb Adjuvanted 50 MCG/0.5ML Intramuscular Suspension Reconstituted (Shingrix)Indicati ons:Need for vaccination for zoster Inject 0.5 mL into a large muscle now and repeat dose in 60 to 180 days 1 Each 1 1 Active Additional Information Patient not taking.Reported on 06/01/2023 Triamcinolone Acetonide 0.1 % External Cream (Aristocort)Indica tions:Bug bite, initial encounter Apply 2x daily (or more if itchy instead of scratching) to bites until resolved 45 g 2 Active Additional Information Patient not taking.Reported on 02/16/2023 Carbidopa-Levodopa 25-100 MG Oral Tablet (Sinemet) TAKE 1 TABLET BY MOUTH 4 TIMES DAILY AND 1/2 TO 1 TABLET BY MOUTH EXTRA NEEDED 450 Tablet 4 Active Carbidopa-Levodopa ER 50-200 MG Oral Tablet Extended Release (Sinemet CR) TAKE 1 TABLET BY MOUTH AT BEDTIME 90 Tablet 4 Active Gabapentin 600 MG Oral Tablet (Neurontin) TAKE 1 TABLET BY MOUTH IN THE AFTERNOON AND AT NIGHT 180 Tablet 1 4 Active Gabapentin 400 MG Oral Capsule (Neurontin) TAKE 1 CAPSULE BY MOUTH DAILY IN THE MORNING 90 Capsule 1 4 Active Meloxicam 7.5 MG Oral Tablet Take 1 Tablet by mouth in the morning. for pain.. 90 Tablet 3 4 Active Rasagiline Mesylate 0.5 MG Oral Tablet (Azilect) One half pill orally daily 90 Tablet 3 4 Active Amantadine HCl 100 MG Oral Capsule (Symmetrel)Indicat ions:Parkinson's disease (HCC) TAKE 1 CAPSULE BY MOUTH 3 TIMES DAILY 270 Capsule 4 Active traZODone HCl 50 MG Oral Tablet (Desyrel)Indicatio ns:Insomnia, unspecified type TAKE 1 TABLET BY MOUTH AT BEDTIME 90 Tablet 1 4 Active traZODone HCl 50 MG Oral Tablet (Desyrel)Indicatio ns:Insomnia, unspecified type Take 1 Tablet by mouth at bedtime. 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 Parkinson's disease 10/05/2017 HTN, goal below 150/90 10/26/2014 Menopause documented as of this encounter (statuses as of 01/01/2024) Resolved Problems Problem Noted Date Diagnosed Date [...] as of this encounter (statuses as of 01/01/2024) Immunizations Name Administration Dates Next Due COVID-19 [...] Preserve, Inj 05/10/2014,06/04/2011,07/07/2010 TD, Preservative Free 02/23/2020 TDAP (age 11 and older)(Adacel) 02/28/2009 documented as of this encounter Social [...] encounter Miscellaneous Notes * Telephone Encounter - Melisa Negro [facility] - 01/01/2024 6:15 AM EDTSigned Prescriptions: Disp Refills traZODone HCl 50 MG Oral Tablet (Desyrel) 90 Tab*1 Sig: TAKE 1 TABLET BY MOUTH AT BEDTIMEAuthorizing Provider: SAVI SMITH User: MELISA NEGRO------- * Telephone Encounter - Melisa Negro [facility] - 01/01/2024 6:14 AM EDT Provided 90 days supply with 1 refill(s) until next routine labs will approximately be drawn. Per refill protocol patient should have AST/ALT on file within past year. Reviewed AMP report, Care Gaps/Health Maintenance, medications list, and for any routine labs typically ordered for this patient. Lab orders placed. Patient can complete labs with next routine lab work. Thank You, Melisa Negro [facility] Clinical Pharmacist [facility] ([facility] ([facility]) [phone] 01/01/2024, 6:14 AM documented in this encounter Plan of Treatment Upcoming Encounters Date Type Department Care Team (Late st Contact Info) Description 01/13/2024 8:30 AM EDT Office Visit [facility] [address] [place] [phone] Savi Smith DO [address] [place] [address] 02/08/2024 11:20 AM EDT Office Visit Neurology [facility] [address] [place] [address] Broderick Weber MD [address] [place] [address] 04/14/2024 12:40 PM EDT Office Visit Dermatology [facility] [address] [place] [address] Sarah Fish PA-C [address] [facility] [place] [address] Scheduled Orders Name Type Priority Associated Diagnoses Orde r Schedule COMPREHENSIVE METABOLIC PANEL Lab Routine Encounter for long-term (current) use of medications Expected: 01/01/2024 (Approximate), Expires: 12/31/2024 Health Maintenance Due Date Last Done Comments [...] as of this encounter Visit Diagnoses Diagnosis Encounter for long-term (current) use of medications- Primary Encounter for long-term (current) use of other medications Insomnia, unspecified type documented in this encounter Care Teams Celery Tier Relationship Specialty Start Date End Date Savi Smith DO [address] [place] [address] PCP - General Family Medicine 07/10/11 documented as of this encounter
--- OUTSIDE RECORDS SUMMARY | 2024-05-10 02:48 | External Medical Summary | Summary of Care ---
Author Name Unknown Organization [facility] Address [address] [place] [address] Phone [phone] Care Team Providers Care Health And Safety Technician Name Role Phone Jo Ann Smith DO Primary Care Provider [phone] Reason for Visit * Reason Comments Outpatient Testing Encounter Details Date Type Department Care Team (Late st Contact Info) Description 01/13/2024 9:40 AM EDT Laboratory Laboratory, [place] [address] [place] [address] [place] [address] [place] [address] [employer] Other*[id number]; Encounter for long-term (current) use of medications; HTN, goal below 150/90 Allergies Active Allergy [...] 2:36 PM EDT Sexual Orientation Straight 02/23/2020 8 :57 AM EDT Job Start Date Occupation Industry Not on file Not on file Not on file documented as of this encounter Plan of Treatment Upcoming Encounters Date Type Department Care Team (Late st Contact Info) Description 02/08/2024 11:20 AM EDT Office Visit Neurology [facility] [address] [place] [address] Broderick Weber MD [address] [place] [address] 04/14/2024 12:40 PM EDT Office Visit Dermatology [facility] [address] [place] [address] Sarah Fish PA-C [facility] [place] [phone] 07/29/2024 9:50 AM EST Office Visit [address] [place] [phone] Jo Ann Smith DO [address] [facility] [place] [address] Pending Results Name Type Priority Associated Diagnoses Date /Time MYCODE SUBSEQUENT ADULT Lab Routine [employer] Other*[id number] 01/13/2024 9:34 AM EDT HGB Lab Routine Encounter for long-term (current) use of medications 01/13/2024 9:34 AM EDT COMPREHENSIVE METABOLIC PANEL Lab Routine Encounter for long-term (current) use of medications 01/13/2024 9:34 AM EDT MYCODE SST1 Lab Routine [employer] Other*[id number] 01/13/2024 9:34 AM EDT MYCODE SST2 Lab Routine [employer] Other*[id number] 01/13/2024 9:34 AM EDT Health Maintenance Due Date Last Done Comments [...] as of this encounter Visit Diagnoses Diagnosis [employer] Other*[id number] Encounter for long-term (current) use of medications Encounter for long-term (current) use of other medications HTN, goal below 150/90 documented in this encounter Care Teams Health And Safety Technician Relationship Specialty Start Date End Date Jo Ann Smith DO [address] [place] [address] PCP - General Family Medicine 07/10/11 documented as of this encounter
--- OUTSIDE RECORDS SUMMARY | 2024-05-10 02:48 | External Medical Summary ---
Author Name Unknown Address Unknown Organization K01:[facility] [place] [address] [place] [address] Laboratory Report Ordering Provider Test Date Status RUTHY SALGUERO 01/13/2024 09:34:47 Final Observation Date Value Abnormality Reference (Units ) Status MYCODE SPECIMEN-SST 01/13/2024 09:34:47 Freezing of extracted DNA, whole blood and/or serum. Final Performing Location [facility] [place] [address] [place] [address]
--- OUTSIDE RECORDS SUMMARY | 2024-05-10 02:48 | External Medical Summary | Summary of Care ---
Author Name Unknown Organization [facility] Address [address] [place] [address] Phone [phone] Care Team Providers Care Child Life Specialist Name Role Phone Jo Ann Smith DO Primary Care Provider [phone] Reason for Visit * Reason Comments eRx-Medication Refill Encounter Details Date Type Department Care Team (Late st Contact Info) Description 12/31/2023 Refill Neurology [facility] [address] [place] [address] Narciso Allred MD [address] [place] [address] Parkinson's disease (HCC) Allergies Active Allergy Reactions Criticality Noted Date Comments Adhesive Tape Rash 11/17/2016 Gold Rash 11/17/2016 Nickel Rash 11/17/2016 Discoloration of skin documented as of this encounter (statuses as of 12/31/2023) Medications Medication Sig Dispensed Refills Start Date [...] Additional Information Patient not taking.Reported on 02/16/2023 traZODone HCl 50 MG Oral Tablet (Desyrel)Indicatio ns:Insomnia, unspecified type Take 1 Tablet by mouth at bedtime. 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 Parkinson's disease 10/05/2017 HTN, goal below 150/90 10/26/2014 Menopause documented as of this encounter (statuses as of 12/31/2023) Resolved Problems Problem Noted Date Diagnosed Date [...] as of this encounter (statuses as of 12/31/2023) Immunizations Name Administration Dates Next Due COVID-19 [...] encounter Miscellaneous Notes * Telephone Encounter - Argenis Tomas RPh - 12/31/2023 1:40 PM EDT Signed Prescriptions: Disp Refills Amantadine HCl 100 MG Oral Capsule (Symmet*270 Ca*0 Sig: TAKE 1 CAPSULE BY MOUTH 3 TIMES DAILYAuthorizing Provider: NARCISO ALLRED User: ARGENIS TOMAS * Telephone Encounter - Argenis Tomas RPh - 12/31/2023 1:39 PM EDT RX authorized. Zero refills given until upcoming appt. 02/08/2024 Thank you, Argenis Tomas, PharmD Clinical Pharmacist [facility] ([facility]) (formerly [facility]) 12/31/23 1:39 PM [phone] documented in this encounter Plan of Treatment Upcoming Encounters Date Type Department Care Team (Late st Contact Info) Description 01/13/2024 8:30 AM EDT Office Visit Family Practice, [place] [address] [place] [facility] [phone] Jo Ann Smith DO [address] [place] [address] 02/08/2024 11:20 AM EDT Office Visit Neurology [facility] [address] [facility] [place] [address] Narciso Allred MD [address] [facility] [place] [address] 04/14/2024 12:40 PM EDT Office Visit Dermatology [facility] [address] [facility] [place] [address] Sarah Fish PA-C [address] [facility] [place] [address] Health Maintenance Due Date Last Done Comments [...] this encounter Visit Diagnoses Diagnosis Parkinson's disease (HCC) Paralysis agitans documented in this encounter Care Teams Child Life Specialist Relationship Specialty Start Date End Date Jo Ann Smith DO [address] [place] [address] PCP - General Family Medicine 07/10/11 documented as of this encounter
--- OUTSIDE RECORDS SUMMARY | 2024-05-10 02:48 | External Medical Summary ---
Author Name Unknown Address Unknown Organization K01:[facility]ATORY [facility] [place] - [address] [place] [address] Laboratory Report Ordering Provider Test Date Status RUTHY SALGUERO 01/13/2024 09:34:47 Final Observation Date Value Abnormality Reference (Units ) Status MYCODE SPECIMEN-SST 01/13/2024 09:34:47 Freezing of extracted DNA, whole blood and/or serum. Final Performing Location LAB[facility]ATORY [facility] [place] - [address] [place] [address]
--- OUTSIDE RECORDS SUMMARY | 2024-05-10 02:48 | External Medical Summary ---
Author Name Unknown Address Unknown Organization K01:[facility]ATORY [facility] [place] - [address] [place] [address] Laboratory Report Ordering Provider Test Date Status ANGEAIDAWILLIAM 01/13/2024 09:34:47 Final Observation Date Value Abnormality Reference (Units ) Status Hemoglobin 01/13/2024 09:34:47 13.6 12.0-15.3 (g/dL) Final Performing Location [facility]ORY [facility] - [address] [facility] [address]
--- OUTSIDE RECORDS SUMMARY | 2024-05-10 02:48 | External Medical Summary | Summary of Care ---
Author Name Unknown Organization [facility] Address [address] [place] [address] Phone [phone] Care Team Providers Care Court Reporter Name Role Phone Jo Ann Smith DO Primary Care Provider [phone] Encounter Details Date Type Department Care Team (Late st Contact Info) Description 01/05/2024 Orders Only PATIENT PORTAL DO NOT DELETE [facility] [address] Allergies Active Allergy Reactions Criticality Noted Date Comments Adhesive Tape Rash 11/17/2016 Gold Rash 11/17/2016 Nickel Rash 11/17/2016 Discoloration of skin documented as of this encounter (statuses as of 01/05/2024) Medications Medication Sig Dispensed Refills Start Date [...] AT BEDTIME 90 Tablet 1 01/01/2024 Active documented as of this encounter (statuses as of 01/05/2024) Active Problems Problem Noted Date Diagnosed Date 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 Parkinson's disease 10/05/2017 HTN, goal below 150/90 10/26/2014 Menopause documented as of this encounter (statuses as of 01/05/2024) Resolved Problems Problem Noted Date Diagnosed Date [...] as of this encounter (statuses as of 01/05/2024) Immunizations Name Administration Dates Next Due COVID-19 [...] Description 01/13/2024 8:30 AM EDT Office Visit [facility] [address] [place] [phone] Jo Ann Smith DO [address] [place] [address] 02/08/2024 11:20 AM EDT Office Visit Neurology [facility] [address] [place] [address] Broderick Weber MD [address] [facility] [place] [address] 04/14/2024 12:40 PM EDT Office Visit Dermatology [facility] [address] [place] [address] Sarah Fish PA-C [address] [facility] [place] [address] Health Maintenance Due Date [...] filedocumented as of this encounter Care Teams Court Reporter Relationship Specialty Start Date End Date Jo Ann Smith DO [address] [place] [address] PCP - General Family Medicine 07/10/11 documented as of this encounter
[2024-05-10] MEDS: ceFAZolin 2000MG 2,000 MG/15 ML SYR IV SCH (07:48)
[2024-05-10] MEDS: CARBIDOPA/LEVODOPA 25/100MG TAB PO SCH (08:18)
[2024-05-10] MEDS: CHOLECALCIFEROL 25 MCG (1000 UNITS) TAB PO SCH (08:19)
[2024-05-10] MEDS: GABAPENTIN 400 MG CAP PO SCH (08:21)
[2024-05-10] MEDS: SENNA 8.6 MG TAB PO SCH (08:23)
[2024-05-10] MEDS: CALCIUM CARBONATE 500 MG CHEWABLE TAB PO SCH (08:51)
[2024-05-10] MEDS ORDERED: RASAGILINE 0.5 MG PO SCH (09:00)
[2024-05-10] MEDS: cefTRIAXone SODIUM 2,000 MG/50 ML BAG IV SCH (09:11)
[2024-05-10 09:40] LABS: Hematocrit (blood only) 33.7 % (37.0-47.0); Hemoglobin 11.6 g/dl (12.0-16.0); Mean Corpuscular Hemoglobin 31.4 pg (25.0-34.0); Mean Corpuscular Hgb Conc 34.4 g/dL (32.0-36.0); Mean Corpuscular Volume 91.1 fL (80.0-100.0); Platelet Count 168 K/uL (130-400); RDW Coefficient of Variation 13.1 % (11.5-14.5); RDW Standard Deviation 43.5 fL (36.4-46.3); White Blood Count 5.82 K/ul (4.8-10.8)
[2024-05-10 10:45] LABS: BUN Creatinine Ratio 20.5 (10-20); Creatinine Clr Calc Pharmacy 66.7 ml/min; Est GFR (African American) 94.7 ml/min; Est GFR (Non-African American) 81.7 ml/min
--- NOTE | 2024-05-10 10:50 | Orthopedic Consultation ---
Date of Service May 10, 2024 Assessment & Plan (1) Subcapital fracture of left hip: 73-year-old female with significant underlying Parkinson's disease status post a fall with a left subcapital hip fracture. No pre-existing hip arthritis. She has been admitted by the medicine service and medically optimized. Plan: We discussed treatment options with the patient as well as her son. In my opinion the best treatment for this is a cemented bipolar hip arthroplasty. We can plan on doing this later today. The risks Mente this procedure explained and she understands. Certainly with her Parkinson's she is at increased risk of this dislocation and will try and minimize this risk is much as possible. All questions were answered. Will plan on doing this later today. (2) Parkinson disease: (3) Intraductal carcinoma of left breast: History of Present Illness Reason for Consultation: . Left subcapital hip fracture. Requesting Physician: . Attending Physician: Carolyn Casas MD . Patient is a 73-year-old female with with significant underlying Parkinson disease and well-known to me from previous right knee replacement and subsequent revision several years ago. She got progressive Parkinson's disease. She was getting up and got dizzy yesterday and lost her balance and fell. Acute onset o f pain. She was unable to ambulate afterwards. She brought the emergency room x-rays were left subcapital hip fracture. She has been admitted by the medicine service. Were consulted for treatment. No pre-existing hip pain on this side. Denies any other injuries. Allergies Allergy/AdvReac Type Severity Reaction Status Date / Time adhesive Allergy Mild Rash Verified 10/01/21 14:41 Gold Salts Allergy Mild Rash Verified 10/01/21 14:41 nickel Allergy Mild Discolors Verified 10/01/21 14:41 skin Home Medications Medication Instructions Recorded Confirmed Type carbidopa 25 mg-levodopa 100 mg 1 tab PO QID 04/21/18 05/09/24 History tablet (Sinemet) cholecalciferol (vitamin D3) 25 1,000 units PO QAM 04/21/18 05/09/24 History mcg (1,000 unit) capsule carbidopa 50 mg-levodopa 200 1 tab PO HS 09/21/18 05/09/24 History mg-entacapone 200 mg tablet acetaminophen 500 mg tablet 500 mg PO Q6H PRN Pain 05/24/19 05/09/24 History (Tylenol Extra Strength) docusate sodium 100 mg capsule 100 mg PO BID 05/24/19 05/09/24 History (Colace) gabapentin 400 mg capsule 400 mg PO QAM #30 caps 05/24/19 05/09/24 Rx gabapentin 600 mg tablet 600 mg PO BID 09/28/19 05/09/24 History polyethylene glycol 3350 17 gram 17 g PO QPM 04/23/20 05/09/24 History oral powder packet (Miralax) trazodone 50 mg tablet 50 mg PO HS 04/23/20 05/09/24 History amantadine HCl 100 mg tablet 100 mg PO TID 10/01/21 05/09/24 History calcium carbonate 1,500 mg PO DAILY 10/01/21 05/09/24 History rasagiline 0.5 mg tablet (Azilect) 0.25 mg PO QAM 10/01/21 05/09/24 History sennosides 8.6 mg tablet 8.6 mg PO QAM 10/01/21 05/09/24 History amoxicillin 500 mg capsule 2,000 mg (4 x 500 mg) PO ONCE #4 11/06/22 05/09/24 Rx caps meloxicam 7.5 mg tablet 7.5 mg PO QAM 05/09/24 05/09/24 History Past Med/Surg History Problem List Fall (Acute) Subcapital fracture of left hip (Acute) Fall Subcapital fracture of left hip Left knee DJD Greater trochanteric bursitis of right hip Lumbar spondylosis Hip bursitis, left Status post revision of total replacement of right knee Intraductal carcinoma of left breast (Chronic 11/25/16) Parkinson disease Intractable neuropathic pain of lower extremity (Chronic) Right knee DJD Encounter for preoperative screening laboratory testing for COVID-19 virus Status post total knee replacement, right Right knee pain Sciatica Right knee dislocation History of lumbar fusion L4-S1 10/[address] Martel Status post left breast lumpectomy History of breast cancer (Chronic) Dx'ed 2017- s/p lumpectomy and XRT - no current issues Parkinsons disease (Chronic) DX'D 1999-F/U DR ALLRED- [place] SIDE AFFECTED >L SIDE Medical History Encounter for pre-operative examination Urinary incontinence MILD Encounter for pre-operative examination SOB (shortness of breath) on exertion "OUT OF SHAPE"-DOES NOT EXERCISE PER PT Cardiac murmur " A BABY"- HAS SINCE RESOLVED Surgical History History of total knee replacement RT History of breast surgery Re-incision surgery to remove additional margins after lumpectomy H/O breast biopsy LEFT History of colonoscopy Family History Mother Family hx of colon cancer Social History Smoking Status: Never smoker Second Hand Exposure: Yes (SPOUSE USED TO SMOKE); Do You Dip or Chew Tobacco: No; Hx Alcohol Use: Yes Alcohol type: wine Hx Substance Use: No Preferred Language: French Communication Ability: Effective Visual Impairment: No Limitations Hearing Ability: Normal Trestle Mechanic Required: No Beliefs That Will Affect Care: None marital status: Current Living Situation: Alone current occupational status: retired Other Information That Helps Us Care for You: No Feels Safe at Home: Yes Assistive Devices: Cane Review of Systems All systems reviewed & are unremarkable except as noted in HPI & below. Physical Exam . Physical examination is a pleasant elderly female. She is awake alert and oriented. Examination reveals her to be lying in bed. She looks reasonably comfortable. Her left leg is shortened and externally rotated. She is got marked pain with any type of hip motion. No bruising swelling. No knee effusion. She is neurologically intact. Results & Data Results & Data Laboratory Results . Diagnostic Findings . X-rays of the left hip reveal displaced subcapital femoral neck fracture. Diagnosing underlying hip arthritis. No underlying bone pathology. PG Care Time/CCT Total # of Minutes Spent Total Time Spent with Patient: Total time spent is greater than 50% in coordination of care (as documented) at patient's floor/unit and/or counseling patient: Coding Level of Care Code 14498 IN/OBS CONSULT LVL 5,80M Diagnoses Subcapital fracture of left hip S72.012A Encounter type: initial encounter Fracture type: closed Parkinson disease G20 Intraductal carcinoma of left breast D05.12 (1) Subcapital fracture of left hip Encounter type: initial encounter Fracture type: closed Qualified Code(s): S72.012A - Unspecified intracapsular fracture of left femur, initial encounter for closed fracture
[2024-05-10] MEDS ORDERED: HYDROmorphone INJ 1 MG/ML SYRINGE IV PRN (13:17)
[2024-05-10] MEDS ORDERED: ONDANSETRON INJ 2 MG/ML 2 ML VIAL IV PRN (13:17)
[2024-05-10] MEDS ORDERED: fentaNYL citrate PF 100 MCG/2 ML VIAL ONE (13:17)
[2024-05-10] MEDS ORDERED: ePHEDrine sulfate 50 MG/ML AMP IV PRN (13:17)
[2024-05-10] MEDS ORDERED: fentaNYL citrate PF 100 MCG/2 ML VIAL IV PRN (13:17)
[2024-05-10] MEDS ORDERED: ATROPINE SULFATE 0.1 MG/ML 10ML SYR IV PRN (13:17)
--- NOTE | 2024-05-10 13:20 | Anesthesiology Consultation ---
Date of Service May 10, 2024 Assessment & Plan Chart Review Chart Review: Acceptable Risk for Surgery Consults Requested none ASA ASA3 Proposed Anesthesia Anesthesia Type: Spinal Regional Laterality: Left Risk / Benefits Reviewed With: PT / POA / Parent / Guardian, Accepts Plan and Informed Consent Obtained History Surgery Operation Date: 05/10/24 07:00 Proposed Procedures p Left Cemented Bipolar - Andre Whitehead MD Height/Weight Height: 5 ft 7 in Weight: 69.8 kg Allergies Allergy/AdvReac Type Severity Reaction Status Date / Time adhesive Allergy Mild Rash Verified 10/01/21 14:41 Gold Salts Allergy Mild Rash Verified 10/01/21 14:41 nickel Allergy Mild Discolors Verified 10/01/21 14:41 skin Medications Home Medications Medication Instructions Recorded Confirmed Last Taken carbidopa 25 mg-levodopa 100 mg 1 tab PO QID 04/21/18 05/09/24 05/09/24 08:00 tablet (Sinemet) cholecalciferol (vitamin D3) 25 1,000 units PO QAM 04/21/18 05/09/24 05/09/24 mcg (1,000 unit) capsule carbidopa 50 mg-levodopa 200 1 tab PO HS 09/21/18 05/09/24 05/08/24 mg-entacapone 200 mg tablet acetaminophen 500 mg tablet 500 mg PO Q6H PRN Pain 05/24/19 05/09/24 09/24/20 07:00 (Tylenol Extra Strength) docusate sodium 100 mg capsule 100 mg PO BID 05/24/19 05/09/24 05/09/24 (Colace) gabapentin 400 mg capsule 400 mg PO QAM #30 caps 05/24/19 05/09/24 05/09/24 gabapentin 600 mg tablet 600 mg PO BID 09/28/19 05/09/24 05/08/24 polyethylene glycol 3350 17 gram 17 g PO QPM 04/23/20 05/09/24 05/08/24 oral powder packet (Miralax) trazodone 50 mg tablet 50 mg PO HS 04/23/20 05/09/24 05/08/24 amantadine HCl 100 mg tablet 100 mg PO TID 10/01/21 05/09/24 05/09/24 calcium carbonate 1,500 mg PO DAILY 10/01/21 05/09/24 05/09/24 rasagiline 0.5 mg tablet (Azilect) 0.25 mg PO QAM 10/01/21 05/09/24 05/09/24 sennosides 8.6 mg tablet 8.6 mg PO QAM 10/01/21 05/09/24 05/09/24 amoxicillin 500 mg capsule 2,000 mg (4 x 500 mg) PO ONCE #4 11/06/22 05/09/24 Unknown caps meloxicam 7.5 mg tablet 7.5 mg PO QAM 05/09/24 05/09/24 05/09/24 Active Medications Generic Name Dose Route Start Last Admin Trade Name Johnq PRN Reason Stop Dose Admin Acetaminophen 1,000 mg 05/10/24 02:00 05/10/24 09:17 Acetaminophen 500 Mg Tab PO 06/09/24 01:59 1,000 mg Q8H BELINDA Administration Amantadine HCl 100 mg 05/09/24 21:00 05/10/24 08:17 Amantadine Hcl 100 Mg Capsule PO 06/08/24 20:59 100 mg TID BELINDA Administration Calcium Carbonate 1,500 mg 05/10/24 09:00 05/10/24 08:51 Calcium Carbonate 500 Mg Chewable Tab PO 06/09/24 08:59 Not Given DAILY BELINDA Carbidopa/Levodopa 1 tab 05/10/24 07:30 05/10/24 11:09 Carbidopa/Levodopa 25/100mg Tab PO 06/09/24 07:29 1 tab QID@0730,1130,1630,1900 BELINDA Administration Docusate Sodium 100 mg 05/09/24 21:00 05/10/24 08:23 Docusate Sodium 100 Mg Cap PO 06/08/24 20:59 100 mg BID BELINDA Administration Gabapentin 600 mg 05/09/24 23:00 05/10/24 00:06 Gabapentin 600 Mg Tab PO 06/08/24 22:59 600 mg BID@1700,2300 BELINDA Administration Gabapentin 400 mg 05/10/24 09:00 05/10/24 08:21 Gabapentin 400 Mg Cap PO 06/09/24 08:59 400 mg QAM BELINDA Administration Ceftriaxone Sodium 2,000 mg in 50 mls @ 100 mls/hr 05/10/24 07:30 05/10/24 09:44 Rocephin IV 05/15/24 07:29 Infused Q24H BELINDA Infusion Miscellaneous 1 each 05/10/24 00:00 05/10/24 08:21 Rasagiline (Azilect) 0.5mg Tab: Order Awaiting Action N/A 06/09/24 00:00 Not Given QS BELINDA Polyethylene Glycol 17 gm 05/09/24 21:00 05/10/24 00:06 Polyethylene (Miralax) 17 Gm Pack PO 06/08/24 20:59 17 gm QPM BELINDA Administration Sennosides 8.6 mg 05/10/24 09:00 05/10/24 08:23 Senna 8.6 Mg Tab PO 06/09/24 08:59 8.6 mg QAM BELINDA Administration Trazodone HCl 50 mg 05/09/24 21:00 05/09/24 21:01 Trazodone Hcl 50 Mg Tab PO 06/08/24 20:59 50 mg HS BELINDA Administration Vitamin D 25 mcg 05/10/24 09:00 05/10/24 08:19 Cholecalciferol 25 Mcg (1000 Units) Tab PO 06/09/24 08:59 25 mcg QAM BELINDA Administration NPO Date Last Intake of Fluids: 05/09/24 Time Last Intake of Fluids: 23:59 Date Last Intake of Solids: 05/09/24 Time Last Intake of Solids: 23:59 Past Medical History Medical History Encounter for pre-operative examination Urinary incontinence MILD Encounter for pre-operative examination SOB (shortness of breath) on exertion "OUT OF SHAPE"-DOES NOT EXERCISE PER PT Cardiac murmur " A BABY"- HAS SINCE RESOLVED Exercise / Class Metabolic Activity II 4-5 Yardwork/Stairs/Walk up hill Past Family History Family History Mother Family hx of colon cancer Past Surgical History Surgical History History of total knee replacement RT History of breast surgery Re-incision surgery to remove additional margins after lumpectomy H/O breast biopsy LEFT History of colonoscopy Past Anesthesia History No Hx of Anesthesia Complications History of PONV No Hx of PONV Social History Smoking Status: Never smoker Do You Dip or Chew Tobacco: No Hx Alcohol Use: Yes Alcohol type: wine alcohol intake frequency: holidays/special occasions only Hx Substance Use: No substance use type: other Substance Use Type Other:: HEMP SPRAY TOPICALLY R KNEE Q 2 DAYS Review of Systems ROS Unobtainable: All systems reviewed & are unremarkable except as noted in HPI & below Physical Exam Vital Signs Last Vital Signs Temp 36.7 C 05/10/24 08:04 Pulse 73 05/10/24 08:04 Resp 18 05/10/24 08:04 BP 149/81 H 05/10/24 08:04 Pulse Ox 93 05/10/24 08:04 O2 Del Method Room Air 05/10/24 08:04 ENMT Thyromental Distance: > or= 3.5 Finger Breadths Mallampati Class: II Respiratory normal respiratory effort Auscultation: lungs clear to auscultation bilaterally Cardiovascular Rate/Rhythm: regular rate and regular rhythm Psychiatric Orientation: alert and oriented x 3 Testing Laboratory Results 05/10/24 09:15 05/10/24 09:15 PT 11.3 Seconds (9.0-12.0) 05/09/24 15:41 INR 1.0 (0.9-1.1) 05/09/24 15:41 APTT 25 Seconds (21-31) 05/09/24 15:41 Urine Color Yellow 05/09/24 16:37 Urine Appearance Clear (Clear) 05/09/24 16:37 Urine pH 6.5 (4.5-7.5) 05/09/24 16:37 Ur Specific [place] 1.020 (1.000-1.030) 05/09/24 16:37 Urine Protein Negative (Negative) 05/09/24 16:37 Urine Glucose (UA) Negative (Negative) 05/09/24 16:37 Urine Ketones Negative (Negative) 05/09/24 16:37 Urine Nitrite Positive (Negative) A 05/09/24 16:37 Ur Leukocyte Esterase Negative (Negative) 05/09/24 16:37 Urine RBC 0-2 /hpf (0-2) 05/09/24 16:37 Urine WBC 0-5 /hpf (0-5) 05/09/24 16:37 Ur Epithelial Cells 0-2 /hpf (0-2) 05/09/24 16:37 Blood Type A Negative 05/09/24 18:05 Antibody Screen NEGATIVE 05/09/24 18:05
[2024-05-10] MEDS: LACTATED RINGER'S 1,000 ML IV SCH (13:36)
[2024-05-10] MEDS ORDERED: ceFAZolin 330 MG/ML 1 GM VIAL ONE (14:16)
[2024-05-10] MEDS ORDERED: ePHEDrine sulfate 50 MG/ML AMP ONE (14:25)
[2024-05-10] MEDS ORDERED: PHENYLEPHRINE 100MCG/ML 10ML SYR IV ONE (14:25)
[2024-05-10] MEDS ORDERED: PHENYLEPHRINE HCL 10 MG/ML VIAL ONE (14:27)
[2024-05-10] MEDS: BUPIVACAINE/EPINEPHRINE 0.5% MPF 1:200,000 30 ML VIAL ONE (14:55)
--- NOTE | 2024-05-10 14:57 | Hospitalist Progress Note ---
Date of Service May 10, 2024 Assessment & Plan (1) Subcapital fracture of left hip: (2) Fall: (3) Parkinson disease: (4) Intraductal carcinoma of left breast: Plan: This is a 73 yr old F who has a significant PMH of HTN, Parkinson disease and L breast DCIS who presented to ED after sustaining a fall. L hip xr: Acute displaced left femoral neck fracture. Left Femoral Neck fracture Fall suspected age related fracture in setting of osteopenia vs osteoporosis admitted to med/surg Orthopedics, Dr. Whitehead consulted - plan for bipolar hip arthroplasty today pain medication and bowel regimen ordered PT/OT consults - Likely will require inpatient rehab afterwards, CM to assist with discharge planning, [facility] of right knee replacement obtain vit D level in a.m., last Dexa scan was 2018 which showed a T score - 2.3 at the hip which was a significant decrease from dexa scan 2 years prior, recommend Dexa as OP and continued vitamin D supplementation Acute uncomplicated UTI UA abnormal and pt with reports of urgency and frequency empirically on IV Rocephin, await urine culture remove rebolledo as soon as able Parkinson Continue home medications: Carbidopa-levodopa, amantadine Pt follows Dr. Weber, regarding hallucinations pt was to trial melatonin with the possibility of up titrating the dose as he feels she may also be having some REM behavior disorder close monitoring and delirium precautions Anemia previous hgb 13.6 in January will obtain anemia panel in a.m. and follow closely DVT ppx: teds, scds, no anticoagulation with plans for OR tomorrow, will defer to DR. Whitehead regarding his preferred VTE prophylaxis post operatively CODE: FULL Dispo: NPO for surgey today, PT/OT consults to be performed post operatively Point of contact: would like to be informed regarding orthopedic plans SonBroderick at [phone] Daughter in law (son's )Tiffanie [phone] A total of 52 minutes were spent with greater than 50% of that time face to face with the patient, personally reviewing all current laboratories, imaging studies, past medication reconciliation, outpatient chart review, and discussion with specialists to collaborate care for the patient with attending. Please see attending documentation for corrections and/or additions. (5) UTI (urinary tract infection), uncomplicated: Admission and Anticipated Discharge Date Admission Date: May 09, 2024 Supervising Physician Co-Signing Physician Notes I have seen and discussed the case with the collaborating advanced practitioner. I agree with the above PNI have reviewed and confirmed the patients medical history, the findings on physical examination, and the patients diagnosis and treatment plan with Zina KAUR and agree with the information documented. Patient s/p fall pending a cemented biopolar arthroplasty. UA suspicious as well. Will follow culture. CTX in interim. Follow postop recovery. PT/OT when able/ I spent a total of 10 minutes coordinating, documenting, and providing care for this patient excluding time spent in the performance of separately billed services. All of the aforementioned completed outside of collaborating with the assigned advanced practitioner for a full treatment plan. I have reviewed the advanced practitioner's documentation, and I agree with, and take responsibility for the plan of care Subjective Pt has reported chronic hallucinations. She follows Dr. Weber for this. SHe reports seeing, "bugs" last night. Per staff she was a bit disruptive. She denies any pain right now. Denies f/c/s, chest pain, sob n/v/d. Pain is obviously worse with movement. SHe does report urinary urgency/frequency. She has a hx of UTI many years ago and reports it feels similar. Discussed with nurse Ferguson at bedside. Review of Systems Review of Systems: All systems reviewed & are unremarkable except as noted in HPI & below Physical Exam Physical Exam: Gen: WD/WN, parkinsonian featues, NAD, A&O x3 HEENT: Normocephalic, atraumatic, conjunctivae moist, sclerae anicteric, mucous membranes moist. Lung: Clear to Auscultation bilaterally, no wheezes/rales/rhonchi Heart: Regular rate, regular rhythm, no murmurs, rubs, or gallops Abdomen: Soft, NT, ND +BS x 4 Extremities: No edema, LLE shortened and externally rotated Skin: Warm, no rash, negative turgor. Results & Data Results & Data Vital Signs (Past 12 Hours) Vital Signs Temp Pulse Pulse Resp BP Pulse Ox O2 Del Method 05/10/24 13:20 36.7 C 77 20 153/74 H 97 Room Air 05/10/24 08:04 36.7 C 73 18 149/81 H 93 Room Air Laboratory Results Short CBC 05/09/24 05/10/24 Range/Units 15:41 09:15 WBC 11.76 H 5.82 (4.8-10.8) K/ul Hgb 13.0 11.6 L (12.0-16.0) g/dl Hct 37.4 33.7 L (37.0-47.0) % Plt Count 237 168 (130-400) K/uL BMP 05/09/24 05/10/24 15:41 09:15 Sodium 139 142 Potassium 3.8 4.0 Chloride 104 110 H Carbon Dioxide 26 23 BUN 19 15 Creatinine 0.83 0.73 Glucose 110 H 101 H Calcium 10.3 9.0 Liver Function 05/09/24 Range/Units 15:41 Total Bilirubin 1.1 H (0.2-1.0) mg/dl AST 10 L (13-39) U/L ALT < 3 L (7-52) U/L Alkaline Phosphatase 108 H (34-104) U/L Albumin 4.7 (3.4-5.0) gm/dl Urine 05/09/24 Range/Units 16:37 Urine Color Yellow Urine Appearance Clear (Clear) Urine pH 6.5 (4.5-7.5) Ur Specific [place] 1.020 (1.000-1.030) Urine Protein Negative (Negative) Urine Glucose (UA) Negative (Negative) Medications Administered Current Inpatient Medications Acetaminophen (Acetaminophen 500 Mg Tab) 1,000 mg PO Q8H BELINDA Stop: 06/09/24 01:59 Last Admin: 05/10/24 09:17 Dose: 1,000 mg Amantadine HCl (Amantadine Hcl 100 Mg Capsule) 100 mg PO TID BELINDA Stop: 06/08/24 20:59 Last Admin: 05/10/24 08:17 Dose: 100 mg Atropine Sulfate (Atropine Sulfate 0.1 Mg/Ml 10ml Syr) 0.5 mg IV Q1M PRN PRN Reason: PACU Use-HR<40 &/or Bradycardi Stop: 05/10/24 21:18 Bisacodyl (Bisacodyl 10 Mg Supp) 10 mg [place] DAILY PRN PRN Reason: Constipation Stop: 06/08/24 20:17 Calcium Carbonate (Calcium Carbonate 500 Mg Chewable Tab) 1,500 mg PO DAILY BELINDA Stop: 06/09/24 08:59 Last Admin: 05/10/24 08:51 Dose: Not Given Carbidopa/Levodopa (Carbidopa/Levodopa 25/100mg Tab) 1 tab PO QID@0730,1130,1630,1900 [facility] Stop: 06/09/24 07:29 Last Admin: 05/10/24 11:09 Dose: 1 tab Carbidopa/Levodopa (Carbidopa/Levodopa 50/200mg Ext Rel Tab) 1 tab PO HS [facility] Stop: 06/09/24 20:59 Docusate Sodium (Docusate Sodium 100 Mg Cap) 100 mg PO BID [facility] Stop: 06/08/24 20:59 Last Admin: 05/10/24 08:23 Dose: 100 mg Ephedrine Sulfate (Ephedrine Sulfate 50 Mg/Ml Amp) 5 mg IV Q5M PRN PRN Reason: PACU Use Only-SBP<90 mmHg Stop: 05/10/24 21:18 Fentanyl Citrate (Fentanyl Citrate Pf 100 Mcg/2 Ml Vial) 25 mcg IV Q5M PRN PRN Reason: PACU Use Only-Pain Stop: 05/10/24 21:18 Gabapentin (Gabapentin 600 Mg Tab) 600 mg PO BID@1700,2300 [facility] Stop: 06/08/24 22:59 Last Admin: 05/10/24 00:06 Dose: 600 mg Gabapentin (Gabapentin 400 Mg Cap) 400 mg PO QAM [facility] Stop: 06/09/24 08:59 Last Admin: 05/10/24 08:21 Dose: 400 mg Hydromorphone HCl (Hydromorphone Inj 1 Mg/Ml Syringe) 0.25 mg IV Q5M PRN PRN Reason: PACU Use Only-Pain Stop: 05/10/24 21:18 Ceftriaxone Sodium (Rocephin) 2,000 mg in 50 mls @ 100 mls/hr IV Q24H [facility] Stop: 05/15/24 07:29 Last Infusion: 05/10/24 09:44 Dose: Infused Lactated Ringer's (Lr) 1,000 mls @ 15 mls/hr IV .Q24H [facility] Stop: 06/09/24 13:44 Last Infusion: 05/10/24 13:55 Dose: Infused Magnesium Hydroxide (Magnesium Hydroxide Susp 30 Ml Udc) 30 ml PO DAILY PRN PRN Reason: Constipation Stop: 06/08/24 20:17 Miscellaneous (Rasagiline (Azilect) 0.5mg Tab: Order Awaiting Action) 1 each N/A QS [facility] Stop: 06/09/24 00:00 Last Admin: 05/10/24 08:21 Dose: Not Given Morphine Sulfate (Morphine Sulfate 2 Mg/Ml Carp) 2 mg IV Q2H PRN PRN Reason: Severe Pain (Scale 7, 8, 9,10) Stop: 05/23/24 20:17 Naloxone HCl (Naloxone Hcl 0.4 Mg/1 Ml Vial/Carp) 0.1 mg IV UD PRN PRN Reason: Opiate Overdose Stop: 06/08/24 20:17 Ondansetron HCl (Ondansetron Inj 2 Mg/Ml 2 Ml Vial) 4 mg IV Q4H PRN PRN Reason: Nausea And Vomiting Stop: 06/08/24 20:17 Ondansetron HCl (Ondansetron Inj 2 Mg/Ml 2 Ml Vial) 4 mg IV ONCE PRN PRN Reason: PACU Use Only-Nausea/Vomiting Stop: 05/10/24 21:18 Oxycodone HCl (Oxycodone Hcl Ir 5 Mg Tab (Immediate Release)) 5 mg PO Q4H PRN PRN Reason: Moderate Pain (Scale 4, 5, 6) Stop: 05/23/24 20:17 Polyethylene Glycol (Polyethylene (Miralax) 17 Gm Pack) 17 gm PO QPM [facility] Stop: 06/08/24 20:59 Last Admin: 05/10/24 00:06 Dose: 17 gm Sennosides (Senna 8.6 Mg Tab) 8.6 mg PO QAM [facility] Stop: 06/09/24 08:59 Last Admin: 05/10/24 08:23 Dose: 8.6 mg Trazodone HCl (Trazodone Hcl 50 Mg Tab) 50 mg PO HS [facility] Stop: 06/08/24 20:59 Last Admin: 05/09/24 21:01 Dose: 50 mg Vitamin D (Cholecalciferol 25 Mcg (1000 Units) Tab) 25 mcg PO QAM [facility] Stop: 06/09/24 08:59 Last Admin: 05/10/24 08:19 Dose: 25 mcg
[2024-05-10] MEDS ORDERED: GLYCOPYRROLATE 0.2 MG/ML VIAL ONE (15:18)
--- NOTE | 2024-05-10 15:41 | Operative Report ---
PG Post Operative Report Pre & Post Diagnosis Operation Date: 05/10/24 07:00 Pre-Op Diagnosis: Left displaced subcapital hip Fracture Post-Op Diagnosis: Left displaced subcapital hip Fracture I identified the patient and participated in the time-out.: Yes Procedure Operation Date: 05/10/24 07:00 Actual Procedures p Left Hip Hemiarthroplasty, Cemented(Left) - Andre Whitehead MD Surgeon Andre Whitehead MD [employer] Attendant Anton Silverio PA-C Estimated Blood Loss 200 Findings Consistent with Post-Op Diagnosis Specimens Left femoral head sent for pathology. Anesthesia Type Spinal MAC Complications none Disposition Accompanied Patient To Recovery: No Indications Patient is a 73-year-old female with underlying Parkinson's disease sustained a fall yesterday. She got up and got dizzy when she turns her neck and fell. She had acute onset of pain. Could not ambulate afterwards. She was brought to emergency room x-rays with displaced subcapital femoral neck fracture. The patient was admitted by the hospitalist service, medically optimized indicated for surgical treatment. Patient does have a known nickel allergy. I felt based on her situation that a cemented stem was most advantageous so we elected proceed with a cemented hip arthroplasty. Description of Procedure Operative implants consist of: 1. DePuy [place] size 3 high offset cemented femoral stem. 2. 10.5 distal centralizer. 3. +5/28 mm metal articular ball with a 46 mm bipolar shell and liner. 4. Small cement restrictor. The patient was taken to the op room, identified, placed on the operating table in the supine position. All contact areas were appropriately padded. IV antibiotics fibra anesthesia team. A spinal anesthetic was implemented. The patient was then placed in the right lateral decubitus position. An axillary roll was placed. A Stulberg hip position was used for positioning. The left hip and leg were then scrubbed with Hibiclens and then prepped with ChloraPrep and then draped in usual sterile fashion. A posterolateral approach to the left hip was then performed to a curvilinear incision centered over the greater trochanter. Sharp dissection was got through subcutaneous tissue dental of the IT band gluteal fascia with IT band gluteal fascia incised longitudinally in line with skin incision. The underlying greater bursa was excised. It was quite hemorrhagic in the posterior aspect of hip joint. The external rotators as well as the posterior hip joint capsule were then released from the posterior aspect the hip as a single layer. Great care was taken throughout the procedure protect the sciatic nerve. The capsular flaps were then tagged. The hip was internally rotated. A femoral neck osteotomy cut was made below the fracture site. The femoral neck was removed. The femoral head was removed. I trialed the acetabulum the 46 mm shell fit most appropriately. Attention drawn the femur. The proximal femur was entered with a Cook cutter followed by canal finder and lateralizing reamer. We then broached beginning with a size 1 and progressing to a 2. I could not quite get the 3 broach down. We trialed the hip and the +5 articular ball provided full stability. Leg lengths appeared and soft tissue tension seemed equal. We elect to place these implants. All trial implants were removed. The cement was restrictor was placed down the canal. A double batch [place] G cement was mixed. I then injected the canal. A size 3 high offset cemented femoral stem was then positioned in place. It was held until the cement hardened. Final cement check was then performed. We then placed a +5/28 mm metal ball and a 46 mm bipolar shell and liner. Hip was located and once again found to be stable. Attention drawn toward closing. Wounds irrigated coconuts of pulsatile lavage solution. I did inject locally with 60 cc of half percent Marcaine with epinephrine. The posterior capsule was then repaired with #2 Tycron suture in a [id number] fashion. The IT band gluteal fascia were then closed in 1 PDS suture in a running fashion for the subcutaneous tissues then closed with 2 layers of the deep layer #1 Vicryl suture in the subcutaneous tissues with 2-0 Dexon suture in buried interrupted fashion. Skin was closed with skin damir. A Prevena VAC dressing was applied. The patient was then transferred to the recovery room in stable con dition. The patient tolerated procedure well and there were no complications. Anton Silverio, my physician dental front office assistant, was present for the entire procedure. His assistance was essential and required for appropriate patient positioning, prepping and draping, surgical exposure, performing the technical details of the operation, placement the implants, closure of the wound, and placement of the sterile bandage. I attest to the content of the Intraoperative Record and any orders documented therein. Any exceptions are noted below.
--- NOTE | 2024-05-10 16:07 | Anesthesiology Progress Note ---
Date of Service May 10, 2024 Anesthesia Post Procedure Vital Signs Vital Signs: Temp Pulse Pulse Pulse Resp BP BP 05/10/24 15:55 36.3 C L 82 17 106/58 L 05/10/24 15:45 74 14 111/57 L 05/10/24 15:35 37 C 76 17 102/53 L 05/10/24 13:20 36.7 C 77 20 153/74 H 05/10/24 08:04 36.7 C 73 18 149/81 H 05/09/24 22:47 36.4 C L 60 20 103/52 L 05/09/24 22:08 63 16 93/44 L 05/09/24 22:08 05/09/24 19:48 87 18 05/09/24 19:48 78 18 141/99 H 05/09/24 19:42 77 Pulse Ox Pulse Ox O2 Del Method O2 Del Method O2 Flow Rate 05/10/24 15:55 98 Oxymask 2 05/10/24 15:45 98 Oxymask 13 05/10/24 15:35 97 Oxymask 13 05/10/24 13:20 97 Room Air 05/10/24 08:04 93 Room Air 05/09/24 22:47 95 Room Air 05/09/24 22:08 95 Room Air 05/09/24 22:08 95 Room Air 05/09/24 19:48 97 Room Air 05/09/24 19:48 97 Room Air 05/09/24 19:42 Pain Intensity Left Hip: Pain Intensity: 3 Transfer of Care Handoff Completed per policy Notes Mental Status: alert / awake / arousable and participated in evaluation Nausea / Vomiting: adequately controlled Pain: adequately controlled Airway Patency, RR, SpO2: stable & adequate BP & HR: stable & adequate Hydration State: stable & adequate Neuraxial Anesthesia: was administered Anesthetic Complications: no major complications apparent and Pt Satisfied with anesthetic care
[2024-05-10] MEDS: SODIUM CHLORIDE 0.9% 1,000 ML IV SCH (16:50)
--- NOTE | 2024-05-10 17:50 | XRay Report ---
XR hip LT min 2V CLINICAL HISTORY: Post-Operative implant position TECHNIQUE: 2 views of the left hip were obtained. Comparison: Comparison is made to left hip radiograph 05/09/2024 FINDINGS: Patient is status post total hip arthroplasty with expected postsurgical changes including soft tissu e swelling and subcutaneous emphysema. IMPRESSION: Expected postoperative appearance status post placement of total hip arthroplasty. ACT 112: Negative or not required by law. Electronically signed by: Ben Paul M.D. 05/10/2024 5:48 PM
[2024-05-10] MEDS: oxyCODONE HCL IR 5 MG TAB (IMMEDIATE RELEASE) PO PRN (18:52)
[2024-05-10] MEDS: ASPIRIN 81 MG ECTAB PO SCH (19:55)
[2024-05-10] MEDS: CARBIDOPA/LEVODOPA 50/200MG EXT REL TAB PO SCH (19:55)
[2024-05-10] MEDS: ceFAZolin 1000MG 1,000 MG/7.5 ML SYR IV SCH (22:25)
--- NOTE | 2024-05-11 07:06 | Orthopedic Progress Note ---
Date of Service May 11, 2024 Assessment & Plan (1) History of left hip hemiarthroplasty: POD #1 from hemiarthroplasty for femoral neck fx. Pain seems controlled. PT/OT: wbat, hip precautions dvt prophylaxis: teds, scd's, aspirin d/c planning labs pending today Subjective .73 year old patient POD #1 from cemented left hip hemiarthroplasty. Complains of some back pain, hip pain has not been bad. She says she had difficulty standing yesterday. Review of Systems All systems reviewed & are unremarkable except as noted in HPI & below. Physical Exam . alert, NAD vss, bp and pulse slightly elevated. Left hip: prevena vac in place, functioning appropriately. Able to do some gentle hip motion, some pain. Able to DF/PF, NVI labs pending Results & Data Results & Data Laboratory Results . Diagnostic Findings . PG Care Time/CCT Total # of Minutes Spent Total Time Spent with Patient: Total time spent is greater than 50% in coordination of care (as documented) at patient's floor/unit and/or counseling patient: Coding Level of Care Code 16544 Post Operative Follow-Up Diagnoses History of left hip hemiarthroplasty Z96.642
[2024-05-11 07:37] LABS: Basophils # (auto) 0.03 K/uL (0.00-0.20); Basophils % (auto) 0.4 %; Eosinophils # (auto) 0.23 K/uL (0.00-0.50); Eosinophils % (auto) 3.2 %; Hematocrit (blood only) 28.7 % (37.0-47.0); Hemoglobin 9.9 g/dl (12.0-16.0); Immature Granulocytes # (auto) 0.02 K/uL (0.01-0.20); Immature Granulocytes % (auto) 0.3 %; Lymphocytes # (auto) 0.83 K/uL (1.20-3.40); Lymphocytes % (auto) 11.7 %; Mean Corpuscular Hemoglobin 31.6 pg (25.0-34.0); Mean Corpuscular Hgb Conc 34.5 g/dL (32.0-36.0); Mean Corpuscular Volume 91.7 fL (80.0-100.0); Mean Platelet Volume 10.8 fL (9.4-12.4); Monocytes # (auto) 0.61 K/uL (0.11-0.59); Monocytes % (auto) 8.6 %; Neutrophils # (auto) 5.38 K/uL (1.40-6.50); Neutrophils % (auto) 75.8 %; Platelet Count 167 K/uL (130-400); RDW Coefficient of Variation 13.2 % (11.5-14.5); RDW Standard Deviation 43.6 fL (36.4-46.3); Red Blood Count 3.13 M/uL (4.20-5.40)
[2024-05-11 08:00] LABS: BUN Creatinine Ratio 18.5 (10-20); Calcium 8.8 mg/dl (8.6-10.3); Est GFR (African American) 102.1 ml/min; Est GFR (Non-African American) 88.1 ml/min; Magnesium 1.8 mg/dl (1.7-2.4); Potassium 3.9 mmol/L (3.5-5.1)
[2024-05-11 08:20] LABS: Ferritin 80.8 ng/ml (8-388)
[2024-05-11 08:23] LABS: Folate (Folic Acid),Ser orPlas 3.7 ng/ml (>5.38)
--- NOTE | 2024-05-11 11:57 | Hospitalist Progress Note ---
Date of Service May 11, 2024 Assessment & Plan (1) Subcapital fracture of left hip: (2) Fall: (3) Parkinson disease: (4) Intraductal carcinoma of left breast: Plan: This is a 73 yr old F who has a significant PMH of HTN, Parkinson disease and L breast DCIS who presented to ED after sustaining a fall. L hip xr: Acute displaced left femoral neck fracture. Left Femoral Neck fracture Fall suspected age related fracture in setting of osteopenia vs osteoporosis admitted to med/surg Orthopedics, Dr. Whitehead consulted - plan for hip arthroplasty today pain medication and bowel regimen ordered PT/OT consults - Likely will require inpatient rehab afterwards, CM to assist with discharge planning, [facility] last Dexa scan was 2018 which showed a T score - 2.3 at the hip which was a significant decrease from dexa scan 2 years prior, recommend Dexa as OP and continued vitamin D supplementation Acute uncomplicated UTI UA abnormal and pt with reports of urgency and frequency empirically on IV Rocephin, await urine culture remove rebolledo as soon as able Parkinson Continue home medications: Carbidopa-levodopa, amantadine Pt follows Dr. Weber, regarding hallucinations pt was to trial melatonin with the possibility of up titrating the dose as he feels she may also be having some REM behavior disorder close monitoring and delirium precautions Iron, Folate and B12 deficiency leading to Anemia likely with dilutional component do not suspect blood loss from surgery is playing role previous hgb 13.6 in January, 05/10 11.6 and 05/11 9.9 will give IV venofer 200mg x 1 today and 400mg x 1 tomorrow supplement with folic acid and b12 will need anemia panel rechecked in 3 months Vitamin D Deficiency increase vitamin D to 50mcg daily, recheck in 2-3 months DVT ppx: ASA BID per ortho CODE: FULL Dispo: await PT/OT consults Point of contact: SonBroderick at [phone] Daughter in law (son's ), Tiffanie Iqbal [phone] A total of 52 minutes were spent with greater than 50% of that time face to face with the patient, personally reviewing all current laboratories, imaging studies, past medication reconciliation, outpatient chart review, and discussion with specialists to collaborate care for the patient with attending. Please see attending documentation for corrections and/or additions. (5) UTI (urinary tract infection), uncomplicated: Admission and Anticipated Discharge Date Admission Date: May 09, 2024 Supervising Physician Co-Signing Physician Notes Pt is s/p left femoral neck fracture repair 05/10. Plan for pt/ot and possible rehab per d/w VINCENT. Pt not seen personally. Subjective NAEO. She does not want to take strong pain medicines. She denies f/c/s, chest pain, sob, n/v/d. She continues to have vivid hallucinations. She thinks pain meds are making worse. Review of Systems Review of Systems: All systems reviewed & are unremarkable except as noted in HPI & below Physical Exam Physical Exam: Gen: WD/WN, parkinsonian features, NAD, A&O x3 HEENT: Normocephalic, atraumatic, conjunctivae moist, sclerae anicteric, mucous membranes moist. Lung: Clear to Auscultation bilaterally, no wheezes/rales/rhonchi Heart: Regular rate, regular rhythm, no murmurs, rubs, or gallops Abdomen: Soft, NT, ND +BS x 4 Extremities: No edema, LLE dressing CDI Skin: Warm, no rash, negative turgor. Results & Data Results & Data Vital Signs (Past 12 Hours) Vital Signs Temp Pulse Resp BP Pulse Ox O2 Del Method 05/11/24 07:14 37 C 81 18 163/73 H 96 Room Air 05/11/24 03:45 36.7 C 91 H 18 144/89 H 95 Room Air Laboratory Results Short CBC 05/11/24 Range/Units 07:07 WBC 7.10 (4.8-10.8) K/ul Hgb 9.9 L (12.0-16.0) g/dl Hct 28.7 L (37.0-47.0) % Plt Count 167 (130-400) K/uL BMP 05/11/24 07:07 Sodium 140 Potassium 3.9 Chloride 108 H Carbon Dioxide 24 BUN 12 Creatinine 0.65 Glucose 105 H Calcium 8.8 Medications Administered Current Inpatient Medications Acetaminophen (Acetaminophen 500 Mg Tab) 1,000 mg PO Q8H BELINDA Stop: 06/09/24 01:59 Last Admin: 05/11/24 10:51 Dose: 1,000 mg Amantadine HCl (Amantadine Hcl 100 Mg Capsule) 100 mg PO TID BELINDA Stop: 06/08/24 20:59 Last Admin: 05/11/24 08:10 Dose: 100 mg Aspirin (Aspirin 81 Mg Ectab) 81 mg PO BID BELINDA Stop: 06/09/24 20:59 Last Admin: 05/11/24 08:09 Dose: 81 mg Bisacodyl (Bisacodyl 10 Mg Supp) 10 mg CA DAILY PRN PRN Reason: Constipation Stop: 06/08/24 20:17 Calcium Carbonate (Calcium Carbonate 500 Mg Chewable Tab) 1,500 mg PO DAILY BELINDA Stop: 06/09/24 08:59 Last Admin: 05/11/24 08:11 Dose: 1,500 mg Carbidopa/Levodopa (Carbidopa/Levodopa 25/100mg Tab) 1 tab PO QID@0730,1130,1630,1900 [facility]IN[facility] Stop: 06/09/24 07:29 Last Admin: 05/11/24 10:52 Dose: 1 tab Carbidopa/Levodopa (Carbidopa/Levodopa 50/200mg Ext Rel Tab) 1 tab PO HS [facility]INDA Stop: 06/09/24 20:59 Last Admin: 05/10/24 19:55 Dose: 1 tab Docusate Sodium (Docusate Sodium 100 Mg Cap) 100 mg PO BID [facility]INDA Stop: 06/08/24 20:59 Last Admin: 05/11/24 08:15 Dose: 100 mg Gabapentin (Gabapentin 600 Mg Tab) 600 mg PO BID@1700,2300 [facility]IN[facility] Stop: 06/08/24 22:59 Last Admin: 05/10/24 22:25 Dose: 600 mg Gabapentin (Gabapentin 400 Mg Cap) 400 mg PO QAM [facility] Stop: 06/09/24 08:59 Last Admin: 05/11/24 08:09 Dose: 400 mg Ceftriaxone Sodium (Rocephin) 2,000 mg in 50 mls @ 100 mls/hr IV Q24H [facility]INDA Stop: 05/13/24 07:29 Last Infusion: 05/11/24 08:40 Dose: Infused Lactated Ringer's (Lr) 1,000 mls @ 15 mls/hr IV .Q24H [facility]IN[facility] Stop: 06/09/24 13:44 Last Infusion: 05/10/24 13:55 Dose: Infused Sodium Chloride (Nss) 1,000 mls @ 80 mls/hr IV .[id number] [facility] Stop: 05/11/24 17:21 Last Admin: 05/11/24 03:31 Dose: 80 mls/hr Magnesium Hydroxide (Magnesium Hydroxide Susp 30 Ml Udc) 30 ml PO DAILY PRN PRN Reason: Constipation Stop: 06/08/24 20:17 Melatonin (Melatonin 3 Mg Tab) 3 mg PO HS [facility] Stop: 06/10/24 20:59 Miscellaneous (Rasagiline (Azilect) 0.5mg Tab: Order Awaiting Action) 1 each N/A QS [facility] Stop: 06/09/24 00:00 Last Admin: 05/11/24 08:30 Dose: Not Given Naloxone HCl (Naloxone Hcl 0.4 Mg/1 Ml Vial/Carp) 0.1 mg IV UD PRN PRN Reason: Opiate Overdose Stop: 06/08/24 20:17 Ondansetron HCl (Ondansetron Inj 2 Mg/Ml 2 Ml Vial) 4 mg IV Q4H PRN PRN Reason: Nausea And Vomiting Stop: 06/08/24 20:17 Oxycodone HCl (Oxycodone Hcl Ir 5 Mg Tab (Immediate Release)) 5 mg PO Q4H PRN PRN Reason: Moderate Pain (Scale 4, 5, 6) Stop: 05/23/24 20:17 Last Admin: 05/10/24 18:52 Dose: 5 mg Polyethylene Glycol (Polyethylene (Miralax) 17 Gm Pack) 17 gm PO QPM [facility] Stop: 06/08/24 20:59 Last Admin: 05/10/24 19:59 Dose: 17 gm Sennosides (Senna 8.6 Mg Tab) [facility] [place] Stop: 06/09/24 08:59 Last Admin: 05/11/24 08:15 Dose: 8.6 mg Trazodone HCl (Trazodone Hcl 50 Mg Tab) 50 mg PO HS [facility] Stop: 06/08/24 20:59 Last Admin: 05/10/24 19:59 Dose: 50 mg Vitamin D (Cholecalciferol 25 Mcg (1000 Units) Tab) 25 mcg PO QAM [facility] Stop: 06/09/24 08:59 Last Admin: 05/11/24 08:10 Dose: 25 mcg
[2024-05-11] MEDS: CYANOCOBALAMIN (B-12) 500 MCG TABLET PO SCH (13:45)
[2024-05-11] MEDS: IRON SUCROSE 200 MG in 0.9 % SODIUM CHLORIDE 100 ML IV ONE (13:45)
[2024-05-11] MEDS ORDERED: hydrALAZINE 10 MG TAB PO PRN (16:46)
[2024-05-11] MEDS: MELATONIN 3 MG TAB PO SCH (20:27)
[2024-05-12 07:08] LABS: Basophils # (auto) 0.04 K/uL (0.00-0.20); Basophils % (auto) 0.6 %; Eosinophils # (auto) 0.23 K/uL (0.00-0.50); Eosinophils % (auto) 3.7 %; Hematocrit (blood only) 29.5 % (37.0-47.0); Hemoglobin 9.9 g/dl (12.0-16.0); Immature Granulocytes # (auto) 0.03 K/uL (0.01-0.20); Immature Granulocytes % (auto) 0.5 %; Lymphocytes # (auto) 0.61 K/uL (1.20-3.40); Lymphocytes % (auto) 9.8 %; Mean Corpuscular Hemoglobin 31.3 pg (25.0-34.0); Mean Corpuscular Hgb Conc 33.6 g/dL (32.0-36.0); Mean Corpuscular Volume 93.4 fL (80.0-100.0); Neutrophils # (auto) 4.82 K/uL (1.40-6.50); Neutrophils % (auto) 77.4 %; Platelet Count 184 K/uL (130-400); RDW Coefficient of Variation 13.2 % (11.5-14.5); RDW Standard Deviation 45.1 fL (36.4-46.3); Red Blood Count 3.16 M/uL (4.20-5.40); White Blood Count 6.23 K/ul (4.8-10.8)
[2024-05-12 07:26] LABS: BUN Creatinine Ratio 17.9 (10-20); Potassium 3.7 mmol/L (3.5-5.1)
--- NOTE | 2024-05-12 08:06 | Orthopedic Progress Note ---
Date of Service May 12, 2024 Assessment & Plan (1) History of left hip hemiarthroplasty: Plan: 73-year-old female with underlying Parkinson disease now postop day 2 from a cemented bipolar hip arthroplasty for fracture. Orthopedically she is doing pretty well. Pain seems to be controlled. Hips located. She is neurologically intact. Plan: 1. DVT prophylaxis including Thiede teds, SCDs, aspirin twice a day for the next 6 weeks. 2. PT/OT. Weight-bear as tolerated. Left total hip protocol. Needs to obey hip precautions. 3. Pain control doing okay with current pain regimen. 4. Medical management as per the medicine service. 5. Disposition she is orthopedically okay for discharge anytime medically stable. I need to see her back 2 to 3 weeks out from surgery date. I think she would benefit greatly from a rehab stay. Admission and Anticipated Discharge Date Admission Date: May 09, 2024 Subjective 73-year-old female postop day 2 from left cemented bipolar hip arthroplasty for fracture. She is doing pretty well this morning. Pain is well-controlled while laying in bed. Still pretty tired this morning. Physical Exam Physical Exam: Physical nation is a pleasant elderly female. As she is lying in bed looks pretty comfortable. Examination left hip and leg reveals the dressing be clean dry and intact. Leg lengths are equal. She can dorsiflex and plantarflex her foot appropriately. She is neurologically intact. Results & Data Vital Signs (Past 12 Hours) Vital Signs Temp Pulse Resp BP Pulse Ox Pulse Ox O2 Del Method 05/12/24 07:06 37.6 C H 72 18 125/73 93 Room Air 05/11/24 22:00 96 05/11/24 21:10 84 132/80 O2 Del Method 05/12/24 07:06 05/11/24 22:00 Room Air 05/11/24 21:10 Laboratory Results Hemoglobin is 9.9. Hematocrit is 29.5. Electrolytes are stable.
[2024-05-12] MEDS: FOLIC ACID 1 MG TAB PO SCH (08:51)
[2024-05-12] MEDS: RASAGILINE MESYLATE 0.5 MG PO SCH (08:54)
--- NOTE | 2024-05-12 09:43 | Hospitalist Progress Note ---
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 Left Femoral Neck fracture S/P Fall: Suspected age-related fracture in setting of osteopenia vs osteoporosis. Last DEXA scan was in 2019 and showed a T score - 2.3 at the hip, which was a significant decrease from her DEXA scan 2 years prior, recommend DEXA scan as OP and continued vitamin D supplementation. Patient is now post-op day #2 following cemented left hip hemiarthroplasty performed by Dr. Andre Whitehead. PT/OT recommending inpatient rehabilitation stay upon discharge as patient is unsafe to return home alone. [facility] expects to be able to accept patient for rehabilitation services tomorrow. Continue pain and bowel regimens. Patient will need an orthopedic follow-up appointment 2 to 3 weeks out from her surgery date with Dr. Whitehead. Patient is cleared for discharge when medically stable from the orthopedic perspective. Dr. Whitehead agrees that the patient would benefit greatly from a rehabilitation stay. Patient to continue weightbearing as tolerated with left hip precautions. Patient to be on 81mg aspirin BID for the next 6 weeks per ortho's recommendation. Acute Uncomplicated UTI: UA abnormal with evidence fo 3+ bacteria and positive nitrates on admission. She is currently on day #3 of IV Rocephin therapy, plan to complete 5-day course. Initial urine culture was contaminated. Repeat urine sample was obtained this morning, results pending. Plan to remove her Ibrahim catheter soon, hopefully by this afternoon. Parkinson's Disease: Continue home medications including carbidopa-levodopa, amantadine and rasagiline. Patient follows Dr. Weber [[facility]]. According to her most recent visit on 02/08/24, patient had an emergence of some benign hallucinations and perhaps a REM behavior disorder issue. Recommendation at that time was to start her on melatonin 3mg at bedtime. Denied any hallucinations this morning, continue melatonin 3mg HS. Close monitoring and delirium precautions in place. Iron, Folate and B12 Deficiency Anemia: Likely with dilutional component. Do not suspect blood loss from surgery is playing a role. Previous Hgb was 13.6 in January 2024. Hgb was 9.9 yesterday. She received IV Venofer 200mg yesterday and 400mg this morning. Hgb is 9.9 today. Continue B12 and folic acid supplementation. Will need anemia panel rechecked in 3 months. Vitamin D Deficiency: Increased vitamin D supplementation to 50mcg daily, will need a vitamin D level recheck in 2-3 months. HTN: Patient not currently on any antihypertensive medications. Does utilize Lasix 20 mg daily PRN when she experiences episodes of lower extremity edema. DVT Prophylaxis: TEDs/SCDs and aspirin BID as per ortho's recommendation. Code Status: FULL CODE PCP: J oAnn Smith DO Disposition: Patient admitted in Med/Surg, CM assisting with discharge planning --> [facility] expects to be able to accept patient tomorrow. Was able to get a hold of the patient's son, Broderick. Updated him regarding [facility] placement tomorrow. Also made him aware of her UTI and antibiotic course. Point of Contact: SonBroderick @ [phone] & Daughter in Law (Son's ), Tiffanie Iqbal @ [phone]. Patient seen in collaboration with Dr. Red. Please see addendum. I spent a total of 45 minutes coordinating, documenting, and providing care for this patient excluding time spent in the performance of separately billed services. This included personally reviewing all current laboratories and imaging studies, medical reconciliation, outpatient chart review and discussion with specialists. This chart was completed in part utilizing Speech Voice Recognition Software. Grammatical errors, random word insertions, pronoun errors, and incomplete sentences are an occasional consequence of this system due to software limitations, ambient noise, and hardware issues. Any formal questions or concerns about the content, text, or information contained within the body of this dictation should be directly addressed to the provider for clarification. Admission and Anticipated Discharge Date Admission Date: May 09, 2024 Supervising Physician Co-Signing Physician Notes Patient is a status post left femoral neck fracture repair, stable, reports pain under control, awaiting placement. Discussed with Chely KAUR. I have seen and examined the patient and have discussed the case with the provider above. I agree with the assessment and plan as stated. Subjective No acute events overnight according to nursing staff. Patient with good pain control this morning. Denied any hallucinations overnight or this morning. Denies any chest pain, SOB or nausea/vomiting. She is reporting some sinus congestion and a mild cough however believes this is due to seasonal allergies. Agreeable to try some Flonase. Review of Systems Review of Systems: At least ten systems reviewed and negative, except as noted in the subjective section. Physical Exam Physical Exam: General: WD/WN, vitals as above, NAD, sitting up in bed, pleasant, conversing appropriately, Parkinsonian features. A+Ox3, euthymic affect. HEENT: Normocephalic, atraumatic. PERRL, conjunctivae normal, anicteric sclerae. External ear and nose normal, oropharynx normal. Respiratory: Normal respiratory effort, lungs clear to auscultation, no wheeze, rales, rhonchi. No accessory muscle use. Cardiovascular: Regular rate, rhythm, no murmur, normal peripheral pulses, no BLE edema. Vessels: No JVD. Abdomen/GI: Normal bowel sounds, soft, nontender, no hepatosplenomegaly. Extremities/Musculoskeletal: No cyanosis or clubbing, LLE post-op bandaging dry and intact without drainage. Neurologic: EOMI, no focal deficits, CN's II-XI not formally tested but appear grossly intact bilaterally. Skin: No rashes, normal color, warm/dry. Results & Data Results & Data Vital Signs (Past 12 Hours) Vital Signs Temp Pulse Resp BP Pulse Ox Pulse Ox O2 Del Method 05/12/24 07:06 37.6 C H 72 18 125/73 93 Room Air 05/11/24 22:00 96 O2 Del Method 05/12/24 07:06 05/11/24 22:00 Room Air Laboratory Results Short CBC 05/12/24 Range/Units 06:41 WBC 6.23 (4.8-10.8) K/ul Hgb 9.9 L (12.0-16.0) g/dl Hct 29.5 L (37.0-47.0) % Plt Count 184 (130-400) K/uL BMP 05/12/24 06:41 Sodium 140 Potassium 3.7 Chloride 108 H Carbon Dioxide 26 BUN 10 Creatinine 0.56 L Glucose 108 H Calcium 9.0 (1) Fall Encounter type: initial encounter Qualified Code(s): W19.XXXA - Unspecified fall, initial encounter (2) Subcapital fracture of left hip Encounter type: initial encounter Fracture type: closed Qualified Code(s): S72.012A - Unspecified intracapsular fracture of left femur, initial encounter for closed fracture
[2024-05-12] MEDS: CHOLECALCIFEROL 25 MCG (1000 UNITS) TAB PO SCH (09:50)
[2024-05-12] MEDS ORDERED: ACETAMINOPHEN 325 MG TAB PO PRN (09:54)
[2024-05-12 10:21] LABS: Appearance Urine Clear (Clear); Bacteria Urine Automated 1+ (None Seen); Bilirubin Urine 1+ (Negative); Blood Urine Trace (Negative); Color Urine Dark Yellow; Epithelial Cell Urine Auto 0-2 /hpf (0-2); Glucose Urine UA Negative (Negative); Ketones Urine 2+ (Negative); Leukocyte Esterase Urine Negative (Negative); Nitrite Urine Negative (Negative); Protein Urine 1+ (Negative); Specific Gravity Urine 1.033 (1.000-1.030); Urobilinogen Urine Negative (Negative); WBC Urine Automated 0-5 /hpf (0-5)
[2024-05-12] MEDS: FLUTICASONE PROPIONATE NA SPR 16 GM BTL SCH (13:01)
[2024-05-12] MEDS: IRON SUCROSE 400 MG in SODIUM CHLORIDE 0.9% 250 ML IV ONE (13:11)
[2024-05-12 20:27] VITALS: RESP 18
[2024-05-13 08:19] VITALS: BP 166/89; TEMP 97.7
--- NOTE | 2024-05-13 10:49 | Discharge Summary ---
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 Left Femoral Neck fracture S/P Fall: Suspected age-related fracture in setting of osteopenia vs osteoporosis. Last DEXA scan was in 2019 and showed a T score - 2.3 at the hip, which was a significant decrease from her DEXA scan 2 years prior, recommending DEXA scan as OP and continued vitamin D supplementation. Patient is now post-op day #3 following cemented left hip hemiarthroplasty performed by Dr. Andre Whitehead on 05/10/24. PT/OT recommended inpatient rehabilitation stay upon discharge as the patient is unsafe to return home alone. Patient is being discharged to [facility] for inpatient rehabilitation services. Patient will need an orthopedic follow-up appointment 2 to 3 weeks out from her surgery date with Dr. Whitehead. Patient to continue weightbearing as tolerated with left hip precautions - to be set up by [facility]. Patient to be on 81mg aspirin BID for the next 6 weeks per ortho's recommendation. Acute Uncomplicated UTI: UA abnormal with evidence fo 3+ bacteria and positive nitrates on admission. She is completed 4 days of IV Rocephin therapy. Discharging her on a 3-day course of po cefdinir to complete a full 7-day course. Initial urine culture was contaminated. Repeat urine culture still pending at time of discharge. Parkinson's Disease: Continue home medications including carbidopa-levodopa, amantadine and rasagiline. Patient follows Dr. Weber [[facility]]. According to her most recent visit on 02/08/24, patient had an emergence of some benign hallucinations and perhaps a REM behavior disorder issue. Recommendation at that time was to start her on melatonin 3mg at bedtime. Continue melatonin 3mg HS at time of discharge. Iron, Folate and B12 Deficiency Anemia: Likely with dilutional component. Do not suspect blood loss from surgery is playing a role. Previous Hgb was 13.6 in January 2024. Hgb had dropped to 9.9 on 05/11/24. She received IV Venofer 200mg and 400mg doses. Hgb 9.9 at time of discharge. Continue B12 and folic acid supplementation. Patient also to be sent home on iron supplementation. Will need anemia panel rechecked in 3 months. Vitamin D Deficiency: Increased vitamin D supplementation to 50mcg daily, will need a vitamin D level recheck in 2-3 months. HTN: Patient not currently on any antihypertensive medications. Does utilize Lasix 20 mg daily PRN when she experiences episodes of lower extremity edema. PCP: Jo Ann Smith DO Disposition: Patient is being discharged in stable condition to [facility] for rehabilitation services, son (Broderick) updated. Patient seen in collaboration with Dr. Red. Please see addendum. I spent a total of 55 minutes coordinating, documenting, and providing care for this patient excluding time spent in the performance of separately billed services. This included personally reviewing all current laboratories and imaging studies, medical reconciliation, outpatient chart review and discussion with specialists. This chart was completed in part utilizing Speech Voice Recognition Software. Grammatical errors, random word insertions, pronoun errors, and incomplete sentences are an occasional consequence of this system due to software limitations, ambient noise, and hardware issues. Any formal questions or con cerns about the content, text, or information contained within the body of this dictation should be directly addressed to the provider for clarification. Notes For Next Care Provider Patient to be on aspirin 81mg BID for a total of 6 weeks per recommendation from orthopedic surgery - to be completed on 06/21/2024. Will need an outpatient DEXA scan. Vitamin D supplementation increased to 50 mcg daily. Will need to recheck her vitamin D level in 2 to 3 months. She is to complete a 3-day course of oral cefdinir 300mg BID as she was found to have a UTI during her admission. Her final urine culture is still pending at time of discharge. Patient was started on iron, folate and B12 supplementation during her admission due to anemia. She received 600 mg of IV Venofer in total. Will need repeat anemia panel in approximately 3 months. Medication Changes From Visit 1. Aspirin 81mg BID for a total of 6 WEEKS, course to be completed on 06/21/2024. 2. Increased vitamin D supplementation to 50mcg daily. 3. Set to complete a 3-day course of oral cefdinir 300mg BID for treatment of a UTI. 4. Started on a daily iron, folate and B12 supplementation due to anemia. Admission HPI Per Admitting Provider This is a 73-year-old female PMHx of Parkinson's, breast cancer in 2006 status post partial left mastectomy and radiation, HTN, who presents to the hospital after sustaining a fall while she was walking outside, became dizzy as she turned her head too quickly, and fell onto her left side subsequently having severe left-sided hip pain and was unable to stand up. She reports that getting dizzy is common for her with Parkinsons, and normally this occurs and she is able to reach out and hold herself steady for a few moments, and then continues. Today since she was outside, and was ambulating independently, had nothing to support her. She denies hitting her head, no other sustained lacerations or trauma. Pt reports pain in the left hip with minimal leg movement. So far in the ER the patient has been given morphine sulfate 4 mg IV, she reports that it has worn off at this point and does not feel adequate pain control. She also is having severe muscle spasms in the left thigh. She lives at home independently, son at bedside supports the history. Patient took morning medications for Parkinson's however missed afternoon dosing of carbidopa levodopa, gabapentin and amantadine. Patient is found to have a left Femoral neck fracture on imaging. Admission Exam Per Admitting Provider General: awake, alert, no apparent distress, white female, Parkinson-like movements with multiple limbs slightly flailing at times Head: Normocephalic, atraumatic ENT: PERRL, EOMI, no pharyngeal exudate, mucous membranes moist Chest: Clear to auscultation, on room air, no adventitious breath sounds Cardiac: Regular rate and rhythm, no murmur, no JVD, normal peripheral pulses, good capillary refill Abdominal: NABS x 4 quadrants, soft, nondistended, nontender to palpation, no rebound or guarding Extremities: LLE is shortened and externally rotated, no numbness or tingling distally, peripheral pulses intact distally, otherwise normal inspection, no peripheral edema or erythema, calfs nontender to palpation Psych: Normal mood and affect Neuro: AAO x 3, strength intact bilaterally and rated 5/5, no motor deficits, speech is clear, no peripheral sensory deficits Discharge Exam General: WD/WN, vitals as above, NAD, sitting up in bed, pleasant, conversing appropriately, Parkinsonian features. A+Ox3, euthymic affect. HEENT: Normocephalic, atraumatic. PERRL, conjunctivae normal, anicteric sclerae. External ear and nose normal, oropharynx normal. Respiratory: Normal respiratory effort, lungs clear to auscultation, no wheeze, rales, rhonchi. No accessory muscle use. Cardiovascular: Regular rate, rhythm, no murmur, normal peripheral pulses, no BLE edema. Vessels: No JVD. Abdomen/GI: Normal bowel sounds, soft, nontender, no hepatosplenomegaly. Extremities/Musculoskeletal: No cyanosis or clubbing, LLE post-op bandaging dry and intact without drainage. Neurologic: EOMI, no focal deficits, CN's II-XI not formally tested but appear grossly intact bilaterally. Skin: No rashes, normal color, warm/dry. Updated Medication List Medication Instructions Recorded Confirmed Type carbidopa 25 mg-levodopa 100 mg 1 tab PO QID 04/21/18 05/09/24 History tablet (Sinemet) cholecalciferol (vitamin D3) 25 1,000 units PO QAM 04/21/18 05/09/24 History mcg (1,000 unit) capsule carbidopa 50 mg-levodopa 200 1 tab PO HS 09/21/18 05/09/24 History mg-entacapone 200 mg tablet acetaminophen 500 mg tablet 500 mg PO Q6H PRN Pain 05/24/19 05/09/24 History (Tylenol Extra Strength) docusate sodium 100 mg capsule 100 mg PO BID 05/24/19 05/09/24 History (Colace) gabapentin 400 mg capsule 400 mg PO QAM #30 caps 05/24/19 05/09/24 Rx gabapentin 600 mg tablet 600 mg PO BID 09/28/19 05/09/24 History polyethylene glycol 3350 17 gram 17 g PO QPM 04/23/20 05/09/24 History oral powder packet (Miralax) trazodone 50 mg tablet 50 mg PO HS 04/23/20 05/09/24 History amantadine HCl 100 mg tablet 100 mg PO TID 10/01/21 05/09/24 History calcium carbonate 1,500 mg PO DAILY 10/01/21 05/09/24 History rasagiline 0.5 mg tablet (Azilect) 0.25 mg PO QAM 10/01/21 05/09/24 History sennosides 8.6 mg tablet 8.6 mg PO QAM 10/01/21 05/09/24 History meloxicam 7.5 mg tablet 7.5 mg PO QAM 05/09/24 05/09/24 History aspirin 81 mg tablet,delayed 81 mg PO BID #30 tabs 05/13/24 Rx release cefdinir 300 mg capsule 300 mg PO BID 3 days #6 caps 05/13/24 Rx cyanocobalamin (vitamin B-12) 500 500 mcg PO QAM #30 tabs 05/13/24 Rx mcg tablet ferrous sulfate 325 mg (65 mg 325 mg PO DAILY #30 tabs 05/13/24 Rx iron) tablet (Iron (ferrous sulfate)) fluticasone propionate 50 2 spray NA DAILY #16 grams 05/13/24 Rx mcg/actuation nasal spray,suspension folic acid 1 mg tablet 1 mg PO QAM #30 tabs 05/13/24 Rx melatonin 3 mg tablet 3 mg PO HS 30 days #30 tabs 05/13/24 Rx Hospital Stay Data Consultations 05/09/24 16:30 ED Decision to Admit Stat 05/09/24 20:18 Consult Orthopedic Surgery Routine Procedures Performed Operation Date: 05/10/24 07:00 Actual Procedures p Left Hip Hemiarthroplasty, Cemented(Left) - Andre Whitehead MD Diagnostic Imagining Performed 05/09/24 22:51 CT head/brain wo con Stat Discharge Instructions Given to Patient (Per Discharging Provider) Gamal Caicedo were admitted to the hospital after sustaining a fall and found to have a left femoral neck fracture on presenting imaging. You underwent a cemented left hip hemiarthroplasty performed by Dr. Andre Whitehead on 05/10/2024. You were seen and evaluated by both physical and occupational therapy. You are being discharged to [facility] for rehabilitation services. You will have an orthopedic follow-up appointment in approximately 2 to [address] Andre Whitehead, this will be arranged at [facility]. You were also diagnosed with an acute urinary tract infection (UTI) while you were admitted. We treated you with IV antibiotic therapy and have now transitioned you to oral cefdinir. You will be completing a 3-day course of oral cefdinir in order to complete a total antibiotic course of 7 days to treat this UTI. Please take this medication as prescribed and in its entirety! You have a urine culture pending at time of discharge. This will tell us if you are growing any bacteria in your urine. You had to receive IV iron therapy during her admission due to a low hemoglobin level. You are being discharged on iron, B12 and folate supplementation therapy. You will need a repeat anemia panel in approximately 3 months. You were also started on 81mg aspirin twice daily by orthopedic surgery. You will need to continue taking aspirin 81mg twice daily until 06/21/2024 in order to complete a full 6-week course of therapy. We also increased your dose of vitamin D supplementation. You will need a repeat vitamin D level in approximately 2 to 3 months. MEDICATION CHANGES: 1. Aspirin 81mg twice daily for a total of 6 weeks, course to be completed on 06/21/2024. 2. Increased vitamin D supplementation to 50 mcg daily. 3. Will complete a 3-day course of oral cefdinir 300 mg twice daily. 4. You were started on daily iron, folate and B12 supplementation due to anemia. SEEK MEDICAL ATTENTION IF YOU HAVE: * temperature above 101F * chest pain or trouble breathing * abdominal pain, nausea, vomiting * diarrhea, dark stools or bloody stools * any unanswered questions or concerns Call 911 if symptoms are severe. Please take good care of yourself. It has been a pleasure taking care of you. If you have any questions regarding your recent hospitalization please contact [facility] and request Sol Hernandezist @ [phone]. Total Time Total Time Spent Total Time Spent (In Minutes): 55 Supervising Physician Co-Signing Physician Notes Patient is a status post left femoral neck fracture repair, stable, reports pain under control, dc to placement today. Discussed with Chely KAUR, plan to dc on 3 days of cefdinir course to complete 7 d atb therapy for uti. Pt to f/u w/ ortho in about 2 weeks time on dc. I have seen and examined the patient and have discussed the case with the provider above. I agree with the assessment and plan as stated.
--- NOTE | 2024-05-13 13:47 | Orthopedic Progress Note ---
Date of Service May 13, 2024 Assessment & Plan (1) History of left hip hemiarthroplasty: Plan: 73-year-old female significant underlying Parkinson's now postop day 3 from left cemented bipolar hip arthroplasty doing well. Pains improving. She is getting around reasonably well. She is hoping to go to rehab. Plan: 1. DVT prophylaxis including thigh-high teds, SCDs, aspirin twice a day for 6 weeks. 2. PT/OT. She can weight-bear as tolerated. She does [place] hip precautions. 3. Pain control doing okay with current pain regimen. 4. Disposition she is okay for discharge anytime medically stable. I do see her back 2 to 3 weeks out from surgery date. Admission and Anticipated Discharge Date Admission Date: May 09, 2024 Subjective 73-year-old female now postop day 3 from left cemented bipolar hip arthroplasty for fracture. She is doing pretty well this morning. Pains controlled. She is neurologically intact. She is hoping to go to rehab. Physical Exam Physical Exam: Physical examination reveals a pleasant middle-age female. As she is sitting up in her bedside chair looks pretty comfortable this morning. Her Prevena VAC dressing is in place. Her thigh is soft and supple. Leg lengths are equal. She is neurologically intact. Results & Data Vital Signs (Past 12 Hours) Vital Signs Temp Pulse Resp BP Pulse Ox Pulse Ox O2 Del Method 05/13/24 10:05 96 05/13/24 08:19 36.5 C 69 18 166/89 H 98 Room Air 05/13/24 07:15 Room Air 05/13/24 02:38 94 O2 Del Method 05/13/24 10:05 Room Air 05/13/24 08:19 05/13/24 07:15 05/13/24 02:38 Room Air
[2024-05-13 14:06] VITALS: PULSE 77; O2SAT 96
== END 2024-05-13 14:39 | DRG 522 ==
LOC: ED 15:24 → EDINP 16:46 → SUATTDRO 16:46 → 3N 20:19